=== PATIENT | male | born 1945 | race Caucasian/White ===

== ENCOUNTER 2020-01-26 12:06 | Outpatient (REF) | payer MEDICARE, SELFPAY ==
[2020-01-26 13:46] LABS: MANUAL DIFF FLAG NO
[2020-01-26 13:51] LABS: Basophils Percent Auto 0.8 % (0-2); Eosinophils Absolute Auto 0.1 X10*3/uL (0.0-0.4); Eosinophils Percent Auto 1.7 % (0-4); Hematocrit 39.9 % (42-52); Hemoglobin 14.2 g/dl (14.0-18.0); Imm Gran Abs Auto 0.01 X10*3/uL (0.00-0.03); Imm Gran Pct Auto 0.2 % (0.0-0.4); Lymphocytes Absolute Auto 1.8 X10*3/uL (1.2-4.9); Lymphocytes Percent Auto 37.3 % (20-40); Mean Corpuscular HGB Conc 35.6 g/dl (31.0-36.0); Mean Corpuscular Hemoglobin 39.2 pg (27.0-33.0); Mean Platelet Volume 9.8 fL (9.4-12.4); Monocytes Absolute Auto 0.4 X10*3/uL (0.1-1.2); Monocytes Percent Auto 8.5 % (2-11); Neutrophils Absolute Auto 2.5 X10*3/uL (2.0-8.3); Neutrophils Percent Auto 51.5 % (45-73); Platelet Count 217 X10*3/uL (160-400); Red Blood Count 3.62 X10*6/uL (4.60-5.80); Red Cell Distribution Width 11.6 % (11.0-16.0); White Blood Count 4.8 X10*3/uL (4.8-10.8)
[2020-01-26 13:52] LABS: Mean Corpuscular Volume 110.2 fL (80-98)
[2020-01-26 14:36] LABS: Alanine Aminotransferase 61 U/L (0-40); Albumin Level 4.4 g/dL (3.5-5.0); Alkaline Phosphatase 65 U/L (39-117); Anion Gap 12 (12-20); Aspartate Amino Transferase 69 U/L (5-37); Bilirubin Total 0.7 mg/dL (0.0-1.0); Blood Urea Nitrogen 17 mg/dL (9-16); Calcium 9.2 mg/dL (8.4-10.2); Carbon Dioxide 27 mmol/L (22-29); Chloride 105 mmol/L (96-108); Estimated Glomerular Filt Rate > 60; Glucose Random 114 mg/dL (60-115); Sodium 139 mmol/L (135-145); Total Protein 6.8 g/dL (6.5-8.0)
== END 2020-01-26 12:07 | disposition home or self-care (01) ==
LOC: HO.10HDL 12:06
PROVIDERS: Visit Provider Internal Medicine
DX: I25.10 Atherosclerotic heart disease of native coronary artery without angina pectoris (principal); I48.0 Paroxysmal atrial fibrillation; R79.89 Other specified abnormal findings of blood chemistry
CPT/HCPCS: 36415; 80053; 85025; 85060

== ENCOUNTER 2020-02-26 08:14 | Outpatient (REF) | payer MEDICARE, SELFPAY ==
[2020-02-26 09:28] LABS: Blood Urea Nitrogen 19 mg/dL (9-16); Estimated Glomerular Filt Rate > 60
== END 2020-02-26 08:15 | disposition home or self-care (01) ==
LOC: HO.LAB 08:14
PROVIDERS: PCP Internal Medicine; Visit Provider Internal Medicine
DX: I48.91 Unspecified atrial fibrillation (principal)
CPT/HCPCS: 82565; 84520

== ENCOUNTER → 2020-03-28 15:53 | Outpatient (BNVA) | payer MEDICARE, SELFPAY | PROVIDERS: PCP Internal Medicine; Visit Provider Internal Medicine Cardiovascular Disease | DX: I48.19 Other persistent atrial fibrillation (principal) | CPT/HCPCS: 99212 ==

== ENCOUNTER 2020-03-29 09:54 | Day surgery (SDC) | payer MEDICARE, SELFPAY ==
[2020-03-29] VITALS (7 sets, daily range): BP systolic 97–138; BP diastolic 56–74; PULSE 62–115; RESP 14–18; TEMP 36.1–36.2; O2SAT 97–99; BMI 29.7
--- NOTE | 2020-03-29 11:42 | HO.ANESPROP2 ---
[facility] Past Medical History Medical History Bilateral carotid artery disease HTN (hypertension) Persistent atrial fibrillation Family History Family History Father Stroke Mother No problems noted. Surgical History Surgical History History of carotid endarterectomy Hx of cholecystectomy Social History Social History Smoking Status: Never smoker Second Hand Smoke Exposure: No Use of substances other than those prescribed or required for medical reasons: No Advance Directives: Yes Advance Directives Information Provided: No Advance Directives on File: Yes Advance Directives Date on File: 01/26/20 Meds Allergies Allergy/AdvReac Type Severity Reaction Status Date / Time nevirapine [From Viramune] Allergy Mild HIGH Verified 03/29/20 10:15 TEMP-WILLA JOHNSONS SYNDROME abacavir [From ZIAGEN] Allergy Unknown MOVES FAT Verified 03/29/20 10:15 IN BODY neveripine Allergy Unknown brown/Aneesh Uncoded 12/24/19 00:00 syndrome ziagen Allergy Unknown abnormal Uncoded 12/24/19 00:00 fat distribution Home Medications Medication Instructions Recorded Confirmed Type albuterol sulfate 90 mcg/actuation INHALATION 03/28/20 03/28/20 History aerosol inhaler alprazolam 0.25 mg tablet 0.25 mg PO BID PRN 03/28/20 03/28/20 History amiodarone 100 mg tablet 200 mg PO DAILY 03/28/20 03/28/20 History atorvastatin 40 mg tablet 40 mg PO DAILY 03/28/20 03/28/20 History cholecalciferol (vitamin D3) 50 50 mcg PO DAILY 03/28/20 03/28/20 History mcg (2,000 unit) capsule efavirenz 600 mg tablet 600 mg PO BEDTIME 03/28/20 03/28/20 History emtricitabine 200 mg-tenofovir 1 tab PO DAILY 03/28/20 03/28/20 History alafenamide fumarate 25 mg tablet gabapentin 300 mg capsule 300 mg PO BID 03/28/20 03/28/20 History ipratropium bromide 0.03 % nasal spray INTRANASAL 03/28/20 03/28/20 History spray levocarnitine 330 mg tablet mg PO 03/28/20 03/28/20 History loperamide 2 mg capsule 2 mg PO Q6H PRN 03/28/20 03/28/20 History metoprolol tartrate 25 mg tablet 25 mg PO BID 03/28/20 03/28/20 History multivitamin,aa-waqf-nsjxwykz 1 tab PO DAILY 03/28/20 03/28/20 History omega 8-ywj-bmm-fish oil 100 cap PO 03/28/20 03/28/20 History mg-160 mg-1,000 mg capsule raltegravir 400 mg tablet 400 mg PO BID 03/28/20 03/28/20 History rivaroxaban 20 mg tablet 20 mg PO DAILY 03/28/20 03/28/20 History tamsulosin 0.4 mg capsule 0.8 mg PO BEDTIME 03/28/20 03/28/20 History vitamin B complex 1 tab PO DAILY 03/28/20 03/28/20 History zidovudine 300 mg tablet 300 mg PO BID 03/28/20 03/28/20 History rivaroxaban [Xarelto] 1 tab PO DAILY 03/29/20 03/29/20 History Exam Exam Date and Time: March 29, 2020 1142 Height,Weight and Vital Signs: Height 5 ft 10 in Weight 93.894 kg Last Vital Signs Temp 97.2 F 03/29/20 10:24 Pulse 115 H 03/29/20 10:24 Resp 16 03/29/20 10:24 BP 100/72 03/29/20 10:24 Pulse Ox 97 03/29/20 10:24 Airway Mallampati Class: II (Top 4 front caps, ) TM Dist: >3cm Neck ROM: Full Partial: Upper (Perm) Heart: RRR Lungs: CTA BL Assessment and Plan Assessment Anesthesia Assessment: Anesthesia Plan Discussed and Chart Reviewed Final Anesthetic Review NPO: Yes (Sip water with meds) ASA Class: II Final Preanesthetic Review: Meds/Allgs Chart Reviewed and Consent Obtained/Reviewed Patient Risk: Intermediate Procedure Risk: Intermediate Anesthetic Plan Anesthetic Plan: MAC: Disposition: Standard PACU
--- NOTE | 2020-03-29 11:52 | MHC.SHP ---
Pre-Procedural Eval Section A The patient is an INPATIENT: No Changes since office visit: Yes Changes in Medication and Yes Patient answered all questions; No Cold of Flu in the past 2 weeks and No New Medical Problems The History & Physical has been completed within 30 days and I have reviewed it.: Yes Section B Chief Complaint: paroxysmal atrial fibrillation Allergies: Allergies Allergy/AdvReac Type Severity Reaction Status Date / Time nevirapine [From Viramune] Allergy Mild HIGH Verified 03/29/20 10:15 TEMP-WILLA JOHNSONS SYNDROME abacavir [From ZIAGEN] Allergy Unknown MOVES FAT Verified 03/29/20 10:15 IN BODY neveripine Allergy Unknown brown/Aneesh Uncoded 12/24/19 00:00 syndrome ziagen Allergy Unknown abnormal Uncoded 12/24/19 00:00 fat distribution Plan Patient has been examined and remains a candidate for the planned procedure
--- NOTE | 2020-03-29 12:11 | ECG_ITS ---
Test Reason : S/P CARDIOVERSION Blood Pressure : / mmHG Vent. Rate : 068 BPM Atrial Rate : 068 BPM P-R Int : 194 ms QRS Dur : 086 ms QT Int : 416 ms P-R-T Axes : 049 031 058 degrees QTc Int : 442 ms Normal sinus rhythm Nonspecific T wave abnormality Abnormal ECG When compared with ECG of 09-OCT-2018 11:34, No significant changes seen Referred By: Louie Bustamante Electronically Signed By:VIVI ANDERSON
--- NOTE | 2020-03-29 12:19 | HO.CARDIVERS ---
Cardioversion Procedure Note Cardioversion Date of Procedure: 03/29/2020 Ordering Provider: myself Performing Provider: myself Indication for Procedure: persistent symptomatic atrial fibrillation after recent ablation Pre-Op Diagnosis: persistent atrial fibrillation Post-Op Diagnosis: same Performed with Transesophageal Echo: No History: see the preoperative history and physical Consent: Verbal and Written consent was obtained from the patient before starting. The patient was made aware of the risk, benefit, alternatives, 2nd opinion. Patient agreed Procedure: After consent obtained, cardioversion pads were attached inotrope posterior configurationand the patient was sedated by the anesthesia team. Once adequate sedation achieved, patient was delivered 200 joules of biphasic synchronized energy into posterior configuration. Patient converted successfully to sinus rhythm Complications: none Impression: 1. resistant atrial fibrillation requiring repeat cardioversion after recent ablation Recommendations: plan: 1. amiodarone 200 mg b.i.d. for 1 week followed by 200 mg daily 2. Continue Xarelto uninterrupted 3. 12 lead EKG 4. Holter monitor in 2 weeks followed by office visit in 4 weeks
--- NOTE | 2020-03-29 13:09 | HO.POSTANES ---
Post Anesthesia Evaluation Post Anesthesia Evaluation Vital Signs: Vital Signs Temp Pulse Resp BP Pulse Ox 03/29/20 12:55 97 F 65 18 116/74 99 03/29/20 12:40 62 18 111/71 98 03/29/20 12:26 71 16 97/63 99 03/29/20 12:20 66 16 105/56 L 99 03/29/20 12:15 67 16 138/70 98 03/29/20 12:10 97 F 67 14 138/70 99 03/29/20 10:24 97.2 F 115 H 16 100/72 97 Anesthesia: General (mask) Mental Status: Awake Pain Control: Satisfactory Nausea/Vomiting: None Hydration: Adequate Anesthesia-Related Issues: No Anes. Related Issues
== END 2020-03-29 13:15 | disposition home or self-care (01) ==
PROVIDERS: PCP Internal Medicine; Visit Provider Internal Medicine Cardiovascular Disease
PROC: 5A2204Z Restoration of Cardiac Rhythm, Single (ICD-10-PCS; principal; 2020-03-29 12:00)
DX: I48.19 Other persistent atrial fibrillation (principal); Z79.01 Long term (current) use of anticoagulants; I10 Essential (primary) hypertension
CPT/HCPCS: 92960; 93005

== ENCOUNTER 2020-03-31 10:23 | Outpatient (REF) | payer MEDICARE, SELFPAY ==
[2020-03-31 11:32] LABS: MANUAL DIFF FLAG NO
[2020-03-31 11:48] LABS: Basophils Absolute Auto 0.1 X10*3/uL (0.0-0.2); Basophils Percent Auto 0.8 % (0-2); Eosinophils Absolute Auto 0.1 X10*3/uL (0.0-0.4); Eosinophils Percent Auto 2.1 % (0-4); Hematocrit 38.3 % (42-52); Hemoglobin 13.4 g/dl (14.0-18.0); Imm Gran Abs Auto 0.03 X10*3/uL (0.00-0.03); Imm Gran Pct Auto 0.5 % (0.0-0.4); Lymphocytes Absolute Auto 2.9 X10*3/uL (1.2-4.9); Lymphocytes Percent Auto 43.5 % (20-40); Mean Corpuscular Hemoglobin 38.6 pg (27.0-33.0); Mean Platelet Volume 10.1 fL (9.4-12.4); Monocytes Absolute Auto 0.7 X10*3/uL (0.1-1.2); Monocytes Percent Auto 10.9 % (2-11); Neutrophils Absolute Auto 2.8 X10*3/uL (2.0-8.3); Neutrophils Percent Auto 42.2 % (45-73); Platelet Count 268 X10*3/uL (160-400); Red Blood Count 3.47 X10*6/uL (4.60-5.80); White Blood Count 6.6 X10*3/uL (4.8-10.8)
[2020-03-31 11:57] LABS: Mean Corpuscular Volume 110.4 fL (80-98)
[2020-03-31 12:07] LABS: Estimated Average Glucose 117 mg/dL; Hemoglobin A1c % 5.7 %
[2020-03-31 12:08] LABS: Alanine Aminotransferase 44 U/L (0-40); Albumin Level 4.4 g/dL (3.5-5.0); Alkaline Phosphatase 67 U/L (39-117); Anion Gap 13 (12-20); Aspartate Amino Transferase 35 U/L (5-37); Bilirubin Total 0.4 mg/dL (0.0-1.0); Blood Urea Nitrogen 18 mg/dL (9-16); Calcium 9.2 mg/dL (8.4-10.2); Carbon Dioxide 26 mmol/L (22-29); Chloride 105 mmol/L (96-108); Estimated Glomerular Filt Rate > 60; Glucose Random 96 mg/dL (60-115); Potassium 4.5 mmol/l (3.3-5.1); Sodium 139 mmol/L (135-145); Total Protein 6.9 g/dL (6.5-8.0)
[2020-04-03 12:23] LABS: Absolute CD3 Count 2294 cells/uL (840-3060); Absolute CD4 Count 976 cells/uL (490-1740); Absolute CD8 Count 1320 cells/uL (180-1170); Absolute Lymphocytes 2848 cells/uL (850-3900); CD4 CD8 Ratio 0.74 (0.86-5.00); Percent CD3 Cells 81 % (57-85); Percent CD4 Cells 34 % (30-61); Percent CD8 Cells 46 % (12-42)
[2020-04-03 20:57] LABS: HIV RNA PCR Qn Copies 31 copies/mL (NOT DETECTED); HIV RNA PCR Qn Log Copies 1.49 (NOT DETECTED)
[2020-04-28 16:25] LABS: CT PCR NOT DETECTED (Not Detect.); NG PCR NOT DETECTED (Not Detect.)
== END 2020-03-31 10:24 | disposition home or self-care (01) ==
LOC: HO.LAB 10:23
PROVIDERS: PCP Internal Medicine; Visit Provider Internal Medicine Infectious Disease
DX: B20 Human immunodeficiency virus [HIV] disease (principal); R73.9 Hyperglycemia, unspecified
CPT/HCPCS: 36415; 80053; 83036; 85025; 86359; 86360; 87491; 87536; 87591

== ENCOUNTER → 2020-04-07 08:58 | Outpatient (BNVA) | payer MEDICARE, SELFPAY | PROVIDERS: PCP Internal Medicine; Visit Provider Internal Medicine Cardiovascular Disease | DX: I48.19 Other persistent atrial fibrillation (principal) | CPT/HCPCS: 93005; 99212 ==

== ENCOUNTER 2020-04-13 11:37 | Day surgery (SDC) | payer MEDICARE, SELFPAY ==
[2020-04-10 15:09] VITALS: BMI 30.1
--- NOTE | 2020-04-12 08:42 | P.CONAN_ITS ---
Documented by User: Anisha Magallon 04/12/20 08:46 HPI - Anesthesia Eval Consult details Narrative: 75yo M for Cardioversion s/p Cardioversion 03/29/20 with GA-mask [facility] Past Medical History Medical History Bilateral carotid artery disease History of cardioversion HTN (hypertension) Persistent atrial fibrillation Family History Family History Father Stroke Mother No problems noted. Surgical History Surgical History History of carotid endarterectomy Hx of cholecystectomy Social History Social History Smoking Status: Former smoker Smoking Quit Date: 40 YRS AGO Second Hand Smoke Exposure: No Use of substances other than those prescribed or required for medical reasons: Yes Substance Use Frequency: Occasionally Advance Directives: Yes Advance Directives on File: Yes Advance Directives Date on File: 01/26/20 Meds Allergies Allergy/AdvReac Type Severity Reaction Status Date / Time nevirapine [From Viramune] Allergy Mild HIGH Verified 04/10/20 15:15 TEMP-WILLA JOHNSONS SYNDROME abacavir [From ZIAGEN] Allergy Unknown MOVES FAT Verified 04/10/20 15:15 IN BODY neveripine Allergy Unknown brown/Aneesh Uncoded 04/13/20 11:40 syndrome ziagen Allergy Unknown abnormal Uncoded 04/13/20 11:40 fat distribution Home Medications Medication Instructions Recorded Confirmed Type albuterol sulfate 90 mcg/actuation INHALATION 03/28/20 04/07/20 History aerosol inhaler alprazolam 0.25 mg tablet 0.25 mg PO BID PRN 03/28/20 04/07/20 History atorvastatin 40 mg tablet 40 mg PO DAILY 03/28/20 04/07/20 History cholecalciferol (vitamin D3) 50 50 mcg PO DAILY 03/28/20 04/07/20 History mcg (2,000 unit) capsule efavirenz 600 mg tablet 600 mg PO BEDTIME 03/28/20 04/07/20 History emtricitabine 200 mg-tenofovir 1 tab PO DAILY 03/28/20 04/07/20 History alafenamide fumarate 25 mg tablet gabapentin 300 mg capsule 300 mg PO BID 03/28/20 04/07/20 History ipratropium bromide 0.03 % nasal spray INTRANASAL 03/28/20 04/07/20 History spray levocarnitine 330 mg tablet mg PO 03/28/20 04/07/20 History loperamide 2 mg capsule 2 mg PO Q6H PRN 03/28/20 04/07/20 History metoprolol tartrate 25 mg tablet 25 mg PO BID 03/28/20 04/07/20 History multivitamin,qx-ivpk-dyzvswfa 1 tab PO DAILY 03/28/20 04/07/20 History omega 7-wqa-chy-fish oil 100 cap PO 03/28/20 04/07/20 History mg-160 mg-1,000 mg capsule raltegravir 400 mg tablet 400 mg PO BID 03/28/20 04/07/20 History rivaroxaban 20 mg tablet 20 mg PO DAILY 03/28/20 04/07/20 History tamsulosin 0.4 mg capsule 0.8 mg PO BEDTIME 03/28/20 04/07/20 History vitamin B complex 1 tab PO DAILY 03/28/20 04/07/20 History zidovudine 300 mg tablet 300 mg PO BID 03/28/20 04/07/20 History Xarelto 1 tab PO DAILY 03/29/20 04/07/20 History ergocalciferol (vitamin D2) 2,000 unit PO DAILY 04/13/20 04/13/20 History [Vitamin D2] pantoprazole 40 mg PO BID 04/13/20 04/13/20 History Exam Exam Date and Time: April 12, 2020 0842 Height,Weight and Vital Signs: Height 5 ft 10 in Weight 95.254 kg Pertinent Lab Results Pertinent Lab Results: Laboratory Tests 03/31/20 03/31/20 10:36 10:36 WBC 6.6 Hgb 13.4 L Hct 38.3 L Plt Count 268 Sodium 139 Potassium 4.5 Chloride 105 Carbon Dioxide 26 BUN 18 H Creatinine 0.98 Assessment and Plan Assessment Anesthesia Assessment: Chart Reviewed Documented by User: Jimmy Landeros MD 04/13/20 12:30 [facility] Past Medical History Medical History Bilateral carotid artery disease History of cardioversion HTN (hypertension) Persistent atrial fibrillation Family History Family History Father Stroke Mother No problems noted. Surgical History Surgical History History of carotid endarterectomy Hx of cholecystectomy Social History Social History Smoking Status: Former smoker Smoking Quit Date: 40 YRS AGO Second Hand Smoke Exposure: No Use of substances other than those prescribed or required for medical reasons: Yes Substance Use Frequency: Occasionally Advance Directives: Yes Advance Directives on File: Yes Advance Directives Date on File: 01/26/20 Meds Allergies Allergy/AdvReac Type Severity Reaction Status Date / Time nevirapine [From Viramune] Allergy Mild HIGH Verified 04/10/20 15:15 TEMP-WILLA JOHNSONS SYNDROME abacavir [From ZIAGEN] Allergy Unknown MOVES FAT Verified 04/10/20 15:15 IN BODY neveripine Allergy Unknown brown/Aneesh Uncoded 04/13/20 11:40 syndrome ziagen Allergy Unknown abnormal Uncoded 04/13/20 11:40 fat distribution Home Medications Medication Instructions Recorded Confirmed Type albuterol sulfate 90 mcg/actuation INHALATION 03/28/20 04/07/20 History aerosol inhaler alprazolam 0.25 mg tablet 0.25 mg PO BID PRN 03/28/20 04/07/20 History atorvastatin 40 mg tablet 40 mg PO DAILY 03/28/20 04/07/20 History cholecalciferol (vitamin D3) 50 50 mcg PO DAILY 03/28/20 04/07/20 History mcg (2,000 unit) capsule efavirenz 600 mg tablet 600 mg PO BEDTIME 03/28/20 04/07/20 History emtricitabine 200 mg-tenofovir 1 tab PO DAILY 03/28/20 04/07/20 History alafenamide fumarate 25 mg tablet gabapentin 300 mg capsule 300 mg PO BID 03/28/20 04/07/20 History ipratropium bromide 0.03 % nasal spray INTRANASAL 03/28/20 04/07/20 History spray levocarnitine 330 mg tablet mg PO 03/28/20 04/07/20 History loperamide 2 mg capsule 2 mg PO Q6H PRN 03/28/20 04/07/20 History metoprolol tartrate 25 mg tablet 25 mg PO BID 03/28/20 04/07/20 History multivitamin,gp-hqbq-lieekrdc 1 tab PO DAILY 03/28/20 04/07/20 History omega 6-dcu-hxu-fish oil 100 cap PO 03/28/20 04/07/20 History mg-160 mg-1,000 mg capsule raltegravir 400 mg tablet 400 mg PO BID 03/28/20 04/07/20 History rivaroxaban 20 mg tablet 20 mg PO DAILY 03/28/20 04/07/20 History tamsulosin 0.4 mg capsule 0.8 mg PO BEDTIME 03/28/20 04/07/20 History vitamin B complex 1 tab PO DAILY 03/28/20 04/07/20 History zidovudine 300 mg tablet 300 mg PO BID 03/28/20 04/07/20 History Xarelto 1 tab PO DAILY 03/29/20 04/07/20 History ergocalciferol (vitamin D2) 2,000 unit PO DAILY 04/13/20 04/13/20 History [Vitamin D2] pantoprazole 40 mg PO BID 04/13/20 04/13/20 History Exam Airway Mallampati Class: II TM Dist: >3cm Neck ROM: Full Loose/Missing/Broken Teeth: Yes (Front crowns) Heart: irregular Assessment and Plan Assessment Anesthesia Assessment: Anesthesia Plan Discussed and Chart Reviewed Final Anesthetic Review NPO: Yes ASA Class: III Final Preanesthetic Review: No Changes in Pt Med Stat, Meds/Allgs Chart Reviewed, Consent Obtained/Reviewed and Anes Risks/Benef Reviewed Patient Risk: Intermediate Procedure Risk: Low Anesthetic Plan Anesthetic Plan: GA Disposition: Standard PACU
[2020-04-13] VITALS (16 sets, daily range): BP systolic 86–147; BP diastolic 49–99; PULSE 54–82; RESP 16; TEMP 36.2–36.4; O2SAT 98–99; BMI 29.8
--- NOTE | 2020-04-13 12:04 | MHC.SHP ---
Pre-Procedural Eval Section A The patient is an INPATIENT: No Changes since office visit: Yes Patient answered all questions; No Cold of Flu in the past 2 weeks, No New Medical Problems and No Changes in Medication The History & Physical has been completed within 30 days and I have reviewed it.: Yes Section B Chief Complaint: afib Allergies: Allergies Allergy/AdvReac Type Severity Reaction Status Date / Time nevirapine [From Viramune] Allergy Mild HIGH Verified 04/10/20 15:15 TEMP-WILLA JOHNSONS SYNDROME abacavir [From ZIAGEN] Allergy Unknown MOVES FAT Verified 04/10/20 15:15 IN BODY neveripine Allergy Unknown brown/Aneesh Uncoded 04/13/20 11:40 syndrome ziagen Allergy Unknown abnormal Uncoded 04/13/20 11:40 fat distribution Plan I have reviewed the history and physical and performed a pertinent physical examination on my patient. No changes have occurred unless specified.
[2020-04-13] MEDS: Lactated Ringers 1,000 ML 50 ML IVCONT (12:11)
--- NOTE | 2020-04-13 12:39 | ECG_ITS ---
Test Reason : S/P CARDIOVERSION Blood Pressure : / mmHG Vent. Rate : 056 BPM Atrial Rate : 056 BPM P-R Int : 214 ms QRS Dur : 090 ms QT Int : 452 ms P-R-T Axes : 049 044 050 degrees QTc Int : 436 ms Sinus bradycardia with 1st degree A-V block Otherwise normal ECG When compared with ECG of 29-MAR-2020 12:25, No significant change was found Referred By: Louie Bustamante Electronically Signed By:LOUIE BUSTAMANTE MD
--- NOTE | 2020-04-13 12:49 | HO.CARDIVERS ---
Cardioversion Procedure Note Cardioversion Date of Procedure: 04/13/2020 Ordering Provider: Myself Performing Provider: Myself Indication for Procedure: Symptomatic persistent atrial fibrillation Pre-Op Diagnosis: Persistent atrial fibrillation Post-Op Diagnosis: Sinus rhythm Performed with Transesophageal Echo: No History: See history and physical for details Consent: Verbal and Written consent was obtained from the patient before starting. The patient was made aware of the risk , benefits, alternatives, 2nd opinion Procedure: After consent obtained, cardioversion pads were attached in AP configuration and the patient was sedated by the anesthesia team. Once adequate sedation achieved, patient was delivered 200 joules of biphasic synchronized energy in anteroposterior configuration. Patient converted successfully to sinus rhythm. Complications: Non Impression: Successful conversion to sinus rhythm Recommendations: 1. Continue amiodarone 400 mg b.i.d. for 2 days followed by 200 mg daily. Will follow up with EPS for repeat ablation. 2. Continue Xarelto 3. Stat 12 lead EKG post cardioversion. Will follow up in the clinic in 2 weeks time
== END 2020-04-13 14:25 | disposition home or self-care (01) ==
PROVIDERS: PCP Internal Medicine; Visit Provider Internal Medicine Cardiovascular Disease
PROC: 5A2204Z Restoration of Cardiac Rhythm, Single (ICD-10-PCS; principal; 2020-04-13 12:30)
DX: I48.19 Other persistent atrial fibrillation (principal); Z79.01 Long term (current) use of anticoagulants; I10 Essential (primary) hypertension; I25.10 Atherosclerotic heart disease of native coronary artery without angina pectoris; Z79.899 Other long term (current) drug therapy; Z88.8 Allergy status to other drugs, medicaments and biological substances
CPT/HCPCS: 92960; 93005

== ENCOUNTER → 2020-04-27 13:09 | Outpatient (BNVA) | payer MEDICARE, SELFPAY | PROVIDERS: PCP Internal Medicine; Visit Provider Internal Medicine Cardiovascular Disease | DX: I48.0 Paroxysmal atrial fibrillation (principal); I10 Essential (primary) hypertension | CPT/HCPCS: 93005; 99212 ==

== ENCOUNTER 2020-06-01 10:21 | Outpatient (REF) | payer MEDICARE, SELFPAY ==
--- NOTE | ~2020-06-01 | US_ITS ---
EXAMINATION: US EXTRACRANIAL CAROTID DUPLEX, BILATERAL CLINICAL INFORMATION: This is a 75-year-old male with occlusion/stenosis of left carotid artery. Tobacco use. Hypertension. Status post left endarterectomy. COMPARISON: Comparison is made to a previous study dated 05/06/2019 which demonstrated 0-49% right internal carotid artery stenosis and 50-79% left internal carotid artery stenosis. TECHNIQUE: Real-time ultrasound and Doppler techniques (integrating B-mode 2-D vascular images, Doppler spectral analysis and color-flow Doppler imaging) were utilized to interrogate the extracranial carotid arteries, the vertebral arteries and proximal subclavian arteries bilaterally. The degree of stenosis is determined by criteria similar to NASCET. FINDINGS: Right Side: 1. There is minimal atherosclerotic plaque seen in the bifurcation/proximal ICA region. 2. The common carotid artery PSV proximally is 102 cm/s and distally 73 cm/s. 3. The proximal internal carotid artery velocities are 113 cm/s systolic and 29 cm/s diastolic. 4. The proximal external carotid artery PSV is 41 cm/s. There is no hemodynamically significant stenosis in the external carotid artery. 5. The vertebral artery shows antegrade flow. 6. The subclavian artery waveforms are normal. Left Side: 1. There is minimal atherosclerotic plaque seen in the bifurcation/proximal ICA region. 2. The common carotid artery PSV proximally is 96 cm/s and distally 82 cm/s. 3. The proximal internal carotid artery velocities are 143 cm/s systolic and 39 cm/s diastolic. 4. The proximal external carotid artery PSV is 265 cm/s. There is a hemodynamically significant stenosis within the external carotid artery. This was seen previously. 5. The vertebral artery shows antegrade flow. 6. The subclavian artery waveforms are normal. US/US carotid duplex BI IMPRESSION: 1. RIGHT: Minimal, non-hemodynamically significant stenosis of the proximal right internal carotid artery corresponding to a 0-49% stenosis by velocity criteria. There is no change in the category severity of disease when compared to the previous study. 2. LEFT: The current velocity of the internal carotid artery measures less than 150 cm/s. Post endarterectomy this would correspond to 0-49% internal carotid artery stenosis. Therefore, the category severity of disease would be less severe on the current study when compared to the previous study dated 05/06/2019 when the velocity in the internal carotid artery measured 170 cm/s.
== END 2020-06-01 10:22 | disposition home or self-care (01) ==
LOC: HO.US 10:21
PROVIDERS: PCP Internal Medicine; Visit Provider Surgery Vascular Surgery
DX: I65.22 Occlusion and stenosis of left carotid artery (principal)
CPT/HCPCS: 93880

== ENCOUNTER → 2020-06-08 13:59 | Outpatient (BNVA) | payer MEDICARE, SELFPAY | PROVIDERS: PCP Internal Medicine; Visit Provider Surgery Vascular Surgery | DX: I65.23 Occlusion and stenosis of bilateral carotid arteries (principal) | CPT/HCPCS: 99212 ==

== ENCOUNTER → 2020-07-25 14:58 | Outpatient (BNVA) | payer MEDICARE, SELFPAY | PROVIDERS: PCP Internal Medicine; Visit Provider Internal Medicine Cardiovascular Disease | DX: I48.0 Paroxysmal atrial fibrillation (principal); I10 Essential (primary) hypertension | CPT/HCPCS: 93005; 99212 ==

== ENCOUNTER 2020-07-26 10:26 | Outpatient (REF) | payer MEDICARE, SELFPAY ==
[2020-07-26 11:47] LABS: MANUAL DIFF FLAG NO
[2020-07-26 11:54] LABS: Basophils Percent Auto 0.6 % (0-2); Eosinophils Absolute Auto 0.1 X10*3/uL (0.0-0.4); Eosinophils Percent Auto 2.2 % (0-4); Hematocrit 38.7 % (42-52); Hemoglobin 14.2 g/dl (14.0-18.0); Imm Gran Abs Auto 0.02 X10*3/uL (0.00-0.03); Imm Gran Pct Auto 0.3 % (0.0-0.4); Lymphocytes Absolute Auto 2.3 X10*3/uL (1.2-4.9); Lymphocytes Percent Auto 35.8 % (20-40); Mean Corpuscular HGB Conc 36.7 g/dl (31.0-36.0); Mean Platelet Volume 10.2 fL (9.4-12.4); Monocytes Absolute Auto 0.5 X10*3/uL (0.1-1.2); Monocytes Percent Auto 7.4 % (2-11); Neutrophils Absolute Auto 3.4 X10*3/uL (2.0-8.3); Neutrophils Percent Auto 53.7 % (45-73); Platelet Count 222 X10*3/uL (160-400); Red Blood Count 3.55 X10*6/uL (4.60-5.80); Red Cell Distribution Width 12.1 % (11.0-16.0); White Blood Count 6.4 X10*3/uL (4.8-10.8)
[2020-07-26 17:32] LABS: Creatinine Urine 134.52 mg/dL; Microalbum/Creatinine Ratio Ur 3.7 ug/mg cr
[2020-07-26 17:39] LABS: Estimated Average Glucose 120 mg/dL; Hemoglobin A1c % 5.8 %
[2020-07-26 18:03] LABS: Alanine Aminotransferase 44 U/L (0-40); Albumin Level 4.3 g/dL (3.5-5.0); Alkaline Phosphatase 69 U/L (39-117); Anion Gap 11 (12-20); Aspartate Amino Transferase 34 U/L (5-37); Bilirubin Total 0.4 mg/dL (0.0-1.0); Blood Urea Nitrogen 13 mg/dL (9-16); Calcium 9.2 mg/dL (8.4-10.2); Carbon Dioxide 29 mmol/L (22-29); Chloride 104 mmol/L (96-108); Estimated Glomerular Filt Rate > 60; Glucose Random 139 mg/dL (60-115); Potassium 5.4 mmol/L (3.3-5.1); Sodium 139 mmol/L (135-145); Total Protein 6.7 g/dL (6.5-8.0)
== END 2020-07-26 10:27 | disposition home or self-care (01) ==
LOC: HO.LAB 10:26
PROVIDERS: PCP Internal Medicine; Visit Provider Internal Medicine
DX: R73.03 Prediabetes (principal); I48.0 Paroxysmal atrial fibrillation; I12.9 Hypertensive chronic kidney disease with stage 1 through stage 4 chronic kidney disease, or unspecified chronic kidney disease; N18.9 Chronic kidney disease, unspecified; K21.9 Gastro-esophageal reflux disease without esophagitis
CPT/HCPCS: 36415; 80053; 82043; 83036; 85025

== ENCOUNTER 2020-07-31 14:38 | Outpatient (REF) | payer MEDICARE, SELFPAY ==
--- NOTE | ~2020-07-31 | XR_ITS ---
EXAMINATION: XR CHEST CLINICAL INFORMATION: Hemoptysis COMPARISON: Previous chest x-ray October 2018 TECHNIQUE: 2 views of the chest were obtained. FINDINGS: No significant abnormality is noted involving the heart, lungs, mediastinum, bony thorax or soft tissues. XR/XR chest 2V IMPRESSION: Unremarkable examination.
== END 2020-07-31 14:39 | disposition home or self-care (01) ==
LOC: HO.XRAY 14:38
PROVIDERS: PCP Internal Medicine; Visit Provider Internal Medicine
DX: R04.2 Hemoptysis (principal)
CPT/HCPCS: 71046

== ENCOUNTER → 2020-08-08 09:21 | Outpatient (BNVA) | payer MEDICARE, SELFPAY | PROVIDERS: PCP Internal Medicine; Visit Provider Internal Medicine Cardiovascular Disease | DX: Z79.899 Other long term (current) drug therapy (principal) | CPT/HCPCS: 93005 ==

== ENCOUNTER → 2020-08-17 15:31 | Outpatient (BNVA) | payer MEDICARE, SELFPAY | PROVIDERS: Visit Provider Urology | DX: N40.1 Benign prostatic hyperplasia with lower urinary tract symptoms (principal); N13.8 Other obstructive and reflux uropathy | CPT/HCPCS: 51798; 99212 ==

== ENCOUNTER 2020-10-04 02:44 | Emergency (ER) | payer OTHER, MEDICARE, SELFPAY ==
--- NOTE | 2020-10-04 06:32 | ED.GENADULT ---
HPI - General Adult General Stated complaint: left knee lac, on blood thinner Time Seen by Provider: 10/04/20 06:26 Source: patient Mode of arrival: ambulatory Limitations: no limitations History of Present Illness HPI narrative: Patient comes emergency room complaining of a laceration to the left side of the knee. Patient states that 15:00 yesterday afternoon, he was doing some yd work, he accidentally hit his knee while doing vine work. Patient cleaned it up very well at home, bandaged it. Initially he did not have any further bleeding. However, in the middle of the night, patient woke up to use the restroom, and noticed that he was bleeding, came to the emergency room. Related Data Home Medications Medication Instructions Recorded Confirmed albuterol sulfate 90 mcg/actuation INHALATION 03/28/20 07/25/20 aerosol inhaler alprazolam 0.25 mg tablet 0.25 mg PO BID PRN 03/28/20 07/25/20 atorvastatin 40 mg tablet 40 mg PO DAILY 03/28/20 07/25/20 cholecalciferol (vitamin D3) 50 50 mcg PO DAILY 03/28/20 07/25/20 mcg (2,000 unit) capsule efavirenz 600 mg tablet 600 mg PO BEDTIME 03/28/20 07/25/20 emtricitabine 200 mg-tenofovir 1 tab PO DAILY 03/28/20 07/25/20 alafenamide fumarate 25 mg tablet gabapentin 300 mg capsule 300 mg PO BID 03/28/20 07/25/20 ipratropium bromide 21 mcg (0.03 spray INTRANASAL 03/28/20 07/25/20 %) nasal spray levocarnitine 330 mg tablet mg PO 03/28/20 07/25/20 loperamide 2 mg capsule 2 mg PO Q6H PRN 03/28/20 07/25/20 multivitamin,dg-jeji-udfcbarn 1 tab PO DAILY 03/28/20 07/25/20 omega 9-nvz-ydf-fish oil 100 cap PO 03/28/20 07/25/20 mg-160 mg-1,000 mg capsule raltegravir 400 mg tablet 400 mg PO BID 03/28/20 07/25/20 rivaroxaban 20 mg tablet 20 mg PO DAILY 03/28/20 07/25/20 tamsulosin 0.4 mg capsule 0.8 mg PO BEDTIME 03/28/20 07/25/20 vitamin B complex 1 tab PO DAILY 03/28/20 07/25/20 zidovudine 300 mg tablet 300 mg PO BID 03/28/20 07/25/20 ergocalciferol (vitamin D2) 2,000 unit PO DAILY 04/13/20 07/25/20 [Vitamin D2] pantoprazole 40 mg PO BID 04/13/20 07/25/20 Previous Rx's Medication Instructions Recorded dronedarone 400 mg tablet 400 mg PO BID #60 tab 07/25/20 metoprolol succinate 25 mg 25 mg PO DAILY 90 Days #90 tab 08/09/20 tablet,extended release 24 hr Allergies Allergy/AdvReac Type Severity Reaction Status Date / Time nevirapine [From Viramune] Allergy Mild HIGH Verified 08/17/20 15:44 TEMP-WILLA JOHNSONS SYNDROME abacavir [From ZIAGEN] Allergy Unknown MOVES FAT Verified 08/17/20 15:44 IN BODY Review of Systems Review of Systems: Constitutional : No Weight loss, No Fever, No Chills, No Night Sweats, No Fatigue, No Malaise ENT/Mouth : No Hearing loss, No Ear Pain, No Nasal Congestion, No Sinus Pain, No Hoarseness, No sore throat, No Rhinorrhea, No Swallowing Difficulty Eyes: No Eye Pain, No Swelling, No Redness, No Foreign Body, No Discharge, No Vision Changes Cardiovascular : No Chest Pain, No SOB, No Dyspnea on Exertion, No Orthopnea, No Edema, No Palpitations Respiratory : No Cough, No Sputum, No Wheezing, No Smoke Exposure, No Dyspnea Gastrointestinal : No Nausea, No Vomiting, No Diarrhea, No Constipation, No abdominal Pain, No Hematochezia, No Melena Genitourinary : no irregular bleeding, No Dysuria, No Urinary Frequency, No Hematuria, No Urinary Incontinence, No Urgency, No Flank Pain, No Urinary Flow Changes, No Hesitancy Musculoskeletal : No joint pain, No Myalgias, No Joint Swelling Skin : Laceration adjacent to the left knee Neuro : No Weakness, No Numbness, No Paresthesias, No Loss of Consciousness, No Dizziness, No Headache Psych : No Anxiety/Panic, No Depression, No SI/HI/AH/VH, No Social Issues, Heme/Lymph: No Bruising, No Bleeding,No Lymphadenopathy Endocrine : No Polyuria, No Polydipsia, No Temperature Intolerance [facility] Past Medical History Medical History Bilateral carotid artery disease History of cardioversion HTN (hypertension) Paroxysmal atrial fibrillation Persistent atrial fibrillation Surgical History History of carotid endarterectomy Hx of cholecystectomy Family History Family History Father Stroke Mother No problems noted. Social History Social History Second Hand Smoke Exposure: No Advance Directives: Yes Advance Directives on File: Yes Advance Directives Date on File: 01/26/20 Physical Exam Vital Signs: Appearance: Alert. Oriented X3. No acute distress. Eyes: Pupils equal, round and reactive to light. ENT: Pharynx normal. Neck: Normal inspection. Neck supple. No lymph nodes noted. No crepitus CVS: Normal heart rate and rhythm. Pulses normal. Normal S1 and S2 Respiratory: No respiratory distress. Breath sounds normal. No Wheezing. No rales Abdomen: Soft and nontender. No rigidity. No distention. good BS x4 Skin: Skin warm and dry. Normal skin color. Normal skin turgor. Extremities: No lower extremity edema, 1 cm laceration adjacent to the left knee, small active bleeding. Neuro: Oriented X 3. No motor deficit. No sensory deficit. Moving all extermities. No slurred speech. Course Course Course Narrative: Patient's wound was thoroughly cleaned, 3 stitches applied, patient tolerated well the procedure, localized bleeding stopped. Patient received a booster for Tdap Procedures Laceration Laceration 1: Site: lower extremity Side (If applicable): left Size (cm): 1 Description: linear Depth: simple, single layer Local Anesthetic: lidocaine 2% Amount of anesthesia used (mL): 3 Pre-repair: irrigated extensively Skin layer closed with: nylon Size (cm): 4-0 Number of sutures: 3 Technique: simple, interrupted Discharge Plan Discharge Clinical Impression: Laceration Patient Disposition: Home, Self-Care Instructions: Laceration (ED) Additional Instructions: Your sutures need to be removed in 7 days. If you see any signs of infection such as redness, pus drainage, fever, please return to the emergency room. Please follow-up with your primary care physician tomorrow. If you have any worsening or new symptoms, please return to the emergency room or call 911 Prescriptions: No Action metoprolol succinate 25 mg tablet extended release 24 hr 25 mg PO DAILY 90 Days Qty: 90 RF: 1 pantoprazole 40 mg Tablet,Delayed Release (Dr/Ec) 40 mg PO BID RF: 0 Vitamin D2 1,000 unit Capsule 2,000 unit PO DAILY RF: 0 zidovudine 300 mg tablet 300 mg PO BID RF: 0 alprazolam 0.25 mg tablet 0.25 mg PO BID PRNRF: 0 gabapentin 300 mg capsule 300 mg PO BID RF: 0 rivaroxaban 20 mg tablet 20 mg PO DAILY RF: 0 atorvastatin 40 mg tablet 40 mg PO DAILY RF: 0 emtricitabine-tenofovir alafen 200-25 mg tablet 1 tab PO DAILY RF: 0 tamsulosin 0.4 mg capsule 0.8 mg PO BEDTIME RF: 0 raltegravir 400 mg tablet 400 mg PO BID RF: 0 efavirenz 600 mg tablet 600 mg PO BEDTIME RF: 0 ipratropium bromide 0.03 % spray,non-aerosol intranasal RF: 0 albuterol sulfate 90 mcg/actuation HFA aerosol inhaler inhalation RF: 0 levocarnitine 330 mg tablet PO RF: 0 vitamin B complex [B Complex-Vitamin B12] Tablet 1 tab PO DAILY RF: 0 Complete Multivitamin Tablet 1 tab PO DAILY RF: 0 cholecalciferol (vitamin D3) 50 mcg (2,000 unit) capsule 50 mcg PO DAILY RF: 0 Fish Oil 100-160-1,000 mg capsule PO RF: 0 loperamide 2 mg capsule 2 mg PO Q6H PRNRF: 0 Multaq 400 mg tablet 400 mg PO BID Qty: 60 RF: 3
[2020-10-04] MEDS: Diphth,Pertus(ACell),Tet Adult 0.5 ML SYRINGE IM (06:37)
[2020-10-04] MEDS: Lidocaine HCl 2 % MPF 5 ML VIAL 10 ML INFILTRATI (06:37)
[2020-10-04 07:02] VITALS: BP 171/89; PULSE 74; RESP 18; TEMP 36.7; O2SAT 98; BMI 29.8
== END 2020-10-04 07:09 | disposition home or self-care (01) ==
PROVIDERS: Emergency Provider Emergency Medicine; PCP Internal Medicine
DX: S81.012A Laceration without foreign body, left knee, initial encounter (principal); I48.0 Paroxysmal atrial fibrillation; I48.19 Other persistent atrial fibrillation; I10 Essential (primary) hypertension; Z79.01 Long term (current) use of anticoagulants; X58.XXXA Exposure to other specified factors, initial encounter; Y93.9 Activity, unspecified; Y92.007 Garden or yard of unspecified non-institutional (private) residence as the place of occurrence of the external cause; Y99.9 Unspecified external cause status
CPT/HCPCS: 12001; 90471; 90715; 99282; 99284

== ENCOUNTER → 2020-10-24 09:43 | Outpatient (BNVA) | payer MEDICARE, SELFPAY | PROVIDERS: PCP Internal Medicine; Referring Provider Internal Medicine; Visit Provider Internal Medicine Cardiovascular Disease | DX: I48.0 Paroxysmal atrial fibrillation (principal); I10 Essential (primary) hypertension | CPT/HCPCS: 93005; 99212 ==

== ENCOUNTER 2020-11-02 08:24 | Outpatient (REF) | payer MEDICARE, SELFPAY ==
[2020-11-02 09:01] LABS: MANUAL DIFF FLAG NO
[2020-11-02 09:10] LABS: Basophils Absolute Auto 0.1 X10*3/uL (0.0-0.2); Eosinophils Absolute Auto 0.1 X10*3/uL (0.0-0.4); Eosinophils Percent Auto 2.2 % (0-4); Hematocrit 38.5 % (42-52); Hemoglobin 13.9 g/dl (14.0-18.0); Imm Gran Abs Auto 0.02 X10*3/uL (0.00-0.03); Imm Gran Pct Auto 0.3 % (0.0-0.4); Lymphocytes Absolute Auto 2.5 X10*3/uL (1.2-4.9); Lymphocytes Percent Auto 42.7 % (20-40); Mean Corpuscular HGB Conc 36.1 g/dl (31.0-36.0); Mean Corpuscular Hemoglobin 39.4 pg (27.0-33.0); Mean Corpuscular Volume 109.1 fL (80-98); Mean Platelet Volume 9.7 fL (9.4-12.4); Monocytes Absolute Auto 0.4 X10*3/uL (0.1-1.2); Monocytes Percent Auto 7.1 % (2-11); Neutrophils Absolute Auto 2.7 X10*3/uL (2.0-8.3); Neutrophils Percent Auto 46.7 % (45-73); Platelet Count 205 X10*3/uL (160-400); Red Blood Count 3.53 X10*6/uL (4.60-5.80); Red Cell Distribution Width 11.9 % (11.0-16.0); White Blood Count 5.8 X10*3/uL (4.8-10.8)
[2020-11-02 09:13] LABS: Estimated Average Glucose 128 mg/dL; Hemoglobin A1c % 6.1 %
[2020-11-02 09:28] LABS: Creatinine Urine 67.71 mg/dL; Microalbumin Urine < 5.0 mg/L
[2020-11-02 09:36] LABS: Alanine Aminotransferase 39 U/L (0-40); Alkaline Phosphatase 70 U/L (39-117); Anion Gap 12 (12-20); Aspartate Amino Transferase 39 U/L (5-37); Bilirubin Total 0.6 mg/dL (0.0-1.0); Blood Urea Nitrogen 16 mg/dL (9-16); Calcium 8.9 mg/dL (8.4-10.2); Carbon Dioxide 22 mmol/L (22-29); Chloride 107 mmol/L (96-108); Cholesterol 137 mg/dL; Estimated Glomerular Filt Rate > 60; Glucose Fasting 149 mg/dL (60-99); HDL Cholesterol 37 mg/dL; LDL Cholesterol Calculated 67 mg/dl; Potassium 4.4 mmol/L (3.3-5.1); Sodium 137 mmol/L (135-145); Total Protein 6.4 g/dL (6.5-8.0); Triglycerides 169 mg/dL
[2020-11-02 09:38] LABS: Alanine Aminotransferase 41 U/L (0-40); Albumin Level 4.1 g/dL (3.5-5.0); Alkaline Phosphatase 74 U/L (39-117); Anion Gap 13 (12-20); Aspartate Amino Transferase 41 U/L (5-37); Bilirubin Total 0.6 mg/dL (0.0-1.0); Blood Urea Nitrogen 16 mg/dL (9-16); Calcium 9.2 mg/dL (8.4-10.2); Carbon Dioxide 24 mmol/L (22-29); Chloride 107 mmol/L (96-108); Estimated Glomerular Filt Rate > 60; Glucose Random 152 mg/dL (60-115); Potassium 4.8 mmol/L (3.3-5.1); Sodium 139 mmol/L (135-145); Total Protein 6.7 g/dL (6.5-8.0)
[2020-11-02 09:48] LABS: Prostate Specific Antigen 1.89 ng/mL (<0.05-4.0)
[2020-11-02 10:52] LABS: CT PCR NOT DETECTED (Not Detect.); NG PCR NOT DETECTED (Not Detect.)
[2020-11-03 03:32] LABS: Syphilis Screen Nonreactive (Nonreactive)
[2020-11-03 16:11] LABS: Absolute CD3 Count 1934 cells/uL (840-3060); Absolute CD4 Count 850 cells/uL (490-1740); Absolute CD8 Count 1051 cells/uL (180-1170); Absolute Lymphocytes 2433 cells/uL (850-3900); CD4 CD8 Ratio 0.81 (0.86-5.00); Percent CD3 Cells 79 % (57-85); Percent CD4 Cells 35 % (30-61); Percent CD8 Cells 43 % (12-42)
[2020-11-07 11:12] LABS: HIV RNA PCR Qn Copies <20 NOT DETECTED copies/mL (NOT DETECTED); HIV RNA PCR Qn Log Copies <1.30 NOT DETECTED (NOT DETECTED)
== END 2020-11-02 08:25 | disposition home or self-care (01) ==
LOC: HO.LAB 08:24
PROVIDERS: Absent Provider Internal Medicine Infectious Disease; PCP Internal Medicine; Visit Provider Internal Medicine
DX: I48.0 Paroxysmal atrial fibrillation (principal); I25.10 Atherosclerotic heart disease of native coronary artery without angina pectoris; E78.00 Pure hypercholesterolemia, unspecified; R73.03 Prediabetes; N40.0 Benign prostatic hyperplasia without lower urinary tract symptoms; B20 Human immunodeficiency virus [HIV] disease; Z12.5 Encounter for screening for malignant neoplasm of prostate
CPT/HCPCS: 36415; 80053; 80061; 82043; 83036; 84153; 85025; 86359; 86360; 86780; 87491; 87536; 87591

== ENCOUNTER 2020-11-16 11:22 | Outpatient (REF) | payer MEDICARE, SELFPAY ==
[2020-11-16 13:41] LABS: MANUAL DIFF FLAG NO
[2020-11-16 13:55] LABS: Alanine Aminotransferase 47 U/L (0-40); Albumin Level 4.2 g/dL (3.5-5.0); Alkaline Phosphatase 73 U/L (39-117); Anion Gap 13 (12-20); Aspartate Amino Transferase 56 U/L (5-37); Bilirubin Total 0.6 mg/dL (0.0-1.0); Blood Urea Nitrogen 19 mg/dL (9-16); C Reactive Protein 0.31 mg/dL (< or = 0.50); Calcium 9.5 mg/dL (8.4-10.2); Carbon Dioxide 23 mmol/L (22-29); Chloride 107 mmol/L (96-108); Estimated Glomerular Filt Rate > 60; Glucose Random 224 mg/dL (60-115); Potassium 4.8 mmol/L (3.3-5.1); Sodium 138 mmol/L (135-145); Total Protein 6.7 g/dL (6.5-8.0)
[2020-11-16 14:00] LABS: Basophils Percent Auto 0.7 % (0-2); Eosinophils Absolute Auto 0.1 X10*3/uL (0.0-0.4); Eosinophils Percent Auto 2.1 % (0-4); Hematocrit 41.3 % (42-52); Hemoglobin 14.7 g/dl (14.0-18.0); Imm Gran Abs Auto 0.01 X10*3/uL (0.00-0.03); Imm Gran Pct Auto 0.2 % (0.0-0.4); Lymphocytes Absolute Auto 2.2 X10*3/uL (1.2-4.9); Lymphocytes Percent Auto 39.1 % (20-40); Mean Corpuscular HGB Conc 35.6 g/dl (31.0-36.0); Mean Corpuscular Hemoglobin 38.9 pg (27.0-33.0); Mean Corpuscular Volume 109.3 fL (80-98); Mean Platelet Volume 10.4 fL (9.4-12.4); Monocytes Absolute Auto 0.4 X10*3/uL (0.1-1.2); Monocytes Percent Auto 6.8 % (2-11); Neutrophils Absolute Auto 2.9 X10*3/uL (2.0-8.3); Neutrophils Percent Auto 51.1 % (45-73); Platelet Count 254 X10*3/uL (160-400); Red Blood Count 3.78 X10*6/uL (4.60-5.80); Red Cell Distribution Width 11.8 % (11.0-16.0); White Blood Count 5.7 X10*3/uL (4.8-10.8)
[2020-11-16 14:37] LABS: Glucose Urine UA NEG (NEG); Leukocyte Esterase Urine NEG (NEG); Nitrite Urine NEG (NEG); Urine Blood NEG (NEG); Urine Ketones NEG (NEG); Urine Protein NEG (NEG-TRACE)
[2020-11-16 14:42] LABS: Appearance Urine CLEAR; Color Urine YELLOW
== END 2020-11-16 11:23 | disposition home or self-care (01) ==
LOC: HO.10HDL 11:22
PROVIDERS: PCP Internal Medicine; Visit Provider Internal Medicine
DX: R53.83 Other fatigue (principal); I48.91 Unspecified atrial fibrillation; R30.0 Dysuria
CPT/HCPCS: 36415; 80053; 81003; 85025; 86140; 87086

== ENCOUNTER 2020-12-11 09:20 | Outpatient (REF) | payer MEDICARE, SELFPAY ==
[2020-12-13 18:51] LABS: HIV RNA PCR Qn Copies <20 DETECTED copies/mL (NOT DETECTED); HIV RNA PCR Qn Log Copies <1.30 DETECTED (NOT DETECTED)
== END 2020-12-11 09:21 | disposition home or self-care (01) ==
LOC: HO.LAB 09:20
PROVIDERS: PCP Internal Medicine; Visit Provider Internal Medicine Infectious Disease
DX: B20 Human immunodeficiency virus [HIV] disease (principal)
CPT/HCPCS: 36415; 87536

== ENCOUNTER → 2021-01-23 09:29 | Outpatient (REF) | payer MEDICARE, SELFPAY ==
--- NOTE | 2021-01-23 09:32 | CA_ITS ---
Transthoracic Echocardiogram Patient (Last, First, Middle): Toney Martinez, Gender: Male Date of : 1945 Age: 75 Procedure Date: 01/23/2021 Procedure Type: Transthoracic Echocardiogram Location: OP Height: 177.8 cm Weight: 96.16 kg BSA: 2.14 m2 Heart Rate: bpm BP: 118 / 60 mmHg Playground Supervisor: Referring MD: Louie Bustamante MD Symptoms: I48.0 - Paroxysmal atrial fibrillation Study Quality: Fair ECG Rhythm: Sinus Conclusions: - The left ventricular systolic function is normal. The calculated ejection fraction is 63% by biplane method. - There is mild calcification of the aortic valve. - No obvious valvular pathology seen on this study. Findings Left Ventricle Normal left ventricular cavity size. There is mildly increased left ventricular wall thickness. The left ventricular systolic function is normal. The calculated ejection fraction is 63% by biplane method. There is no evidence of regional wall motion abnormalities. Diastolic function is normal for age. Right Ventricle Normal right ventricular cavity size and systolic function. Atria Both atria are normal in size. Aortic Valve There is a normal trileaflet aortic valve. There is mild calcification of the aortic valve. There is no aortic valve stenosis. There is no aortic valve regurgitation. Mitral Valve The mitral valve appears normal. There is trace mitral valve regurgitation. There is no mitral valve stenosis. Pulmonic Valve The pulmonic valve was not well visualized. Tricuspid Valve Normal tricuspid valve structure. There is trace tricuspid valve regurgitation. The pulmonary artery systolic pressure is normal. Great Vessels The aortic annulus, sinuses of valsalva, and asc aorta are normal in size. Venous The inferior vena cava is normal in size and collapses greater than 50% with inspiration. Pericardium/Pleural There is no evidence of pericardial effusion. Prior Study Comparison No significant change compared to prior study dated: 03/09/2019. Recommendations, Care & Conclusions No obvious valvular pathology seen on this study. Measurements 2D Linear Measurements IVSd: 1.24 0.6-0.9/0.6-1.0 cm LVIDd: 4.33 3.9-5.3/4.2-5.9 cm LVIDd Index: 2.02 2.4-3.2/2.2-3.1 cm/m2 LVIDs: 2.69 2.0-3.6 cm LVPWd: 1.23 0.7-1.1 cm Ao Root: 4.00 2.1-3.5 cm LA Diam: 3.70 2.7-3.8/3.0-4.0 cm LAIDs Index: 1.73 1.5-2.3 cm/m2 LV Mass: 242.58 67-162/88-224 g LV Mass Index: 113.35 43-95/49-115 g/m2 LVOT Diam: 2.20 3.0+(-)1.3 cm 2D Systolic Function EF 4C: 58.80 >55% EF 2C: 67.90 >55% EF BiP: 62.90 >55% Mitral Valve MV Pk E: 0.75 MV PK A: 0.40 MV Decel Time: 170.00 E/A: 1.90 E'Lateral: 9.36 E'Medial: 9.68 E/E' Med: 7.80 E/E' Lat: 8.10 PHT: 50.00 MVA PHT: 4.40 Decel Sabine: 4.44 Aortic Valve AoV Pk Eric: 0.96 AoV Mn Eric: 0.63 AoV VTI: 0.26 AoV Pk Grad: 4.00 Aov Mn Grad: 2.00 KATELIN Cont.VTI: 2.89 LVOT LVOT Pk Eric: 0.76 LVOT Mn Eric: 0.46 LVOT VTI: 0.20 LVOT Pk Grad: 2.00 LVOT Mn Grad: 1.00 LVOT Diam: 2.20 LVOT Area: 3.80 Diastolic Function MV Pk E: 0.75 MV Pk A: 0.40 E/A: 1.90 E'Medial: 9.68 E/E' Med: 7.80 E' Laterial: 9.36 E/E' Lat: 8.10 Right Ventricle TAPSE (mm): 28.00 Tricuspid Valve TR Pk Eric: 1.66 TR Pk Grad: 11.00 Great Vessels Aorta Ao Root-2D: 4.00 2.0-3.7 cm Ao Asc: 3.60 2.1-3.4 cm Pulmonary Valve PV Pk Eric: 0.79 Peak PV Grad: 2.00 Updated in Other Vendor System with Status of Final Brendan Limon MD electronically signed on 01/24/2021 12:07:40 PM with status of Final
== END ==
LOC: HO.CARD 09:29
PROVIDERS: PCP Internal Medicine; Visit Provider Internal Medicine Cardiovascular Disease
DX: I48.0 Paroxysmal atrial fibrillation (principal)
CPT/HCPCS: 93306

== ENCOUNTER 2021-02-05 12:08 | Outpatient (REF) | payer MEDICARE, SELFPAY ==
[2021-02-07 14:17] LABS: HIV RNA PCR Qn Copies <20 DETECTED copies/mL (NOT DETECTED); HIV RNA PCR Qn Log Copies <1.30 DETECTED (NOT DETECTED)
== END 2021-02-05 12:09 | disposition home or self-care (01) ==
LOC: HO.LAB 12:08
PROVIDERS: PCP Internal Medicine; Visit Provider Internal Medicine Infectious Disease
DX: B20 Human immunodeficiency virus [HIV] disease (principal)
CPT/HCPCS: 36415; 87536

== ENCOUNTER → 2021-02-14 10:19 | Outpatient (BNVA) | payer MEDICARE, SELFPAY | PROVIDERS: PCP Internal Medicine; Visit Provider Urology | DX: N40.1 Benign prostatic hyperplasia with lower urinary tract symptoms (principal); N13.8 Other obstructive and reflux uropathy | CPT/HCPCS: 51798; 99212 ==

== ENCOUNTER → 2021-04-30 10:33 | Outpatient (BNVA) | payer MEDICARE, SELFPAY | PROVIDERS: PCP Internal Medicine; Referring Provider Internal Medicine; Visit Provider Internal Medicine Cardiovascular Disease | DX: I48.0 Paroxysmal atrial fibrillation (principal); I10 Essential (primary) hypertension | CPT/HCPCS: 93005; 99212 ==

== ENCOUNTER 2021-04-30 11:16 | Outpatient (REF) | payer MEDICARE, SELFPAY ==
[2021-04-30 11:45] LABS: MANUAL DIFF FLAG NO
[2021-04-30 12:39] LABS: Basophils Absolute Auto 0.1 X10*3/uL (0.0-0.2); Basophils Percent Auto 1.1 % (0-2); Eosinophils Absolute Auto 0.1 X10*3/uL (0.0-0.4); Eosinophils Percent Auto 2.6 % (0-4); Hematocrit 39.9 % (42.0-52.0); Hemoglobin 13.6 g/dl (14.0-18.0); Imm Gran Abs Auto 0.02 X10*3/uL (0.00-0.03); Imm Gran Pct Auto 0.4 % (0.0-0.4); Lymphocytes Absolute Auto 1.7 X10*3/uL (1.2-4.9); Lymphocytes Percent Auto 32.4 % (20-40); Mean Corpuscular HGB Conc 34.1 g/dl (31.0-36.0); Mean Corpuscular Hemoglobin 30.6 pg (27.0-33.0); Mean Corpuscular Volume 89.9 fL (80.0-98.0); Mean Platelet Volume 10.2 fL (9.4-12.4); Monocytes Absolute Auto 0.4 X10*3/uL (0.1-1.2); Monocytes Percent Auto 7.5 % (2-11); Platelet Count 206 X10*3/uL (160-400); Red Blood Count 4.44 X10*6/uL (4.60-5.80); Red Cell Distribution Width 12.4 % (11.0-16.0); White Blood Count 5.3 X10*3/uL (4.8-10.8)
[2021-04-30 12:58] LABS: Alanine Aminotransferase 49 U/L (0-40); Albumin Level 4.1 g/dL (3.5-5.0); Alkaline Phosphatase 76 U/L (39-117); Anion Gap 12 (12-20); Aspartate Amino Transferase 43 U/L (5-37); Bilirubin Total 0.5 mg/dL (0.0-1.0); Blood Urea Nitrogen 15 mg/dL (9-16); Calcium 9.4 mg/dL (8.4-10.2); Carbon Dioxide 24 mmol/L (22-29); Chloride 109 mmol/L (96-108); Estimated Glomerular Filt Rate > 60; Glucose Random 138 mg/dL (60-115); Potassium 4.7 mmol/L (3.3-5.1); Sodium 140 mmol/L (135-145); Total Protein 6.7 g/dL (6.5-8.0)
[2021-04-30 13:47] LABS: Syphilis Screen Nonreactive (Nonreactive)
[2021-05-01 12:12] LABS: Absolute CD4 Count 669 cells/uL (490-1740); Absolute CD8 Count 617 cells/uL (180-1170); Absolute Lymphocytes 1649 cells/uL (850-3900); CD4 CD8 Ratio 1.08 (0.86-5.00); Percent CD4 Cells 41 % (30-61); Percent CD8 Cells 37 % (12-42)
[2021-05-04 17:41] LABS: Chlamydia Pneumoniae IgA <1:16 titer (<1:16); Chlamydia Pneumoniae IgG <1:64 titer (<1:64); Chlamydia Pneumoniae IgM <1:10 titer (<1:10); Chlamydia Psittaci IgA <1:16 titer (<1:16); Chlamydia Psittaci IgG <1:64 titer (<1:64); Chlamydia Psittaci IgM <1:10 titer (<1:10); Chlamydia Trachomatis IgA <1:16 titer (<1:16); Chlamydia Trachomatis IgG <1:64 titer (<1:64); Chlamydia Trachomatis IgM <1:10 titer (<1:10)
[2021-05-07 18:17] LABS: HIV RNA PCR Qn Copies 69 Copies/mL; HIV RNA PCR Qn Log Copies 1.84 Log cps/mL
== END 2021-04-30 11:17 | disposition home or self-care (01) ==
LOC: HO.LAB 11:16
PROVIDERS: Absent Provider Internal Medicine Cardiovascular Disease; PCP Internal Medicine; Visit Provider Internal Medicine Infectious Disease
DX: B20 Human immunodeficiency virus [HIV] disease (principal)
CPT/HCPCS: 36415; 80053; 85025; 86360; 86631; 86632; 86780; 87536; 93005; 99212

== ENCOUNTER 2021-05-15 09:54 | Outpatient (REF) | payer MEDICARE, SELFPAY ==
--- NOTE | ~2021-05-15 | US_ITS ---
EXAMINATION: US EXTRACRANIAL CAROTID DUPLEX, BILATERAL CLINICAL INFORMATION: This is a 76-year-old male with occlusion/stenosis of the bilateral carotid arteries. COMPARISON: Comparison is made to a previous carotid duplex ultrasound dated June 01, 2020 which demonstrated 0-49% right internal carotid artery stenosis and 0-49% left internal carotid artery stenosis. TECHNIQUE: Real-time ultrasound and Doppler techniques (integrating B-mode 2-D vascular images, Doppler spectral analysis and color-flow Doppler imaging) were utilized to interrogate the extracranial carotid arteries, the vertebral arteries and proximal subclavian arteries bilaterally. The degree of stenosis is determined by criteria similar to NASCET. FINDINGS: Right Side: 1. There is minimal atherosclerotic plaque seen in the bifurcation/proximal ICA region. 2. The common carotid artery PSV proximally is 89 cm/s and distally 86 cm/s. 3. The proximal internal carotid artery velocities are 114 cm/s systolic and 15 cm/s diastolic. 4. The proximal external carotid artery PSV is 104 cm/s. There is no hemodynamically significant stenosis in the external carotid artery. 5. The vertebral artery shows antegrade flow. 6. The subclavian artery waveforms are normal. Left Side: 1. There is moderate atherosclerotic plaque seen in the bifurcation/proximal ICA region. 2. The common carotid artery PSV proximally is 106 cm/s and distally 89 cm/s. 3. The proximal internal carotid artery velocities are 133 cm/s systolic and 45 cm/s diastolic. Following a carotid endarterectomy the criteria for a 0-49% stenosis is frequently up to 150 cm/s rather than 125 cm/s. 4. The proximal external carotid artery PSV is 236 cm/s. There is a hemodynamically significant stenosis in the external carotid artery. This was present previously. 5. The vertebral artery shows antegrade flow. 6. The subclavian artery waveforms are normal. US/US carotid duplex BI IMPRESSION: 1. RIGHT: Minimal, non-hemodynamically significant stenosis of the proximal right internal carotid artery corresponding to a 0-49% stenosis by velocity criteria. 2. LEFT: Minimal, non-hemodynamically significant stenosis of the proximal left internal carotid artery corresponding to a 0-49% stenosis by velocity criteria. Following left carotid endarterectomy this velocity is generally considered to measure 0-49% stenosis. 3. Therefore, there is no change in the category severity of disease when compared to the previous study dated June 01, 2020
== END 2021-05-15 09:55 | disposition home or self-care (01) ==
LOC: HO.US 09:54
PROVIDERS: PCP Internal Medicine; Visit Provider Surgery Vascular Surgery
DX: I65.23 Occlusion and stenosis of bilateral carotid arteries (principal)
CPT/HCPCS: 93880

== ENCOUNTER 2021-05-24 11:35 | Outpatient (REF) | payer MEDICARE, SELFPAY ==
[2021-05-24 13:59] LABS: MANUAL DIFF FLAG NO
[2021-05-24 14:06] LABS: Basophils Absolute Auto 0.1 X10*3/uL (0.0-0.2); Basophils Percent Auto 1.2 % (0-2); Eosinophils Absolute Auto 0.3 X10*3/uL (0.0-0.4); Eosinophils Percent Auto 4.7 % (0-4); Hematocrit 39.4 % (42.0-52.0); Hemoglobin 13.4 g/dl (14.0-18.0); Imm Gran Abs Auto 0.01 X10*3/uL (0.00-0.03); Imm Gran Pct Auto 0.2 % (0.0-0.4); Lymphocytes Absolute Auto 2.2 X10*3/uL (1.2-4.9); Mean Corpuscular Hemoglobin 30.7 pg (27.0-33.0); Mean Corpuscular Volume 90.4 fL (80.0-98.0); Monocytes Absolute Auto 0.5 X10*3/uL (0.1-1.2); Monocytes Percent Auto 7.9 % (2-11); Neutrophils Absolute Auto 2.8 x10*3/uL (2.0-8.3); Platelet Count 218 X10*3/uL (160-400); Red Blood Count 4.36 X10*6/uL (4.60-5.80); Red Cell Distribution Width 12.9 % (11.0-16.0); White Blood Count 5.8 X10*3/uL (4.8-10.8)
[2021-05-24 14:17] LABS: Estimated Average Glucose 151 mg/dL; Hemoglobin A1c % 6.9 %
[2021-05-24 14:23] LABS: Alanine Aminotransferase 39 U/L (0-40); Albumin Level 4.1 g/dL (3.5-5.0); Alkaline Phosphatase 73 U/L (39-117); Anion Gap 11 (12-20); Aspartate Amino Transferase 33 U/L (5-37); Bilirubin Total 0.5 mg/dL (0.0-1.0); Blood Urea Nitrogen 14 mg/dL (9-16); Calcium 9.1 mg/dL (8.4-10.2); Carbon Dioxide 27 mmol/L (22-29); Chloride 107 mmol/L (96-108); Estimated Glomerular Filt Rate > 60; Glucose Random 117 mg/dL (60-115); Potassium 4.7 mmol/L (3.3-5.1); Sodium 140 mmol/L (135-145); Total Protein 6.3 g/dL (6.5-8.0)
== END 2021-05-24 11:36 | disposition home or self-care (01) ==
LOC: HO.10HDL 11:35
PROVIDERS: Visit Provider Internal Medicine
DX: I48.0 Paroxysmal atrial fibrillation (principal); I25.10 Atherosclerotic heart disease of native coronary artery without angina pectoris; I10 Essential (primary) hypertension; R73.03 Prediabetes
CPT/HCPCS: 36415; 80053; 83036; 85025

== ENCOUNTER → 2021-05-29 08:51 | Outpatient (BNVA) | payer MEDICARE, SELFPAY | PROVIDERS: PCP Internal Medicine; Visit Provider Surgery Vascular Surgery | DX: I65.23 Occlusion and stenosis of bilateral carotid arteries (principal); Z79.01 Long term (current) use of anticoagulants; Z79.899 Other long term (current) drug therapy | CPT/HCPCS: 99212 ==

== ENCOUNTER → 2021-07-30 09:48 | Outpatient (BNVA) | payer MEDICARE, SELFPAY | PROVIDERS: PCP Internal Medicine; Referring Provider Internal Medicine; Visit Provider Internal Medicine Cardiovascular Disease | DX: R94.31 Abnormal electrocardiogram [ECG] [EKG] (principal) | CPT/HCPCS: 93005 ==

== ENCOUNTER 2021-09-27 15:02 | Outpatient (REF) | payer MEDICARE, SELFPAY ==
[2021-09-27 15:39] LABS: MANUAL DIFF FLAG NO
[2021-09-27 15:53] LABS: Basophils Absolute Auto 0.1 X10*3/uL (0.0-0.2); Basophils Percent Auto 1.3 % (0-2); Eosinophils Absolute Auto 0.2 X10*3/uL (0.0-0.4); Hemoglobin 13.9 g/dl (14.0-18.0); Imm Gran Abs Auto 0.01 X10*3/uL (0.00-0.03); Imm Gran Pct Auto 0.2 % (0.0-0.4); Lymphocytes Absolute Auto 2.2 X10*3/uL (1.2-4.9); Lymphocytes Percent Auto 42.2 % (20-40); Mean Corpuscular HGB Conc 34.8 g/dl (31.0-36.0); Mean Corpuscular Hemoglobin 31.8 pg (27.0-33.0); Mean Corpuscular Volume 91.5 fL (80.0-98.0); Mean Platelet Volume 9.7 fL (9.4-12.4); Monocytes Absolute Auto 0.5 X10*3/uL (0.1-1.2); Neutrophils Absolute Auto 2.3 x10*3/uL (2.0-8.3); Neutrophils Percent Auto 43.3 % (45-73); Platelet Count 211 X10*3/uL (160-400); Red Blood Count 4.37 X10*6/uL (4.60-5.80); Red Cell Distribution Width 12.1 % (11.0-16.0); White Blood Count 5.2 X10*3/uL (4.8-10.8)
[2021-09-27 16:12] LABS: Estimated Average Glucose 143 mg/dL; Hemoglobin A1c % 6.6 %
[2021-09-27 16:15] LABS: Alanine Aminotransferase 37 U/L (0-40); Albumin Level 4.2 g/dL (3.5-5.0); Alkaline Phosphatase 74 U/L (39-117); Anion Gap 12 (12-20); Aspartate Amino Transferase 31 U/L (5-37); Bilirubin Total 0.4 mg/dL (0.0-1.0); Blood Urea Nitrogen 17 mg/dL (9-16); Calcium 9.3 mg/dL (8.4-10.2); Carbon Dioxide 26 mmol/L (22-29); Chloride 106 mmol/L (96-108); Estimated Glomerular Filt Rate > 60; Glucose Random 92 mg/dL (60-115); Potassium 4.7 mmol/L (3.3-5.1); Sodium 139 mmol/L (135-145); Total Protein 6.7 g/dL (6.5-8.0)
[2021-09-28 08:13] LABS: Syphilis Screen Nonreactive (Nonreactive)
[2021-09-29 15:01] LABS: HIV RNA PCR Qn Copies 23 copies/mL (NOT DETECTED); HIV RNA PCR Qn Log Copies 1.36 (NOT DETECTED)
[2021-10-01 15:16] LABS: Absolute CD3 Count 1643 cells/uL (840-3060); Absolute CD4 Count 741 cells/uL (490-1740); Absolute CD8 Count 920 cells/uL (180-1170); Absolute Lymphocytes 2221 cells/uL (850-3900); CD4 CD8 Ratio 0.81 (0.86-5.00); Percent CD3 Cells 74 % (57-85); Percent CD4 Cells 33 % (30-61); Percent CD8 Cells 41 % (12-42)
== END 2021-09-27 15:03 | disposition home or self-care (01) ==
LOC: HO.LAB 15:02
PROVIDERS: Absent Provider Internal Medicine Infectious Disease; PCP Internal Medicine; Visit Provider Internal Medicine
DX: B20 Human immunodeficiency virus [HIV] disease (principal); E11.65 Type 2 diabetes mellitus with hyperglycemia; I25.10 Atherosclerotic heart disease of native coronary artery without angina pectoris; I48.0 Paroxysmal atrial fibrillation
CPT/HCPCS: 80053; 83036; 85025; 86359; 86360; 86780; 87536

== ENCOUNTER 2021-09-28 07:24 | Outpatient (REF) | payer MEDICARE, SELFPAY ==
[2021-09-28 08:05] LABS: Creatinine Urine 83.53 mg/dL; Microalbumin Urine < 5.0 mg/L
[2021-09-28 11:01] LABS: CT PCR NOT DETECTED (Not Detect.); NG PCR NOT DETECTED (Not Detect.)
== END 2021-09-28 07:25 | disposition home or self-care (01) ==
LOC: HO.LNP 07:24
PROVIDERS: Visit Provider Internal Medicine
DX: Z11.3 Encounter for screening for infections with a predominantly sexual mode of transmission (principal); I48.0 Paroxysmal atrial fibrillation; I25.10 Atherosclerotic heart disease of native coronary artery without angina pectoris; B20 Human immunodeficiency virus [HIV] disease; E11.65 Type 2 diabetes mellitus with hyperglycemia
CPT/HCPCS: 82043; 87491; 87591

== ENCOUNTER → 2021-11-05 10:56 | Outpatient (BNVA) | payer MEDICARE, SELFPAY | PROVIDERS: PCP Internal Medicine; Referring Provider Internal Medicine; Visit Provider Internal Medicine Cardiovascular Disease | DX: I48.0 Paroxysmal atrial fibrillation (principal); I10 Essential (primary) hypertension | CPT/HCPCS: 93005; 99212 ==

== ENCOUNTER 2022-01-16 11:59 | Day surgery (SDC) | payer MEDICARE, SELFPAY ==
[2022-01-11 12:18] VITALS: BMI 30.8
--- NOTE | 2022-01-15 11:56 | P.CONAN_ITS ---
Documented by User: Anisha Magallon NP 01/15/22 11:58 HPI - Anesthesia Eval Consult details Narrative: 76yo M for Colonoscopy Xarelto for afib s/p carotid endarterectomy 2018 [facility] Active Problems Active Problems: All Active Problems (Updated 01/11/22 @ 12:33 by Ana Maria Ramirez, DISHA) BPH w urinary obs/LUTS (Acute) Paroxysmal atrial fibrillation (Acute) HTN (hypertension) (Acute) Bilateral carotid artery disease (Acute) Past Medical History Medical History Bilateral carotid artery disease History of cardioversion History of seizure HIV positive HTN (hypertension) Paroxysmal atrial fibrillation Persistent atrial fibrillation Family History Family History Father Stroke Mother No problems noted. Surgical History Surgical History History of carotid endarterectomy (08/17/18) History of surgical removal of ganglion cyst Hx of cholecystectomy Hx of colonoscopy Hx of tonsillectomy Social History Social History Are you a primary child care nurse to a significant other at home: No Do you presently have visiting nurse or other home services: No Patient Tobacco Use Status: Former Tobacco user Quit Date: Tobacco use type: Cigarette Second Hand Smoke Exposure: No Substance Use Frequency: Occasionally Have you been hit, kicked, punched, or otherwise hurt by someone within the past year? If so, by whom?: No Are you DNR?: No Advance Directives: Yes Advance Directives Information Provided: No Advance Directives on File: Yes Advance Directives Date on File: 01/26/20 Recently lost weight without trying: No Nutrition Risks: No Nutritional Risk Poor oral hygiene: No Meds Allergies Allergy/AdvReac Type Severity Reaction Status Date / Time abacavir [From ZIAGEN] Allergy Intermediate MOVES FAT Verified 01/11/22 12:08 IN BODY nevirapine [From Viramune] Allergy Intermediate HIGH Verified 01/11/22 12:08 TEMP-WILLA JOHNSONS SYNDROME Home Medications Medication Instructions Recorded Confirmed Last Taken Type albuterol sulfate 90 mcg/actuation 2 puff inhalation Q4-6H PRN 03/28/20 01/11/22 Unknown History aerosol inhaler Shortness Of Breath Or Wheezing alprazolam 0.25 mg tablet 0.25 mg PO BID PRN Anxiety 03/28/20 01/11/22 Unknown History atorvastatin 40 mg tablet 40 mg PO DAILY 03/28/20 01/11/22 Unknown History cholecalciferol (vitamin D3) 50 50 mcg PO DAILY 03/28/20 01/11/22 03/29/20 History mcg (2,000 unit) capsule efavirenz 600 mg tablet 600 mg PO BEDTIME 03/28/20 01/11/22 04/13/20 History emtricitabine 200 mg-tenofovir 1 tab PO DAILY 03/28/20 01/11/22 03/29/20 History alafenamide fumarate 25 mg tablet gabapentin 300 mg capsule 300 mg PO BID 03/28/20 01/11/22 01/16/22 History ipratropium bromide 21 mcg (0.03 spray intranasal 03/28/20 04/30/21 Unknown History %) nasal spray loperamide 2 mg capsule 2 mg PO Q6H PRN Diarrhea 03/28/20 01/11/22 Unknown History multivitamin,wh-kepj-tckihwuk 1 tab PO DAILY 03/28/20 11/05/21 04/13/20 History (Complete Multivitamin tablet) omega 9-cbo-mlg-fish oil 100 1 cap PO DAILY 03/28/20 01/11/22 04/13/20 History mg-160 mg-1,000 mg capsule (Fish Oil) raltegravir 400 mg tablet 400 mg PO BID 03/28/20 01/11/22 01/16/22 History rivaroxaban 20 mg tablet 20 mg PO DAILY 03/28/20 01/11/22 Unknown History vitamin B complex (B 1 tab PO DAILY 03/28/20 01/11/22 04/13/20 History Complex-Vitamin B12 tablet) ergocalciferol (vitamin D2) 1,000 2,000 unit PO DAILY 04/13/20 11/05/21 04/13/20 History unit capsule hyoscyamine sulfate 0.125 mg tablet 1 tab PO TID PRN Gastrointestinal 01/11/22 01/11/22 Unknown History Spasms Or Cramping omeprazole 20 mg capsule,delayed 20 mg PO BID 01/11/22 01/11/22 01/16/22 History release Exam Exam Date and Time: January 15, 2022 1156 Height,Weight and Vital Signs: Height 5 ft 10 in Weight 97.522 kg Pertinent Lab Results Pertinent Lab Results: Laboratory Tests 09/27/21 09/27/21 15:36 15:36 WBC 5.2 Hgb 13.9 L Hct 40.0 L Plt Count 211 Sodium 139 Potassium 4.7 Chloride 106 Carbon Dioxide 26 BUN 17 H Creatinine 1.05 Narrative Narrative: EKG 10/2021 normal sinus rhythm normal EKG at 75 beats per minute US carotid duplex BI 04/2021 IMPRESSION: 1. RIGHT: Minimal, non-hemodynamically significant stenosis of the proximal right internal carotid artery corresponding to a 0-49% stenosis by velocity criteria. ? 2. LEFT: Minimal, non-hemodynamically significant stenosis of the proximal left internal carotid artery corresponding to a 0-49% stenosis by velocity criteria. Following left carotid endarterectomy this velocity is generally considered to measure 0-49% stenosis. ? 3. Therefore, there is no change in the category severity of disease when compared to the previous study dated June 01, 2020 Assessment and Plan Assessment Anesthesia Assessment: Chart Reviewed Documented by User: Sarah Urbina MD 01/16/22 13:20 [facility] Past Medical History Medical History Bilateral carotid artery disease History of cardioversion History of seizure HIV positive HTN (hypertension) Paroxysmal atrial fibrillation Persistent atrial fibrillation Family History Family History Father Stroke Mother No problems noted. Surgical History Surgical History History of carotid endarterectomy (08/17/18) History of surgical removal of ganglion cyst Hx of cholecystectomy Hx of colonoscopy Hx of tonsillectomy History of Problems with Anesthesia: No Social History Social History Are you a primary child care nurse to a significant other at home: No Do you presently have visiting nurse or other home services: No Patient Tobacco Use Status: Former Tobacco user Quit Date: Tobacco use type: Cigarette Second Hand Smoke Exposure: No Substance Use Frequency: Occasionally Have you been hit, kicked, punched, or otherwise hurt by someone within the past year? If so, by whom?: No Are you DNR?: No Advance Directives: Yes Advance Directives Information Provided: No Advance Directives on File: Yes Advance Directives Date on File: 01/26/20 Recently lost weight without trying: No Nutrition Risks: No Nutritional Risk Poor oral hygiene: No Meds Allergies Allergy/AdvReac Type Severity Reaction Status Date / Time abacavir [From ZIAGEN] Allergy Intermediate MOVES FAT Verified 01/11/22 12:08 IN BODY nevirapine [From Viramune] Allergy Intermediate HIGH Verified 01/11/22 12:08 TEMP-WILLA JOHNSONS SYNDROME Home Medications Medication Instructions Recorded Confirmed Last Taken Type albuterol sulfate 90 mcg/actuation 2 puff inhalation Q4-6H PRN 03/28/20 01/11/22 Unknown History aerosol inhaler Shortness Of Breath Or Wheezing alprazolam 0.25 mg tablet 0.25 mg PO BID PRN Anxiety 03/28/20 01/11/22 Unknown History atorvastatin 40 mg tablet 40 mg PO DAILY 03/28/20 01/11/22 Unknown History cholecalciferol (vitamin D3) 50 50 mcg PO DAILY 03/28/20 01/11/22 03/29/20 History mcg (2,000 unit) capsule efavirenz 600 mg tablet 600 mg PO BEDTIME 03/28/20 01/11/22 04/13/20 History emtricitabine 200 mg-tenofovir 1 tab PO DAILY 03/28/20 01/11/22 03/29/20 History alafenamide fumarate 25 mg tablet gabapentin 300 mg capsule 300 mg PO BID 03/28/20 01/11/22 01/16/22 History ipratropium bromide 21 mcg (0.03 spray intranasal 03/28/20 04/30/21 Unknown History %) nasal spray loperamide 2 mg capsule 2 mg PO Q6H PRN Diarrhea 03/28/20 01/11/22 Unknown History multivitamin,fn-bdmb-bsmxdbmk 1 tab PO DAILY 03/28/20 11/05/21 04/13/20 History (Complete Multivitamin tablet) omega 9-abw-rmi-fish oil 100 1 cap PO DAILY 03/28/20 01/11/22 04/13/20 History mg-160 mg-1,000 mg capsule (Fish Oil) raltegravir 400 mg tablet 400 mg PO BID 03/28/20 01/11/22 01/16/22 History rivaroxaban 20 mg tablet 20 mg PO DAILY 03/28/20 01/11/22 Unknown History vitamin B complex (B 1 tab PO DAILY 03/28/20 01/11/22 04/13/20 History Complex-Vitamin B12 tablet) ergocalciferol (vitamin D2) 1,000 2,000 unit PO DAILY 04/13/20 11/05/21 04/13/20 History unit capsule hyoscyamine sulfate 0.125 mg tablet 1 tab PO TID PRN Gastrointestinal 01/11/22 01/11/22 Unknown History Spasms Or Cramping omeprazole 20 mg capsule,delayed 20 mg PO BID 01/11/22 01/11/22 01/16/22 History release Exam Airway Mallampati Class: III TM Dist: >3cm Neck ROM: Full Loose/Missing/Broken Teeth: No Heart: RRR Lungs: CTA Assessment and Plan Assessment Anesthesia Assessment: Anesthesia Plan Discussed Final Anesthetic Review History of Problems with Anesthesia: No NPO: Yes ASA Class: II Final Preanesthetic Review: Meds/Allgs Chart Reviewed, Consent Obtained/Reviewed and Anes Risks/Benef Reviewed Patient Risk: Low Procedure Risk: Low Anesthetic Plan Anesthetic Plan: MAC: Disposition: Standard PACU
[2022-01-16 12:24] VITALS: BP 176/88; PULSE 73; RESP 16; TEMP 36.2; O2SAT 98; BMI 30.8
[2022-01-16] MEDS: Lactated Ringers 1,000 ML 100 ML IVCONT (12:38)
[2022-01-16 13:56] VITALS: BP 91/45; PULSE 67; RESP 18; TEMP 37.1; O2SAT 96
--- NOTE | 2022-01-16 13:56 | P.BOP_ITS ---
Brief Operative Note Date of Service: 01/16/22 Pre-op diagnosis: screening Post-op diagnosis: same Procedure: colonoscopy Surgeon: Mike Aquino Anesthesia: MAC Was an Automatic Spooler Operator used for this Procedure?: No Estimated blood loss (mL): 2 Pathology: other Condition: stable Disposition: PACU
[2022-01-16 14:11] VITALS: BP 91/45; PULSE 65; RESP 18; O2SAT 98
[2022-01-16 14:26] VITALS: BP 142/73; PULSE 67; RESP 20; TEMP 36.4; O2SAT 98
--- NOTE | 2022-01-17 00:11 | OP_ITS ---
SURGEON: Mike Aquino MD INDICATIONS: Colon cancer screening and prior history of adenomatous colon polyps. PREOPERATIVE DIAGNOSIS: POSTOPERATIVE DIAGNOSIS: PROCEDURE PERFORMED: Colonoscopy to the terminal ileum with biopsy and snare polypectomy. ESTIMATED BLOOD LOSS: COMPLICATIONS: ANESTHESIA: ASSISTANTS: SPECIMENS: MEDICATIONS: Monitored anesthesia care. DESCRIPTION OF PROCEDURE: The procedure was performed on 01/16/2022. History and physical was performed. The risks and benefits of the procedure were explained to the patient. Informed consent was obtained. The patient was placed in the left lateral decubitus position. A digital rectal exam was performed and was found to be normal. The Olympus pediatric video colonoscope was introduced into the rectum and advanced to the cecum without difficulty. The cecum was identified by transillumination, palpation, and identification of ileocecal valve. Examination was performed and the scope was removed. He tolerated the procedure well and was transferred to recovery area in stable condition. FINDINGS: The terminal ileum was normal. The visualized colonic mucosa was normal. There was some liquid stool coating the mucosa which was washed and suctioned as best possible. This limited the sensitivity examination for detection of small polyps. Four polyps were identified and removed with a combination of a biopsy forceps and snare. All were less than 10 mm. Two were located in the cecum, 1 in the right colon and 1 at 20 cm. There was moderate sigmoid diverticulosis. Retroflexed examination was normal. IMPRESSION: Colon polyps. RECOMMENDATION: Follow up the biopsy results. MD AARTI Mancera/DIANAL / [id number]
== END 2022-01-16 14:47 | disposition home or self-care (01) ==
PROVIDERS: PCP Internal Medicine; Visit Provider Internal Medicine Gastroenterology
PROC: 0DJD8ZZ Inspection of Lower Intestinal Tract, Via Natural or Artificial Opening Endoscopic (ICD-10-PCS; CPT 45378; principal; 2022-01-16 13:00)
DX: Z12.11 Encounter for screening for malignant neoplasm of colon (principal); Z86.010 Personal history of colon polyps; Z80.0 Family history of malignant neoplasm of digestive organs; D12.0 Benign neoplasm of cecum; D12.2 Benign neoplasm of ascending colon; D12.5 Benign neoplasm of sigmoid colon; K57.30 Diverticulosis of large intestine without perforation or abscess without bleeding; K58.0 Irritable bowel syndrome with diarrhea; G40.909 Epilepsy, unspecified, not intractable, without status epilepticus; N40.0 Benign prostatic hyperplasia without lower urinary tract symptoms; E78.00 Pure hypercholesterolemia, unspecified; I48.0 Paroxysmal atrial fibrillation; G62.9 Polyneuropathy, unspecified; Z21 Asymptomatic human immunodeficiency virus [HIV] infection status; Z90.49 Acquired absence of other specified parts of digestive tract; Z79.899 Other long term (current) drug therapy; Z88.8 Allergy status to other drugs, medicaments and biological substances; Z79.01 Long term (current) use of anticoagulants; Z87.891 Personal history of nicotine dependence
CPT/HCPCS: 45385; 45380; 88305

== ENCOUNTER → 2022-02-04 09:49 | Outpatient (BNVA) | payer MEDICARE, SELFPAY | PROVIDERS: PCP Internal Medicine; Referring Provider Internal Medicine; Visit Provider Internal Medicine Cardiovascular Disease | DX: Z79.899 Other long term (current) drug therapy (principal) | CPT/HCPCS: 93005 ==

== ENCOUNTER → 2022-02-14 10:51 | Outpatient (BNVA) | payer MEDICARE, SELFPAY | PROVIDERS: PCP Internal Medicine; Visit Provider Urology | DX: N32.81 Overactive bladder (principal); N40.1 Benign prostatic hyperplasia with lower urinary tract symptoms; N13.8 Other obstructive and reflux uropathy | CPT/HCPCS: 51798; 99212 ==

== ENCOUNTER 2022-03-04 09:27 | Outpatient (REF) | payer MEDICARE, SELFPAY ==
[2022-03-04 10:01] LABS: MANUAL DIFF FLAG NO
[2022-03-04 10:48] LABS: Appearance Urine Hazy; Color Urine Yellow; Glucose Urine UA Negative (Negative); Leukocyte Esterase Urine Moderate (2+) (Negative); Nitrite Urine Negative (Negative); PH 6.5 (5.0-9.0); UMIC TRIGGER UA YES; Urine Blood Small (1+) (Negative); Urine Ketones Negative (Negative); Urine Protein Negative (Neg-Trace)
[2022-03-04 10:56] LABS: Basophils Absolute Auto 0.1 X10*3/uL (0.0-0.2); Basophils Percent Auto 1.3 % (0-2); Eosinophils Absolute Auto 0.1 X10*3/uL (0.0-0.4); Eosinophils Percent Auto 2.1 % (0-4); Hematocrit 36.7 % (42.0-52.0); Hemoglobin 12.7 g/dl (14.0-18.0); Imm Gran Abs Auto 0.02 X10*3/uL (0.00-0.03); Imm Gran Pct Auto 0.4 % (0.0-0.4); Lymphocytes Absolute Auto 1.5 X10*3/uL (1.2-4.9); Mean Corpuscular HGB Conc 34.6 g/dl (31.0-36.0); Mean Corpuscular Hemoglobin 31.4 pg (27.0-33.0); Mean Corpuscular Volume 90.8 fL (80.0-98.0); Mean Platelet Volume 10.8 fL (9.4-12.4); Monocytes Absolute Auto 0.5 X10*3/uL (0.1-1.2); Monocytes Percent Auto 8.4 % (2-11); Neutrophils Absolute Auto 3.4 x10*3/uL (2.0-8.3); Neutrophils Percent Auto 60.8 % (45-73); Platelet Count 198 X10*3/uL (160-400); Red Blood Count 4.04 X10*6/uL (4.60-5.80); Red Cell Distribution Width 12.3 % (11.0-16.0); White Blood Count 5.6 X10*3/uL (4.8-10.8)
[2022-03-04 11:06] LABS: Estimated Average Glucose 154 mg/dL
[2022-03-04 11:16] LABS: Bacteria Urine Trace (None Seen); Hyaline Casts Urine 0-2 /LPF (0-2); RBC Urine >20 /HPF (0-2); Squamous Epithelial Cell Urine 0-2 /HPF (0-2); WBC Urine >50 /HPF (0-5)
[2022-03-04 11:20] LABS: Creatinine Urine 89.13 mg/dL; Microalbum/Creatinine Ratio Ur 89.7 ug/mg cr
[2022-03-04 11:43] LABS: Alanine Aminotransferase 40 U/L (0-40); Albumin Level 4.1 g/dL (3.5-5.0); Alkaline Phosphatase 78 U/L (39-117); Anion Gap 16 (12-20); Aspartate Amino Transferase 37 U/L (5-37); Bilirubin Total 0.3 mg/dL (0.0-1.0); Blood Urea Nitrogen 16 mg/dL (9-16); Calcium 9.4 mg/dL (8.4-10.2); Carbon Dioxide 22 mmol/L (22-29); Chloride 107 mmol/L (96-108); Cholesterol 135 mg/dL; Estimated Glomerular Filt Rate > 60; Glucose Random 136 mg/dL (60-115); HDL Cholesterol 37 mg/dL; LDL Cholesterol Calculated 74 mg/dl; Potassium 4.7 mmol/L (3.3-5.1); Sodium 140 mmol/L (135-145); Total Protein 6.6 g/dL (6.5-8.0); Triglycerides 120 mg/dL
[2022-03-04 11:53] LABS: Prostate Specific Antigen 4.07 ng/mL (<0.05-4.0)
== END 2022-03-04 09:28 | disposition home or self-care (01) ==
LOC: HO.LAB 09:27
PROVIDERS: PCP Internal Medicine; Visit Provider Internal Medicine
DX: I25.10 Atherosclerotic heart disease of native coronary artery without angina pectoris (principal); I48.0 Paroxysmal atrial fibrillation; E11.9 Type 2 diabetes mellitus without complications; N40.0 Benign prostatic hyperplasia without lower urinary tract symptoms; E78.00 Pure hypercholesterolemia, unspecified; Z12.5 Encounter for screening for malignant neoplasm of prostate
CPT/HCPCS: 36415; 80053; 80061; 81001; 81003; 82043; 83036; 84153; 85025

== ENCOUNTER 2022-03-22 12:13 | Outpatient (REF) | payer MEDICARE, SELFPAY ==
[2022-03-22 12:41] LABS: MANUAL DIFF FLAG NO
[2022-03-22 13:29] LABS: Basophils Absolute Auto 0.1 X10*3/uL (0.0-0.2); Basophils Percent Auto 1.2 % (0-2); Eosinophils Absolute Auto 0.2 X10*3/uL (0.0-0.4); Eosinophils Percent Auto 3.6 % (0-4); Hematocrit 42.3 % (42.0-52.0); Hemoglobin 14.4 g/dl (14.0-18.0); Imm Gran Abs Auto 0.02 X10*3/uL (0.00-0.03); Imm Gran Pct Auto 0.3 % (0.0-0.4); Lymphocytes Absolute Auto 2.2 X10*3/uL (1.2-4.9); Lymphocytes Percent Auto 35.7 % (20-40); Mean Platelet Volume 10.6 fL (9.4-12.4); Monocytes Absolute Auto 0.4 X10*3/uL (0.1-1.2); Monocytes Percent Auto 7.1 % (2-11); Neutrophils Absolute Auto 3.1 x10*3/uL (2.0-8.3); Neutrophils Percent Auto 52.1 % (45-73); Platelet Count 252 X10*3/uL (160-400); Red Blood Count 4.65 X10*6/uL (4.60-5.80); Red Cell Distribution Width 12.3 % (11.0-16.0)
[2022-03-22 14:41] LABS: Alanine Aminotransferase 38 U/L (0-40); Albumin Level 4.2 g/dL (3.5-5.0); Alkaline Phosphatase 83 U/L (39-117); Anion Gap 12 (12-20); Aspartate Amino Transferase 38 U/L (5-37); Bilirubin Total 0.4 mg/dL (0.0-1.0); Blood Urea Nitrogen 15 mg/dL (9-16); Calcium 9.1 mg/dL (8.4-10.2); Carbon Dioxide 26 mmol/L (22-29); Chloride 102 mmol/L (96-108); Estimated Glomerular Filt Rate > 60; Glucose Random 129 mg/dL (60-115); Potassium 4.9 mmol/L (3.3-5.1); Sodium 135 mmol/L (135-145); Total Protein 6.7 g/dL (6.5-8.0)
[2022-03-23 13:37] LABS: HIV RNA PCR Qn Copies 45 copies/mL (NOT DETECTED); HIV RNA PCR Qn Log Copies 1.65 (NOT DETECTED)
[2022-03-25 12:58] LABS: Absolute CD3 Count 1538 cells/uL (840-3060); Absolute CD4 Count 762 cells/uL (490-1740); Absolute CD8 Count 789 cells/uL (180-1170); Absolute Lymphocytes 2006 cells/uL (850-3900); CD4 CD8 Ratio 0.97 (0.86-5.00); Percent CD3 Cells 77 % (57-85); Percent CD4 Cells 38 % (30-61); Percent CD8 Cells 39 % (12-42)
== END 2022-03-22 12:14 | disposition home or self-care (01) ==
LOC: HO.LAB 12:13
PROVIDERS: PCP Internal Medicine; Visit Provider Nurse Practitioner
DX: B20 Human immunodeficiency virus [HIV] disease (principal)
CPT/HCPCS: 36415; 80053; 85025; 86359; 86360; 87536

== ENCOUNTER → 2022-04-03 10:50 | Outpatient (BNVA) | payer MEDICARE, SELFPAY | PROVIDERS: PCP Internal Medicine; Visit Provider Urology | DX: C67.9 Malignant neoplasm of bladder, unspecified (principal); N40.1 Benign prostatic hyperplasia with lower urinary tract symptoms; N13.8 Other obstructive and reflux uropathy; Z21 Asymptomatic human immunodeficiency virus [HIV] infection status | CPT/HCPCS: 52000; 99212 ==

== ENCOUNTER → 2022-04-26 08:37 | Outpatient (REF) | payer MEDICARE, SELFPAY ==
--- NOTE | ~2022-04-26 | NM_ITS ---
Myocardial perfusion study Indication: Preoperative cardiovascular risk stratification Technique: The patient was brought in for a Lexiscan perfusion study on 04/26/2022. Patient performed low-level exercise and was injected 0.4 mg of Lexiscan intravenously. Within a minute of injection, 30 mCi of sestamibi was given intravenously. Images were obtained using the SPECT gamma camera interlaced with the gating device. Images were obtained in supine position. Resting perfusion study was performed on 04/29/2022. Patient was administered 30 mCi of sestamibi intravenously at rest. Images were then obtained in supine position. Images obtained with and without CT attenuation. Total DLP 129 mGy-cm. Images were processed with the software and compared side to side in short axis, horizontal long axis and vertical long axis views. Findings: The stress perfusion study showed non attenuated images show mildly to moderately reduced uptake in the septum as well as inferior wall of the LV myocardium. Remainder of the LV myocardium is normally perfused. Attenuation corrected images show normal uptake of radiotracer in all segments of LV myocardium. The gated study shows normal LV systolic function with calculated LVEF of 68%. LV cavity is normal size. The gated study shows normal systolic wall thickening and contraction of segments. Resting study shows no change in perfusion pattern compared to stress perfusion study. Gating at rest reveals normal systolic wall motion with ejection fraction at 60%. The findings are consistent with normal myocardial perfusion. NM/NM jeaneth perf SPECT rest & str Impression: 1. Myocardial perfusion imaging study shows normal myocardial perfusion 2. Gated LVEF is 68% 3. Transient ischemic dilatation not present EKG is nondiagnostic for ischemia
--- NOTE | 2022-04-26 08:40 | CA_ITS ---
Acquisition Time: 2022-04-26 08:42:40 Total Exercise Time: 00:02:00 Test Indications: AFIB, HTN Medications: SEE CHART Protocol: LEXISCAN Max HR: 126 BPM 87% of Pred: 144 BPM Max BP: 178/072 mmHG Max Work Load: 1.6 METS Pharmacological stress test with Lexiscan injection, while walking slow on treadmill, without anginal symptoms, with frequent PACs post injection ( PAF not ruled out), with normotensive response to injection, with nondiagnostic EKG for ischemia. In recovery his ectopy resolved. Nuclear images pending. Test reviewed with Dr Limon Referred By: Louie Bustamante Overread By: FELIX BEJARANO
== END ==
LOC: HO.CARD 08:37
PROVIDERS: PCP Internal Medicine; Visit Provider Internal Medicine Cardiovascular Disease
DX: Z01.818 Encounter for other preprocedural examination (principal); I48.0 Paroxysmal atrial fibrillation; I10 Essential (primary) hypertension
CPT/HCPCS: 78452; 93017; A9500; J0280; J2785

== ENCOUNTER 2022-05-13 08:59 | Day surgery (SDC) | payer MEDICARE, SELFPAY ==
[2022-05-13] VITALS (14 sets, daily range): BP systolic 130–175; BP diastolic 74–93; PULSE 58–71; RESP 14–18; TEMP 36.1–36.6; O2SAT 93–99; BMI 30.8
[2022-05-13] MEDS: levoFLOXacin 500 MG TABLET PO (10:30)
--- NOTE | 2022-05-13 11:29 | P.HPSUR_ITS ---
Pre-Procedural Eval Section A Date of Service: 05/13/22 The patient is an INPATIENT: No Changes since office visit: No Cold of Flu in the past 2 weeks, No New Medical Problems, No Changes in Medication and No Patient answered all questions The History & Physical has been completed within 30 days and I have reviewed it.: Yes Section B Chief Complaint: Malignant neoplasm of bladder, unspecified Details of Present Illness: bladder cancer Relevant Social History: None Present Medications: None Allergies: Allergies Allergy/AdvReac Type Severity Reaction Status Date / Time abacavir [From ZIAGEN] Allergy Intermediate MOVES FAT Verified 04/03/22 11:12 IN BODY nevirapine [From Viramune] Allergy Intermediate HIGH Verified 04/03/22 11:12 TEMP-WILLA JOHNSONS SYNDROME Review of Systems Sugical H&P ROS: Negative: Constitution, Cardiovascular, Respiratory, Neurological, Psychiatric, Hem-Onc, Allergic/Immunologic, Gastrointestinal, Genitourinary, Musculoskeletal, Integumentary, Endocrine and Eyes/Ears/Nose/Thr oat Exam Surgical H&P Exam: Normal: HEENT, Normal: Heart, Normal: Lungs, Normal: Extremities, Normal: Abdomen, Normal: Skin and Normal: Neurological Plan Diagnosis/Plan: Unchanged ( TURBT with gemcitabine) I have reviewed the history and physical and performed a pertinent physical examination on my patient. No changes have occurred unless specified. Time Spent With Patient Time: Total time managing care of this patient today ____ minutes.
--- NOTE | 2022-05-13 11:32 | P.CONAN_ITS ---
HPI - Anesthesia Eval Consult details Narrative: TUR bladder tumor PMFSH Active Problems Active Problems: All Active Problems (Updated 04/03/22 @ 11:55 by Ric Beaulieu MD) Bladder cancer (Acute) Overactive bladder (Acute) BPH w urinary obs/LUTS (Acute) Paroxysmal atrial fibrillation (Acute) HTN (hypertension) (Acute) Bilateral carotid artery disease (Acute) Past Medical History Medical History Bilateral carotid artery disease History of cardioversion History of seizure HIV positive HTN (hypertension) Paroxysmal atrial fibrillation Persistent atrial fibrillation Family History Family History Father Stroke Mother No problems noted. Family history of problems with anesthesia: No Surgical History Surgical History History of carotid endarterectomy (08/17/18) History of surgical removal of ganglion cyst Hx of cholecystectomy Hx of colonoscopy Hx of tonsillectomy History of Problems with Anesthesia: No Social History Social History Are you a primary student career development specialist to a significant other at home: No Do you presently have visiting nurse or other home services: No Patient Tobacco Use Status: Former Tobacco user Quit Date: Tobacco use type: Cigarette Second Hand Smoke Exposure: No Are you DNR?: No Advance Directives: Yes Advance Directives on File: Yes Advance Directives Date on File: 01/26/20 Meds Allergies Allergy/AdvReac Type Severity Reaction Status Date / Time abacavir [From ZIAGEN] Allergy Intermediate MOVES FAT Verified 04/03/22 11:12 IN BODY nevirapine [From Viramune] Allergy Intermediate HIGH Verified 04/03/22 11:12 TEMP-WILLA JOHNSONS SYNDROME Active Medications: Current Medications Gemcitabine HCl 1,000 mg/ (Sodium Chloride) 50 mls @ 50 mls/hr INTRAVESIC ONCE JASON Stop: 05/13/22 23:59 Gemcitabine HCl 1,000 mg/ (Sodium Chloride) 50 mls @ 50 mls/hr INTRAVESIC ONCE JASON Stop: 05/13/22 23:59 Lidocaine HCl (Lidocaine Hcl 2 % Urojet 10 Ml Jel.Pf.Carolyn) 10 ml TOPICAL ONCE JASON Stop: 05/13/22 23:59 Home Medications Medication Instructions Recorded Confirmed Last Taken Type albuterol sulfate 90 mcg/actuation 2 puff inhalation Q4-6H PRN 03/28/20 05/13/22 Unknown History aerosol inhaler Shortness Of Breath Or Wheezing alprazolam 0.25 mg tablet 0.25 mg PO BID PRN Anxiety 03/28/20 05/13/22 Unknown History atorvastatin 40 mg tablet 40 mg PO DAILY 03/28/20 05/13/22 Unknown History cholecalciferol (vitamin D3) 50 50 mcg PO DAILY 03/28/20 05/13/22 03/29/20 History mcg (2,000 unit) capsule efavirenz 600 mg tablet 600 mg PO BEDTIME 03/28/20 05/13/22 04/13/20 History emtricitabine 200 mg-tenofovir 1 tab PO DAILY 03/28/20 05/13/22 05/13/22 History alafenamide fumarate 25 mg tablet gabapentin 300 mg capsule 300 mg PO BID 03/28/20 05/13/22 01/16/22 History ipratropium bromide 21 mcg (0.03 spray intranasal 03/28/20 04/03/22 Unknown History %) nasal spray loperamide 2 mg capsule 2 mg PO Q6H PRN Diarrhea 03/28/20 05/13/22 Unknown History multivitamin,tl-krkb-sdjxsjec 1 tab PO DAILY 03/28/20 05/13/22 04/13/20 History (Complete Multivitamin tablet) omega 2-rwc-dvt-fish oil 100 1 cap PO DAILY 03/28/20 05/13/22 05/03/22 History mg-160 mg-1,000 mg capsule (Fish Oil) raltegravir 400 mg tablet 400 mg PO BID 03/28/20 05/13/22 01/16/22 History rivaroxaban 20 mg tablet 20 mg PO DAILY 03/28/20 05/13/22 05/08/22 History vitamin B complex (B 1 tab PO DAILY 03/28/20 05/13/22 04/13/20 History Complex-Vitamin B12 tablet) ergocalciferol (vitamin D2) 1,000 2,000 unit PO DAILY 04/13/20 05/13/22 04/13/20 History unit capsule omeprazole 20 mg capsule,delayed 20 mg PO BID 01/11/22 05/13/22 01/16/22 History release hyoscyamine sulfate 0.125 mg tablet 0.125 mg PO BID-QID PRN irritable 02/14/22 05/13/22 Unknown History bowel Exam Exam Date and Time: May 13, 2022 1132 Height,Weight and Vital Signs: Height 5 ft 10 in Weight 97.522 kg Last Vital Signs Temp 96.9 F 05/13/22 10:26 Pulse 58 05/13/22 10:26 Resp 16 05/13/22 10:26 BP 161/74 H 05/13/22 10:26 Pulse Ox 95 05/13/22 10:26 O2 Del Method 05/13/22 10:26 Airway Mallampati Class: III TM Dist: >3cm Neck ROM: Full Heart: ok Lungs: ok Assessment and Plan Final Anesthetic Review Family History of Problems with Anesthesia: No History of Problems with Anesthesia: No NPO: Yes ASA Class: III Final Preanesthetic Review: No Changes in Pt Med Stat, Meds/Allgs Chart Reviewed, Consent Obtained/Reviewed and Anes Risks/Benef Reviewed Patient Risk: Intermediate Procedure Risk: Low Anesthetic Plan Anesthetic Plan: GA and Agree w/ Assess. and Plan Disposition: Standard PACU
--- NOTE | 2022-05-13 12:30 | W.PM.OPN ---
Operative Note Operative Note Date of Service: 05/13/22 Narrative: PreOperative Diagnosis: bladder cancer Post Operative Diagnosis: bladder cancer Procedure: TURBT and Gemcitabine installation Surgeon: Dr Ric Beaulieu Anesthesia: general Indications for procedure: hematuria with lesion seen on cystoscopy and bladder Procedure: After informed consent was verified the patient was brought to the operating room and placed in a supine position. Anesthesia was administered per protocol. The patient was placed in a modified dorsal lithotomy position and prepped and draped in a sterile fashion. Safety pause time-out was performed. Antibiotics were confirmed. A 26 [place] continuous flow resectoscope was inserted per urethra. The visual obturator was used in order to minimize potential for urethral damage. lesion seen as prostate polyp on left side. Resection performed. At the completion of the procedure the bladder was irrigated. The cystoscope was removed. A [address] Xavier catheter was inserted into the bladder. 10 cc was placed in the balloon. 2 g of gemcitabine in 100 cc of normal saline was instilled into the bladder. The flow from the catheter was left clamped. The inflow to the catheter was attached to a 3 L normal saline bag. The patient tolerated the procedure well. They were extubated in the operating room and transferred in stable condition to the recovery area. Gemcitabine will remain in the bladder for 1 hour. At the completion of 1 hour the clamp will be removed. The gemcitabine will be allowed to egress to the urine collection bag. The 3 L bag of normal saline will be run at maximum rate through the bladder in order to dilute any residual gemcitabine. The Xavier catheter will then be removed. Pathology: Tissue sent Drains: catheter as above
[2022-05-13] MEDS: traMADoL HCL 50 MG TABLET PO (12:43)
[2022-05-13] MEDS: fentaNYL citrate/PF 100 MCG/2 ML VIAL 50 MCG IVPUSH ×4 (12:45→13:17)
[2022-05-13] MEDS: oxyCODONE HCl Immed Release 5 MG TABLET 10 MG PO (13:09)
[2022-05-13] MEDS: Acetaminophen 325 MG TABLET 650 MG PO (13:09)
== END 2022-05-13 15:40 | disposition home or self-care (01) ==
PROVIDERS: PCP Internal Medicine; Visit Provider Urology
PROC: 0TBB8ZZ Excision of Bladder, Via Natural or Artificial Opening Endoscopic (ICD-10-PCS; CPT 52235; principal; 2022-05-13 10:50)
DX: C67.9 Malignant neoplasm of bladder, unspecified (principal); N40.1 Benign prostatic hyperplasia with lower urinary tract symptoms; N13.8 Other obstructive and reflux uropathy; I48.0 Paroxysmal atrial fibrillation; I10 Essential (primary) hypertension; N32.81 Overactive bladder; I77.9 Disorder of arteries and arterioles, unspecified; Z21 Asymptomatic human immunodeficiency virus [HIV] infection status; Z87.891 Personal history of nicotine dependence; Z86.69 Personal history of other diseases of the nervous system and sense organs; Z79.899 Other long term (current) drug therapy; Z88.8 Allergy status to other drugs, medicaments and biological substances
CPT/HCPCS: 52235; 51720; 88305; J1100; J3010; J9201

== ENCOUNTER → 2022-05-16 10:26 | Outpatient (BNVA) | payer MEDICARE, SELFPAY | PROVIDERS: PCP Internal Medicine; Referring Provider Internal Medicine; Visit Provider Internal Medicine Cardiovascular Disease | DX: I48.0 Paroxysmal atrial fibrillation (principal); I10 Essential (primary) hypertension | CPT/HCPCS: 93005; 99212 ==

== ENCOUNTER 2022-05-22 09:46 | Outpatient (REF) | payer MEDICARE, SELFPAY ==
--- NOTE | ~2022-05-22 | US_ITS ---
EXAMINATION: US EXTRACRANIAL CAROTID DUPLEX, BILATERAL CLINICAL INFORMATION: Carotid artery stenosis. COMPARISON: 05/15/2021. TECHNIQUE: Real-time ultrasound and Doppler techniques (integrating B-mode 2-D vascular images, Doppler spectral analysis and color-flow Doppler imaging) were utilized to interrogate the extracranial carotid arteries, the vertebral arteries and proximal subclavian arteries bilaterally. The degree of stenosis is determined by criteria similar to NASCET. FINDINGS: Right Side: 1. There is mild atherosclerotic plaque seen in the bifurcation/proximal ICA region. 2. The common carotid artery PSV proximally is 100 cm/s and distally 87 cm/s. 3. The proximal internal carotid artery velocities are 131 cm/s systolic and 34 cm/s diastolic. 4. The proximal external carotid artery PSV is 199 cm/s. 5. The vertebral artery shows antegrade flow. 6. The subclavian artery waveforms are normal. Left Side: 1. There is mild atherosclerotic plaque seen in the bifurcation/proximal ICA region. 2. The common carotid artery PSV proximally is 109 cm/s and distally 103 cm/s. 3. The proximal internal carotid artery velocities are 134 cm/s systolic and 38 cm/s diastolic. 4. The proximal external carotid artery PSV is 237 cm/s. 5. The vertebral artery shows antegrade flow. 6. The subclavian artery waveforms are normal. US/US carotid duplex BI IMPRESSION: 1. RIGHT: Moderate, hemodynamically significant stenosis of the proximal right internal carotid artery corresponding to a 50-79% stenosis by velocity criteria. 2. LEFT: Moderate, hemodynamically significant stenosis of the proximal left internal carotid artery corresponding to a 50-79% stenosis by velocity criteria. 3. Bilaterally, the proximal internal carotid artery disease has increased from 0-49% to 50-79% stenosis by velocity criteria compared to the prior study..
== END 2022-05-22 09:47 | disposition home or self-care (01) ==
LOC: HO.US 09:46
PROVIDERS: PCP Internal Medicine; Visit Provider Surgery Vascular Surgery
DX: I65.23 Occlusion and stenosis of bilateral carotid arteries (principal)
CPT/HCPCS: 93880

== ENCOUNTER → 2022-05-28 11:38 | Outpatient (BNVA) | payer MEDICARE, SELFPAY | PROVIDERS: PCP Internal Medicine; Visit Provider Urology | DX: N40.1 Benign prostatic hyperplasia with lower urinary tract symptoms (principal); N13.8 Other obstructive and reflux uropathy; R35.0 Frequency of micturition; N32.81 Overactive bladder | CPT/HCPCS: 51798; 99212 ==

== ENCOUNTER 2022-05-30 10:33 | Outpatient (REF) | payer MEDICARE, SELFPAY ==
[2022-05-30 13:38] LABS: MANUAL DIFF FLAG NO
[2022-05-30 13:43] LABS: Basophils Percent Auto 0.8 % (0-2); Eosinophils Absolute Auto 0.1 X10*3/uL (0.0-0.4); Eosinophils Percent Auto 2.5 % (0-4); Hematocrit 39.1 % (42.0-52.0); Hemoglobin 13.3 g/dl (14.0-18.0); Imm Gran Abs Auto 0.01 X10*3/uL (0.00-0.03); Imm Gran Pct Auto 0.2 % (0.0-0.4); Lymphocytes Absolute Auto 1.8 X10*3/uL (1.2-4.9); Lymphocytes Percent Auto 36.9 % (20-40); Mean Corpuscular Hemoglobin 30.9 pg (27.0-33.0); Mean Corpuscular Volume 90.9 fL (80.0-98.0); Mean Platelet Volume 10.5 fL (9.4-12.4); Monocytes Absolute Auto 0.4 X10*3/uL (0.1-1.2); Monocytes Percent Auto 7.3 % (2-11); Neutrophils Absolute Auto 2.5 x10*3/uL (2.0-8.3); Neutrophils Percent Auto 52.3 % (45-73); Platelet Count 221 X10*3/uL (160-400); Red Cell Distribution Width 12.8 % (11.0-16.0); White Blood Count 4.8 X10*3/uL (4.8-10.8)
[2022-05-30 14:03] LABS: Alanine Aminotransferase 37 U/L (0-40); Albumin Level 4.2 g/dL (3.5-5.0); Alkaline Phosphatase 83 U/L (39-117); Anion Gap 17 (12-20); Aspartate Amino Transferase 34 U/L (5-37); Bilirubin Total 0.4 mg/dL (0.0-1.0); Blood Urea Nitrogen 13 mg/dL (9-16); Calcium 9.4 mg/dL (8.4-10.2); Carbon Dioxide 25 mmol/L (22-29); Chloride 105 mmol/L (96-108); Estimated Glomerular Filt Rate > 60; Glucose Random 155 mg/dL (60-115); Potassium 5.5 mmol/L (3.3-5.1); Sodium 141 mmol/L (135-145); Total Protein 6.6 g/dL (6.5-8.0)
[2022-05-30 14:14] LABS: Estimated Average Glucose 160 mg/dL; Hemoglobin A1c % 7.2 %
== END 2022-05-30 10:34 | disposition home or self-care (01) ==
LOC: HO.10HDL 10:33
PROVIDERS: Visit Provider Internal Medicine
DX: E11.9 Type 2 diabetes mellitus without complications (principal); I48.0 Paroxysmal atrial fibrillation; I10 Essential (primary) hypertension
CPT/HCPCS: 36415; 80053; 83036; 85025

== ENCOUNTER 2022-06-05 09:22 | Outpatient (REF) | payer MEDICARE, SELFPAY ==
[2022-06-05 11:19] LABS: Potassium 4.9 mmol/L (3.3-5.1)
== END 2022-06-05 09:23 | disposition home or self-care (01) ==
LOC: HO.10HDL 09:22
PROVIDERS: Visit Provider Internal Medicine
DX: E87.5 Hyperkalemia (principal)
CPT/HCPCS: 36415; 84132

== ENCOUNTER → 2022-06-11 09:47 | Outpatient (BNVA) | payer MEDICARE, SELFPAY | PROVIDERS: PCP Internal Medicine; Visit Provider Surgery Vascular Surgery | DX: I65.23 Occlusion and stenosis of bilateral carotid arteries (principal) | CPT/HCPCS: 99212 ==

== ENCOUNTER 2022-07-12 14:55 | Outpatient (REF) | payer MEDICARE, SELFPAY ==
[2022-07-12 18:00] LABS: Appearance Urine Clear; Color Urine Dark Yellow; Glucose Urine UA Negative (Negative); Leukocyte Esterase Urine Moderate (2+) (Negative); Nitrite Urine Negative (Negative); UMIC TRIGGER UACC YES; Urine Blood Negative (Negative); Urine Ketones Negative (Negative); Urine Protein Negative (Neg-Trace)
[2022-07-12 18:03] LABS: Bacteria Urine None Seen (None Seen); Hyaline Casts Urine 0-2 /LPF (0-2); RBC Urine 0-2 /HPF (0-2); Squamous Epithelial Cell Urine 0-2 /HPF (0-2); UACC Culture Trigger YES
== END 2022-07-12 14:56 | disposition home or self-care (01) ==
LOC: HO.LAB 14:55
PROVIDERS: PCP Internal Medicine; Visit Provider Internal Medicine
DX: R31.9 Hematuria, unspecified (principal)
CPT/HCPCS: 81001; 87086; 87147

== ENCOUNTER → 2022-08-01 09:45 | Outpatient (BNVA) | payer MEDICARE, SELFPAY | PROVIDERS: PCP Internal Medicine; Referring Provider Internal Medicine; Visit Provider Internal Medicine Cardiovascular Disease | DX: Z13.89 Encounter for screening for other disorder (principal) | CPT/HCPCS: 93005 ==

== ENCOUNTER 2022-08-23 11:01 | Outpatient (REF) | payer MEDICARE, SELFPAY | END 2022-08-23 11:02 | disposition home or self-care (01) | LOC: HO.LAB 11:01 | PROVIDERS: PCP Internal Medicine; Visit Provider Urology | DX: C67.9 Malignant neoplasm of bladder, unspecified (principal); N30.20 Other chronic cystitis without hematuria; R33.9 Retention of urine, unspecified; Z79.899 Other long term (current) drug therapy | CPT/HCPCS: 52000; 99212 ==

== ENCOUNTER 2022-08-23 11:01 | Outpatient (AMB) | payer MEDICARE, SELFPAY ==
--- NOTE | 2022-08-23 11:06 | MHC.OFFVIS ---
Intake Intake Visit Reasons: Cysto Intake Note: Patient is present for Cystoscopy Urology Med: Oxybutynin, Terazosin Antibiotic Allergy: None Blood Thinner: Rivaroxaban (Xarelto) Disposable Cystoscope LOT:[id number] EXP: 10/24/2024 Allergies abacavir [From ZIAGEN] Allergy (Intermediate, Verified 11/27/22 10:29) MOVES FAT IN BODY nevirapine [From Viramune] Allergy (Intermediate, Verified 11/27/22 10:29) HIGH TEMP-WILLA JOHNSONS SYNDROME HPI HPI Comments History of Present Illness Details Juan is a pleasant male. He is a patient of Dr. Calloway. He is seen for the following urologic conditions. - lower urinary tract symptoms Discussed results Prostatic polyp Is urinating better since procedure 3 month follow-up check cystoscopy No recurrence Lower urinary tract symptoms Mildly increased urgency and frequency Current therapy tamsulosin Current symptoms mild urgency, nocturia x1 PSA 12/08 2.0, 11/08 1.9, 03/12 4.1 Interventions - 05/13 TUR prostate polyp - chronic inflammation HBA1c - 10/10 6.6 Long-term HIV since 1989 with triple therapy PFSH Medical History Bilateral carotid artery disease History of cardioversion History of seizure HIV positive HTN (hypertension) Paroxysmal atrial fibrillation Persistent atrial fibrillation Surgical History History of carotid endarterectomy (08/17/18) History of surgical removal of ganglion cyst Hx of cholecystectomy Hx of colonoscopy Hx of tonsillectomy Family History Father Stroke Mother No problems noted. Social History Are you a primary health care manager to a significant other at home: No Do you presently have visiting nurse or other home services: No Patient Tobacco Use Status: Former Tobacco user Quit Date: Tobacco use type: Cigarette Second Hand Smoke Exposure: No Advance Directives Date on File: 01/26/20 Review of Systems Const Denies chills and Denies fever(s) Card Reports no additional complaints and Denies syncope Resp Denies cough GI Denies abdominal pain and Denies heartburn Reports as per HPI and Denies change in libido Neuro Denies syncope Psych Denies change in libido Endo Denies change in libido Physical Exam Const General: cooperative, healthy appearing, comfortable and no acute distress Orientation/consciousness: patient oriented x3 HEENT Face and sinus: Yes normal facial exam Mouth: moist mucous membranes Neck Neck: Yes normal visual inspection, Yes full ROM and Yes trachea midline Chest Chest palpation & inspection: normal inspection of the chest Resp Effort & Inspection: normal respiratory effort, able to speak in complete sentences and no respiratory distress GI Inspection: Yes normal to inspection Back/Spine/Pelvis Cervical Spine: normal cervical lordosis Thoracic/Lumbar Spine: thoracic and lumbar spine normal to inspection Skin General skin exam: no rashes or lesions noted Neuro General: patient oriented x3, gait normal, tone normal and moves all extremities Extrem General: Yes normal to inspection and Yes capillary refill normal Office Procedures Cystoscopy Consent Discussed risk and benefit or proposed procedure with the patient. Information consent for procedure given to the patient. Discussed technical aspects, risks, benefits and alternatives in full. Addressed all of the patient's questions and concerns regarding the procedure. The patient demonstrated knowledge and understanding. They wish to proceed with this procedure. Preparation The patient was prepped in the usual manner. A jewel setter was present and in the room. Genitalia was prepped with betadine solution in a sterile manner. Lidocaine Jelly 2% was placed into the urethra and 16Fr flexible Olympus cystoscope was inserted into the meatus after adequate lubrication. Procedure Meatus circumcised Urethra anterior posterior throat normal Prostatic Urethra unremarkable no evidence of prostate polyp Bladder examination with retroflexion of cystoscope Bladder Orifices normal shape and position Bladder Capacity medium Trabeculations grade 1 Cellule Formation - Diverticulum Formation - Mucosal Erythema - Bladder Tumor - [id number] Procedure code (CPT) selection complete Office Meds lidocaine HCl Performing Provider: Ric Beaulieu MD Administered by: Jessica Noel RN on 08/23/22 11:23 Dose Route Admin Location Lot Number Expiration Date NDC Retail Sales Director 10 mL intra-urethral nitrofurantoin monohyd/m-cryst 100 mg Performing Provider: Ric Beaulieu MD Administered by: Jessica Noel RN on 08/23/22 11:23 Dose Route Admin Location Lot Number Expiration Date [employer] Retail Sales Director 100 mg PO Assessment & Plan Assessment & Plan (1) Chronic cystitis: Comment: 09/10 one cystoscopy Code(s): N30.20 - Other chronic cystitis without hematuria Plan Suppression antibiotic Three month follow-up Orders: Orders Urine Cytology 08/23/22 C67.9 - Malignant neoplasm of bladder, unspecified AMB Cystoscopy 08/23/22 C67.9 - Malignant neoplasm of bladder, unspecified AMB Urinalysis Automated 08/23/22 Z13.9 - Encounter for screening, unspecified Medications: New trimethoprim 100 mg PO DAILY 90 tabs 1RF 90 days N30.20 - Other chronic cystitis without hematuria, R33.9 - Retention of urine, unspecified Discontinued oxybutynin chloride ER Discontinued Reason: Doctor's Order 10 mg PO DAILY 30 days 30 tabs 0RF N32.81 - Overactive bladder Patient Instructions: Imaging studies, laboratory and physical exam results were discussed and reviewed in detail. No major barriers to patient understanding were identified. An opportunity to ask questions regarding the treatment plan was provided. All questions were answered. The patient expressed understanding and agreement with the above treatment plan. The patient is aware they should contact our office by phone for worsening of their current condition or the appearance of new urologic symptoms. Compliance is encouraged with any medications and followup testing that is ordered. It is a privilege to participate in the urologic care of your patient. If you have any questions or concerns regarding treatment for the above conditions, or other urologic issues, please do not hesitate to contact me. The office telephone contact is [phone]. This note is constructed using voice recognition software. While every effort has been made to ensure accuracy program research specialist errors may have been included. Yours sincerely, Dr Ric Beaulieu MD, [facility] - Urology Providers of Expert, Compassionate Care for the Genitourinary System Coding Level of Care Code Est Pt Level 3 (86724) Diagnoses Chronic cystitis N30.20 CPT Codes Cystoscopy - CPT: 86407-Eiootkecsu ([id number])
== END 2022-08-23 11:52 | disposition home or self-care (01) ==
LOC: HO.HUSH 11:01
PROVIDERS: PCP Internal Medicine; Visit Provider Urology
DX: N30.20 Other chronic cystitis without hematuria (principal)
CPT/HCPCS: 52000; 99213

== ENCOUNTER 2022-08-29 10:27 | Outpatient (REF) | payer MEDICARE, SELFPAY ==
[2022-08-29 13:32] LABS: MANUAL DIFF FLAG NO
[2022-08-29 13:39] LABS: Basophils Absolute Auto 0.1 X10*3/uL (0.0-0.2); Basophils Percent Auto 0.9 % (0-2); Eosinophils Absolute Auto 0.2 X10*3/uL (0.0-0.4); Eosinophils Percent Auto 2.5 % (0-4); Hematocrit 35.8 % (42.0-52.0); Hemoglobin 12.1 g/dl (14.0-18.0); Imm Gran Abs Auto 0.02 X10*3/uL (0.00-0.03); Imm Gran Pct Auto 0.3 % (0.0-0.4); Lymphocytes Absolute Auto 1.6 X10*3/uL (1.2-4.9); Lymphocytes Percent Auto 23.7 % (20-40); Mean Corpuscular HGB Conc 33.8 g/dl (31.0-36.0); Mean Corpuscular Hemoglobin 31.4 pg (27.0-33.0); Mean Platelet Volume 10.8 fL (9.4-12.4); Monocytes Absolute Auto 0.5 X10*3/uL (0.1-1.2); Monocytes Percent Auto 7.8 % (2-11); Neutrophils Absolute Auto 4.4 x10*3/uL (2.0-8.3); Neutrophils Percent Auto 64.8 % (45-73); Platelet Count 199 X10*3/uL (160-400); Red Blood Count 3.85 X10*6/uL (4.60-5.80); Red Cell Distribution Width 12.6 % (11.0-16.0); White Blood Count 6.8 X10*3/uL (4.8-10.8)
[2022-08-29 13:54] LABS: Estimated Average Glucose 154 mg/dL
[2022-08-29 14:09] LABS: Alanine Aminotransferase 40 U/L (0-40); Albumin Level 3.9 g/dL (3.5-5.0); Alkaline Phosphatase 79 U/L (39-117); Anion Gap 12 (12-20); Aspartate Amino Transferase 48 U/L (5-37); Bilirubin Total 0.3 mg/dL (0.0-1.0); Blood Urea Nitrogen 20 mg/dL (9-16); Calcium 8.8 mg/dL (8.4-10.2); Carbon Dioxide 25 mmol/L (22-29); Chloride 107 mmol/L (96-108); Estimated Glomerular Filt Rate > 60; Glucose Random 138 mg/dL (60-115); Iron 47 mcg/dL (45-160); Percent Iron Saturation 18 % (15-50); Potassium 4.4 mmol/L (3.3-5.1); Sodium 140 mmol/L (135-145); Total Iron Binding Capacity 268 mcg/dL (228-428); Total Protein 6.1 g/dL (6.5-8.0); Unsaturated Iron Binding 221 ug/dL
[2022-08-29 14:34] LABS: Creatinine Urine 152.75 mg/dL; Microalbum/Creatinine Ratio Ur 198.3 ug/mg cr
== END 2022-08-29 10:28 | disposition home or self-care (01) ==
LOC: HO.10HDL 10:27
PROVIDERS: Visit Provider Internal Medicine
DX: E11.9 Type 2 diabetes mellitus without complications (principal); D64.9 Anemia, unspecified; I48.0 Paroxysmal atrial fibrillation; R79.89 Other specified abnormal findings of blood chemistry
CPT/HCPCS: 36415; 80053; 82043; 83036; 83540; 85025

== ENCOUNTER 2022-11-07 09:54 | Outpatient (AMB) | payer MEDICARE, SELFPAY ==
--- NOTE | 2022-11-07 10:09 | AM.OFFVISNUR ---
Intake Intake Visit Reasons: ekg Senior Assistant Manager Required: No Accompanied by: Self / Same As Patient Allergies abacavir [From ZIAGEN] Allergy (Intermediate, Verified 11/07/22 10:11) MOVES FAT IN BODY nevirapine [From Viramune] Allergy (Intermediate, Verified 11/07/22 10:11) HIGH TEMP-WILLA JOHNSONS SYNDROME Nursing Note Pt was seen in office for a routine EKG. Currently on Multaq 400mg BID. No cardiac complaints. EKG shows auto reading of sinus rhythm w/ 1st degree AV block w/ heart rate of 72BPM. EKG reviewed by Dr. Bustamante. No changes, pt made aware. Worload message created and sent to Dr. Bustamante for documentation purposes. Office Procedures EKG [id number], Complete Coding Diagnoses CPT Codes EKG - CPT: 81870-[id number], Complete ([id number])
== END 2022-11-07 10:39 | disposition home or self-care (01) ==
PROVIDERS: Visit Provider Internal Medicine Cardiovascular Disease
DX: I44.0 Atrioventricular block, first degree (principal)
CPT/HCPCS: 93010

== ENCOUNTER → 2022-11-07 09:54 | Outpatient (BNVA) | payer MEDICARE, SELFPAY | PROVIDERS: Visit Provider Internal Medicine Cardiovascular Disease | DX: I44.0 Atrioventricular block, first degree (principal); Z79.899 Other long term (current) drug therapy | CPT/HCPCS: 93005 ==

== ENCOUNTER 2022-11-27 10:23 | Outpatient (AMB) | payer MEDICARE, SELFPAY ==
--- NOTE | 2022-11-27 10:28 | A.OFFVIS_ITS ---
Intake Intake Visit Reasons: 3m follow up/UA Intake Note: Pt presents to the office for a 3 month follow-up/UA. Pt is unable to void. PVR:25ml Allergies abacavir [From ZIAGEN] Allergy (Intermediate, Verified 11/27/22 10:29) MOVES FAT IN BODY nevirapine [From Viramune] Allergy (Intermediate, Verified 11/27/22 10:29) HIGH TEMP-WILLA JOHNSONS SYNDROME HPI HPI Comments History of Present Illness Details Juan is a pleasant male. He is a patient of Dr. Calloway. He is seen for the following urologic conditions. - lower urinary tract symptoms PVR 25 cc Effective bladder emptying Completed 3 months suppression trimethoprim Will complete 3 more months Very happy with current symptoms Significant decrease in urgency and frequency Lower urinary tract symptoms Mildly increased urgency and frequency Current therapy terazosin 5 mg Current symptoms mild urgency, nocturia x1 PSA 12/08 2.0, 11/08 1.9, 03/12 4.1 Interventions - 05/13 TUR prostate polyp - chronic inflammation HBA1c - 10/10 6.6 Long-term HIV since 1989 with triple therapy PFSH Medical History Bilateral carotid artery disease History of cardioversion History of seizure HIV positive HTN (hypertension) Paroxysmal atrial fibrillation Persistent atrial fibrillation Surgical History History of carotid endarterectomy (08/17/18) History of surgical removal of ganglion cyst Hx of cholecystectomy Hx of colonoscopy Hx of tonsillectomy Family History Father Stroke Mother No problems noted. Social History Are you a primary career development associate to a significant other at home: No Do you presently have visiting nurse or other home services: No Patient Tobacco Use Status: Former Tobacco user Quit Date: Tobacco use type: Cigarette Second Hand Smoke Exposure: No Advance Directives Date on File: 01/26/20 Review of Systems Const Denies chills and Denies fever(s) Card Reports no additional complaints and Denies syncope Resp Denies cough GI Denies abdominal pain and Denies heartburn Reports as per HPI and Denies change in libido Neuro Denies syncope Psych Denies change in libido Endo Denies change in libido Physical Exam Const General: cooperative, healthy appearing, comfortable and no acute distress Orientation/consciousness: patient oriented x3 HEENT Face and sinus: Yes normal facial exam Mouth: moist mucous membranes Neck Neck: Yes normal visual inspection, Yes full ROM and Yes trachea midline Chest Chest palpation & inspection: normal inspection of the chest Resp Effort & Inspection: normal respiratory effort, able to speak in complete sentences and no respiratory distress GI Inspection: Yes normal to inspection Back/Spine/Pelvis Cervical Spine: normal cervical lordosis Thoracic/Lumbar Spine: thoracic and lumbar spine normal to inspection Skin General skin exam: no rashes or lesions noted Neuro General: patient oriented x3, gait normal, tone normal and moves all extremities Extrem General: Yes normal to inspection and Yes capillary refill normal Office Procedures Post Void Residual Post Residual Void Post Void Residual (PVR): 25 [id number] Void Residual by ultrasound Assessment & Plan Assessment & Plan (1) Overactive bladder: Code(s): N32.81 - Overactive bladder (2) Chronic cystitis: Comment: 09/10 one cystoscopy Code(s): N30.20 - Other chronic cystitis without hematuria (3) BPH w urinary obs/LUTS: Code(s): N40.1 - Benign prostatic hyperplasia with lower urinary tract symptoms; N13.8 - Other obstructive and reflux uropathy Plan Six month follow-up Orders: Orders AMB Post Void Residual by ultrasound Today N32.81 - Overactive bladder Patient Instructions: Imaging studies, laboratory and physical exam results were discussed and reviewed in detail. No major barriers to patient understanding were identified. An opportunity to ask questions regarding the treatment plan was provided. All questions were answered. The patient expressed understanding and agreement with the above treatment plan. The patient is aware they should contact our office by phone for worsening of their current condition or the appearance of new urologic symptoms. Compliance is encouraged with any medications and followup testing that is ordered. It is a privilege to participate in the urologic care of your patient. If you have any questions or concerns regarding treatment for the above conditions, or other urologic issues, please do not hesitate to contact me. The office telephone contact is [phone]. This note is constructed using voice recognition software. While every effort has been made to ensure accuracy french comber errors may have been included. Yours sincerely, Dr Ric Beaulieu MD, [facility] - Urology Providers of Expert, Compassionate Care for the Genitourinary System Coding Level of Care Code Est Pt Level 3 (76865) Diagnoses Overactive bladder N32.81 Chronic cystitis N30.20 BPH w urinary obs/LUTS N40.1; N13.8 CPT Codes Post Residual Void - PVR CPT Code: 63972-Ljpi Void Residual by ultrasound ([id number])
== END 2022-11-27 10:48 | disposition home or self-care (01) ==
PROVIDERS: Visit Provider Urology
DX: N32.81 Overactive bladder (principal); N30.20 Other chronic cystitis without hematuria; N40.1 Benign prostatic hyperplasia with lower urinary tract symptoms; N13.8 Other obstructive and reflux uropathy
CPT/HCPCS: 99213

== ENCOUNTER → 2022-11-27 10:23 | Outpatient (BNVA) | payer MEDICARE, SELFPAY | PROVIDERS: Visit Provider Urology | DX: N40.1 Benign prostatic hyperplasia with lower urinary tract symptoms (principal); N13.8 Other obstructive and reflux uropathy; N32.81 Overactive bladder; N30.20 Other chronic cystitis without hematuria | CPT/HCPCS: 51798; 99212 ==

== ENCOUNTER 2022-12-02 07:55 | Outpatient (REF) | payer MEDICARE, SELFPAY ==
[2022-12-02 08:22] LABS: MANUAL DIFF FLAG NO
[2022-12-02 08:54] LABS: Basophils Absolute Auto 0.1 X10*3/uL (0.0-0.2); Basophils Percent Auto 1.2 % (0-2); Eosinophils Absolute Auto 0.1 X10*3/uL (0.0-0.4); Eosinophils Percent Auto 2.3 % (0-4); Hematocrit 40.2 % (42.0-52.0); Hemoglobin 13.6 g/dl (14.0-18.0); Imm Gran Abs Auto 0.02 X10*3/uL (0.00-0.03); Imm Gran Pct Auto 0.4 % (0.0-0.4); Lymphocytes Absolute Auto 1.9 X10*3/uL (1.2-4.9); Lymphocytes Percent Auto 37.1 % (20-40); Mean Corpuscular HGB Conc 33.8 g/dl (31.0-36.0); Mean Corpuscular Hemoglobin 31.1 pg (27.0-33.0); Mean Platelet Volume 10.2 fL (9.4-12.4); Monocytes Absolute Auto 0.3 X10*3/uL (0.1-1.2); Monocytes Percent Auto 6.6 % (2-11); Neutrophils Absolute Auto 2.7 x10*3/uL (2.0-8.3); Neutrophils Percent Auto 52.4 % (45-73); Platelet Count 200 X10*3/uL (160-400); Red Blood Count 4.37 X10*6/uL (4.60-5.80); Red Cell Distribution Width 12.5 % (11.0-16.0); White Blood Count 5.2 X10*3/uL (4.8-10.8)
[2022-12-02 10:08] LABS: Creatinine Urine 126.47 mg/dL; Microalbumin Urine < 5.0 mg/L
[2022-12-02 10:32] LABS: Alanine Aminotransferase 49 U/L (0-40); Albumin Level 4.1 g/dL (3.5-5.0); Alkaline Phosphatase 74 U/L (39-117); Anion Gap 13 (12-20); Aspartate Amino Transferase 62 U/L (5-37); Bilirubin Total 0.5 mg/dL (0.0-1.0); Blood Urea Nitrogen 13 mg/dL (9-16); Calcium 9.4 mg/dL (8.4-10.2); Carbon Dioxide 24 mmol/L (22-29); Chloride 106 mmol/L (96-108); Estimated Glomerular Filt Rate 56; Glucose Random 178 mg/dL (60-115); Potassium 4.6 mmol/L (3.3-5.1); Sodium 138 mmol/L (135-145)
[2022-12-02 11:31] LABS: Estimated Average Glucose 163 mg/dL; Hemoglobin A1c % 7.3 %
== END 2022-12-02 07:56 | disposition home or self-care (01) ==
LOC: HO.LAB 07:55
PROVIDERS: PCP Internal Medicine; Visit Provider Internal Medicine
DX: E11.9 Type 2 diabetes mellitus without complications (principal); R63.5 Abnormal weight gain; N40.0 Benign prostatic hyperplasia without lower urinary tract symptoms; M54.9 Dorsalgia, unspecified; I25.10 Atherosclerotic heart disease of native coronary artery without angina pectoris; I48.0 Paroxysmal atrial fibrillation; K57.90 Diverticulosis of intestine, part unspecified, without perforation or abscess without bleeding
CPT/HCPCS: 36415; 80053; 82043; 83036; 85025

== ENCOUNTER → 2023-02-06 09:51 | Outpatient (BNVA) | payer MEDICARE, SELFPAY | PROVIDERS: PCP Internal Medicine; Visit Provider Internal Medicine Cardiovascular Disease ==

== ENCOUNTER 2023-02-11 14:37 | Outpatient (REF) | payer MEDICARE, SELFPAY ==
[2023-02-11 14:53] LABS: MANUAL DIFF FLAG NO
[2023-02-11 15:29] LABS: Basophils Absolute Auto 0.1 X10*3/uL (0.0-0.2); Basophils Percent Auto 1.4 % (0-2); Eosinophils Absolute Auto 0.1 X10*3/uL (0.0-0.4); Eosinophils Percent Auto 2.5 % (0-4); Hematocrit 38.2 % (42.0-52.0); Hemoglobin 12.9 g/dl (14.0-18.0); Imm Gran Abs Auto 0.01 X10*3/uL (0.00-0.03); Imm Gran Pct Auto 0.2 % (0.0-0.4); Lymphocytes Absolute Auto 1.9 X10*3/uL (1.2-4.9); Lymphocytes Percent Auto 39.1 % (20-40); Mean Corpuscular HGB Conc 33.8 g/dl (31.0-36.0); Mean Corpuscular Volume 91.8 fL (80.0-98.0); Mean Platelet Volume 10.2 fL (9.4-12.4); Monocytes Absolute Auto 0.4 X10*3/uL (0.1-1.2); Monocytes Percent Auto 7.5 % (2-11); Neutrophils Absolute Auto 2.4 x10*3/uL (2.0-8.3); Neutrophils Percent Auto 49.3 % (45-73); Platelet Count 196 X10*3/uL (160-400); Red Blood Count 4.16 X10*6/uL (4.60-5.80); Red Cell Distribution Width 12.2 % (11.0-16.0); White Blood Count 4.8 X10*3/uL (4.8-10.8)
[2023-02-11 16:10] LABS: Alanine Aminotransferase 39 U/L (0-40); Albumin Level 4.2 g/dL (3.5-5.0); Alkaline Phosphatase 74 U/L (39-117); Anion Gap 14 (12-20); Aspartate Amino Transferase 41 U/L (5-37); Bilirubin Total 0.3 mg/dL (0.0-1.0); Blood Urea Nitrogen 14 mg/dL (9-16); Calcium 9.2 mg/dL (8.4-10.2); Carbon Dioxide 24 mmol/L (22-29); Chloride 108 mmol/L (96-108); Estimated Glomerular Filt Rate > 60; Glucose Random 177 mg/dL (60-115); Potassium 4.4 mmol/L (3.3-5.1); Sodium 142 mmol/L (135-145)
[2023-02-12 13:48] LABS: HIV RNA PCR Qn Copies NOT DETECTED copies/mL (NOT DETECTED); HIV RNA PCR Qn Log Copies NOT DETECTED (NOT DETECTED)
[2023-02-13 07:03] LABS: Absolute CD3 Count 1531 cells/uL (840-3060); Absolute CD4 Count 831 cells/uL (490-1740); Absolute CD8 Count 686 cells/uL (180-1170); Absolute Lymphocytes 2018 cells/uL (850-3900); CD4 CD8 Ratio 1.21 (0.86-5.00); Percent CD3 Cells 76 % (57-85); Percent CD4 Cells 41 % (30-61); Percent CD8 Cells 34 % (12-42)
== END 2023-02-11 14:38 | disposition home or self-care (01) ==
LOC: HO.LAB 14:37
PROVIDERS: Visit Provider Nurse Practitioner
DX: B20 Human immunodeficiency virus [HIV] disease (principal)
CPT/HCPCS: 36415; 80053; 85025; 86359; 86360; 87536

== ENCOUNTER 2023-03-10 09:08 | Outpatient (REF) | payer MEDICARE, SELFPAY ==
[2023-03-10 09:35] LABS: MANUAL DIFF FLAG NO
[2023-03-10 10:03] LABS: Basophils Absolute Auto 0.1 X10*3/uL (0.0-0.2); Basophils Percent Auto 1.1 % (0-2); Eosinophils Absolute Auto 0.1 X10*3/uL (0.0-0.4); Eosinophils Percent Auto 2.3 % (0-4); Hematocrit 38.3 % (42.0-52.0); Hemoglobin 12.8 g/dl (14.0-18.0); Imm Gran Abs Auto 0.02 X10*3/uL (0.00-0.03); Imm Gran Pct Auto 0.4 % (0.0-0.4); Lymphocytes Absolute Auto 1.8 X10*3/uL (1.2-4.9); Lymphocytes Percent Auto 33.9 % (20-40); Mean Corpuscular HGB Conc 33.4 g/dl (31.0-36.0); Mean Corpuscular Hemoglobin 31.1 pg (27.0-33.0); Mean Corpuscular Volume 93.2 fL (80.0-98.0); Mean Platelet Volume 10.1 fL (9.4-12.4); Monocytes Absolute Auto 0.3 X10*3/uL (0.1-1.2); Monocytes Percent Auto 6.4 % (2-11); Neutrophils Percent Auto 55.9 % (45-73); Platelet Count 213 X10*3/uL (160-400); Red Blood Count 4.11 X10*6/uL (4.60-5.80); Red Cell Distribution Width 12.3 % (11.0-16.0); White Blood Count 5.3 X10*3/uL (4.8-10.8)
[2023-03-10 10:04] LABS: Estimated Average Glucose 174 mg/dL; Hemoglobin A1c % 7.7 % (<6.0)
[2023-03-10 10:21] LABS: Alanine Aminotransferase 41 U/L (0-40); Albumin Level 4.1 g/dL (3.5-5.0); Alkaline Phosphatase 78 U/L (39-117); Anion Gap 13 (12-20); Aspartate Amino Transferase 48 U/L (5-37); Bilirubin Total 0.5 mg/dL (0.0-1.0); Blood Urea Nitrogen 15 mg/dL (9-16); Calcium 9.3 mg/dL (8.4-10.2); Carbon Dioxide 25 mmol/L (22-29); Chloride 108 mmol/L (96-108); Cholesterol 132 mg/dL (<200); Estimated Glomerular Filt Rate > 60; Glucose Fasting 154 mg/dL (60-99); HDL Cholesterol 37 mg/dL (>40); LDL Cholesterol Calculated 63 mg/dL (<100); Potassium 4.5 mmol/L (3.3-5.1); Sodium 141 mmol/L (135-145); Total Protein 7.1 g/dL (6.5-8.0); Triglycerides 163 mg/dL (<150)
[2023-03-10 10:59] LABS: Appearance Urine Clear; Color Urine Yellow; Glucose Urine UA Negative (Negative); Leukocyte Esterase Urine Negative (Negative); Nitrite Urine Negative (Negative); Specific Gravity - Urine 1.015 (1.005-1.025); Urine Blood Negative (Negative); Urine Ketones Negative (Negative); Urine Protein Negative (Neg-Trace)
[2023-03-10 11:43] LABS: Creatinine Urine 95.86 mg/dL; Microalbumin Urine < 5.0 mg/L
== END 2023-03-10 09:09 | disposition home or self-care (01) ==
LOC: HO.LAB 09:08
PROVIDERS: PCP Internal Medicine; Visit Provider Internal Medicine
DX: I48.0 Paroxysmal atrial fibrillation (principal); E78.00 Pure hypercholesterolemia, unspecified; I25.10 Atherosclerotic heart disease of native coronary artery without angina pectoris; N40.0 Benign prostatic hyperplasia without lower urinary tract symptoms; E11.22 Type 2 diabetes mellitus with diabetic chronic kidney disease; N18.9 Chronic kidney disease, unspecified
CPT/HCPCS: 36415; 80053; 80061; 81003; 82043; 82570; 83036; 85025

== ENCOUNTER 2023-03-27 11:56 | Outpatient (REF) | payer MEDICARE, SELFPAY | END 2023-03-27 11:57 | disposition home or self-care (01) | LOC: HO.LAB 11:56 | PROVIDERS: Visit Provider Internal Medicine | DX: Z12.5 Encounter for screening for malignant neoplasm of prostate (principal) | CPT/HCPCS: 36415; 84153 ==

== ENCOUNTER → 2023-05-02 09:48 | Outpatient (REF) | payer MEDICARE, SELFPAY ==
--- NOTE | 2023-05-02 09:51 | CA_ITS ---
Transthoracic Echocardiogram Patient (Last, First, Middle): Toney Martinez, Gender: Male Date of : 1945 Age: 78 Procedure Date: 05/02/2023 Procedure Type: Transthoracic Echocardiogram Location: OP Height: 177.8 cm Weight: 98.88 kg BSA: 2.17 m2 Heart Rate: 68 bpm BP: 142 / 70 mmHg Hand Cigar Maker: ALTHEA Referring MD: Louie Bustamante MD Disbursing Agent: Louie Bustamante MD Symptoms: I48.0 - Paroxysmal atrial fibrillation Study Quality: Adequate w contrast ECG Rhythm: Sinus Conclusions: - 1. Technically limited study despite use of contrast agent 2. Normal LV ejection fraction of 65-70% with pseudonormal filling pattern 3. Calcific changes noted in aortic valve with normal cardiac valvular Dopplers 4. Mildly dilated ascending aorta at 3.8 cm Findings Procedure Information Contrast agent, definity, is being given per protocol without apparent complications. The quality of the study was technically difficult. The study quality is limited by patients body habitus. Left Ventricle Normal left ventricular cavity size. The left ventricular systolic function is normal. The visually estimated ejection fraction is between 65-70%. Spectral Doppler is indicative of a pseudonormal filling pattern. E/E prime ratio is between 8 and 15 consistent with indeterminate filling pressures. Right Ventricle The right ventricle was not well visualized. Atria The left atrium was not well visualized. Interatrial shunt cannot be excluded. The right atrium was not well visualized. Aortic Valve The aortic valve was not well visualized. There is mild calcification of the aortic valve. There is no aortic valve stenosis. There is no aortic valve regurgitation. Mitral Valve The mitral valve was not well visualized. There is mild mitral annular calcification. There is no mitral valve regurgitation. There is no mitral valve stenosis. Pulmonic Valve The pulmonic valve was not well visualized. Tricuspid Valve The tricuspid valve was not well visualized. Tricuspid regurgitation envelope is inadequate for calculation of right ventricular systolic pressure. Indeterminate right atrial pressure. Great Vessels The aorta was not well visualized. The pulmonary artery was not well visualized. There is mild dilatation of the ascending aorta measuring 3.80 cm. Venous The inferior vena cava was not well visualized. Pericardium/Pleural The pericardium was not well visualized. Prior Study Comparison No significant change compared to prior study dated: 01/23/2021. Measurements 2D Linear Measurements IVSd: 0.80 0.6-0.9/0.6-1.0 cm LVIDd: 5.92 3.9-5.3/4.2-5.9 cm LVIDd Index: 2.73 2.4-3.2/2.2-3.1 cm/m2 LVIDs: 3.70 2.0-3.6 cm LVPWd: 0.73 0.7-1.1 cm LA Diam: 4.30 2.7-3.8/3.0-4.0 cm LAIDs Index: 1.98 1.5-2.3 cm/m2 LV Mass: 215.13 67-162/88-224 g LV Mass Index: 99.14 43-95/49-115 g/m2 LVOT Diam: 2.20 3.0+(-)1.3 cm 2D Systolic Function EF 4C: 75.60 >55% EF 2C: 59.60 >55% EF BiP: 67.40 >55% Mitral Valve MV Pk E: 0.84 MV PK A: 0.43 MV Decel Time: 191.00 E/A: 2.00 E'Lateral: 8.05 E'Medial: 5.98 E/E' Med: 14.00 E/E' Lat: 10.40 PHT: 56.00 MVA PHT: 3.93 Decel [place]: 4.39 Aortic Valve AoV Pk Eric: 0.87 AoV Pk Grad: 3.00 KATELIN: 3.29 LVOT LVOT Pk Eric: 0.76 LVOT Mn Eric: 0.59 LVOT VTI: 0.16 LVOT Pk Grad: 2.00 LVOT Mn Grad: 1.00 LVOT Diam: 2.20 LVOT Area: 3.80 Diastolic Function MV Pk E: 0.84 MV Pk A: 0.43 E/A: 2.00 E'Medial: 5.98 E/E' Med: 14.00 E' Laterial: 8.05 E/E' Lat: 10.40 Right Ventricle TAPSE (mm): 17.50 TVS' Eric: 9.90 Tricuspid Valve RA Press: 3.00 Great Vessels Aorta Sinus of Valsalva: 4.10 2.0-3.5 cm Ao Asc: 3.80 2.1-3.4 cm Pulmonary Valve PV Pk Eric: 0.74 Peak PV Grad: 2.00 NV Pk Eric: 1.72 Updated in Other Vendor System with Status of Final Louie Bustamante MD electronically signed on 05/03/2023 10:32:08 AM with status of Final
== END ==
LOC: HO.CARD 09:48
PROVIDERS: PCP Internal Medicine; Visit Provider Internal Medicine Cardiovascular Disease
DX: I48.0 Paroxysmal atrial fibrillation (principal)
CPT/HCPCS: 93306; Q9957

== ENCOUNTER → 2023-05-02 09:51 | Outpatient (BNV) | payer MEDICARE, SELFPAY | PROVIDERS: PCP Internal Medicine; Visit Provider Internal Medicine Cardiovascular Disease | DX: I34.81 Nonrheumatic mitral (valve) annulus calcification (principal) | CPT/HCPCS: 93306 ==

== ENCOUNTER 2023-05-15 09:46 | Outpatient (AMB) | payer MEDICARE, SELFPAY ==
--- NOTE | 2023-05-15 09:49 | MHC.OFFVIS ---
Intake Vital Signs 05/15/23 09:50 Height 5 ft 10 in Weight 222 lb 10.67 oz BMI 31.9 BP 124/66 Blood Pressure Location Lt brachial Position Sitting Pulse 71 Intake Visit Reasons: 1 yr f/up echo/ w/ ekg Intake Note: 1 year follow-up with ekg after echo feeling good Filler Leaf Cutter Long Required: No Allergies abacavir [From ZIAGEN] Allergy (Intermediate, Verified 11/27/22 10:29) MOVES FAT IN BODY nevirapine [From Viramune] Allergy (Intermediate, Verified 11/27/22 10:29) HIGH TEMP-WILLA JOHNSONS SYNDROME Medication List - Last Reconciled 05/15/23 by Louie Bustamante MD albuterol sulfate 90 mcg/actuation 2 puffs inhalation Q4-6H PRN alprazolam 0.25 mg PO BID PRN atorvastatin 40 mg PO DAILY cholecalciferol (vitamin D3) 50 mcg PO DAILY dronedarone (Multaq) 400 mg PO BID efavirenz 600 mg PO BEDTIME emtricitabine-tenofovir alafen 200-25 mg 1 tab PO DAILY ergocalciferol (vitamin D2) 2,000 units PO DAILY gabapentin 300 mg PO BID loperamide 2 mg PO Q6H PRN metoprolol succinate ER 50 mg PO DAILY multivitamin,le-xiqm-snyvvmem (Complete Multivitamin tablet) 1 tab PO DAILY omeprazole 20 mg PO BID raltegravir 400 mg PO BID rivaroxaban 20 mg PO DAILY terazosin 5 mg PO BEDTIME 90 days tramadol 50 mg PO Q6H PRN trimethoprim 100 mg PO DAILY 90 days vitamin B complex (B Complex-Vitamin B12 tablet) 1 tab PO DAILY HPI HPI Comments History of Present Illness Details Toney comes for follow-up. He has been noticing more symptoms of atrial fibrillation intermittently maybe once every month or 2. He notices symptoms of dizziness and not feeling in balance and checks his pulse and is usually in atrial fibrillation. Symptoms last for an hour and then would come back in 3-4 hours and last for a day. However the symptoms are not life-limiting. He denies any full syncopal episodes. No bleeding issues or neurologic events. Takes all his medications. FORMERLY [facility], 1928–1983 Medical History History of seizure HIV positive Paroxysmal atrial fibrillation History of cardioversion HTN (hypertension) Bilateral carotid artery disease Persistent atrial fibrillation Surgical History Hx of tonsillectomy History of surgical removal of ganglion cyst Hx of colonoscopy History of carotid endarterectomy (08/17/18) Hx of cholecystectomy Family History Father Stroke Mother No problems noted. Social History Are you a primary critical care physician to a significant other at home: No Do you presently have visiting nurse or other home services: No Patient Tobacco Use Status: Former Tobacco user Quit Date: Tobacco use type: Cigarette Second Hand Smoke Exposure: No Advance Directives Date on File: 01/26/20 Review of Systems Const Denies chills, Denies fatigue, Denies fever(s), Denies frequent falls, Denies weakness, Denies weight gain and Denies weight loss ENT Denies dizziness Card Denies chest pain, Denies leg edema, Denies lightheadedness, Denies palpitations, Denies dyspnea, Denies dyspnea on exertion, Denies orthopnea and Denies other (loss of consciousness) Resp Denies cough, Denies dyspnea and Denies dyspnea on exertion GI Denies hematochezia and Denies change in stool character Musc Denies abnormal gait, Denies muscle weakness, Denies numbness, Denies radiating pain into limb and Denies tingling Neuro Denies abnormal gait, Denies dizziness, Denies frequent falls, Denies numbness, Denies tingling and Denies weakness Endo Denies fatigue and Denies palpitations Physical Exam Vital Signs: Last Vital Signs Pulse 71 05/15/23 09:50 BP 124/66 05/15/23 09:50 BMI result Body Mass Index 31.9 Const General: cooperative, comfortable, no acute distress, alert and awake Nutritional Appearance: obese Orientation/consciousness: patient oriented x3 Limitations: no limitations Neck Neck: Yes trachea midline, Yes supple and Yes no JVD Resp Effort & Inspection: normal respiratory effort Auscultation: clear to auscultation bilaterally Cardio Jugular venous distension: no JVD Palpation: normal PMI Rate: regular rate Rhythm: regular rhythm Heart sounds: S1 normal heart sound present and S2 normal heart sound present GI Auscultation: normal bowel sounds Skin General skin exam: no rashes or lesions noted Neuro General: patient oriented x3 and no focal motor deficits Extrem General: Yes no clubbing, cyanosis or edema Psych Appearance: grossly normal Office Procedures EKG Details: Normal sinus rhythm with first-degree AV block with nonspecific ST abnormality with [place] QT interval [id number], Complete Assessment & Plan Assessment & Plan (1) Paroxysmal atrial fibrillation: Code(s): I48.0 - Paroxysmal atrial fibrillation Plan: Highly symptomatic paroxysmal atrial fibrillation with somewhat increased burden although not life-limiting. He notices and recognizes his symptoms. Will continue to monitor clinically. He is advised to call me with worsening symptoms and or increased burden and or persistent atrial fibrillation that may require further intervention and/or change in therapy. However otherwise he is done well with rhythm control approach with dronedarone. Continue the same. Continue EKG every 3 months. Continue metoprolol therapy. Continue full oral anticoagulation, currently on Xarelto 20 mg daily. Semi annual renal function test should be pursued. (2) HTN (hypertension): Code(s): I10 - Essential (primary) hypertension Plan: Hypertension which is currently well optimized advised to monitor blood pressure at home maintain a log. Goal blood pressure less than 130/84. Low-salt diet was discussed. Advised to continue maintain activity level as tolerated and participate in weight loss program. He has carotid disease being followed by vascular surgery. Should be on statin therapy which she is on high-intensity with target goal LDL closer to 60 mg/dL. Currently on full oral anticoagulation and avoid antiplatelet agent to reduce bleeding risk. Follow up in the clinic in 3 months for EKG in 6 months with me. Thank you for allowing me to partake in his care Coding Level of Care Code Est Pt Level 4 (91267) Diagnoses Paroxysmal atrial fibrillation I48.0 HTN (hypertension) I10 CPT Codes EKG - CPT: 41239-[id number], Complete ([id number])
[2023-05-15 09:50] VITALS: BP 124/66; PULSE 71; BMI 31.9
== END 2023-05-15 10:27 | disposition home or self-care (01) ==
PROVIDERS: Visit Provider Internal Medicine Cardiovascular Disease
DX: I48.0 Paroxysmal atrial fibrillation (principal); I10 Essential (primary) hypertension
CPT/HCPCS: 93010; 99214

== ENCOUNTER → 2023-05-15 09:46 | Outpatient (BNVA) | payer MEDICARE, SELFPAY | PROVIDERS: Visit Provider Internal Medicine Cardiovascular Disease | DX: I48.0 Paroxysmal atrial fibrillation (principal); I10 Essential (primary) hypertension | CPT/HCPCS: 93005; 99212 ==

== ENCOUNTER 2023-05-21 09:43 | Outpatient (REF) | payer MEDICARE, SELFPAY ==
--- NOTE | ~2023-05-21 | US_ITS ---
EXAMINATION: US EXTRACRANIAL CAROTID DUPLEX, BILATERAL CLINICAL INFORMATION: Occlusion and stenosis of bilateral carotid arteries. COMPARISON: Carotid ultrasound 05/22/2022. TECHNIQUE: Real-time ultrasound and Doppler techniques (integrating B-mode 2-D vascular images, Doppler spectral analysis and color-flow Doppler imaging) were utilized to interrogate the extracranial carotid arteries, the vertebral arteries and proximal subclavian arteries bilaterally. The degree of stenosis is determined by criteria similar to NASCET. FINDINGS: Right Side: 1. There is moderate atherosclerotic plaque seen in the bifurcation/proximal ICA region. 2. The common carotid artery PSV proximally is 95 cm/s and distally 83 cm/s. 3. The proximal internal carotid artery velocities are 149 cm/s systolic and 39 cm/s diastolic. 4. The proximal external carotid artery PSV is 99 cm/s. 5. The vertebral artery shows antegrade flow. 6. The subclavian artery waveforms are normal. Left Side: 1. There is mild atherosclerotic plaque seen in the bifurcation/proximal ICA region. 2. The common carotid artery PSV proximally is 134 cm/s and distally 140 cm/s. 3. The proximal internal carotid artery velocities are 133 cm/s systolic and 49 cm/s diastolic. 4. The proximal external carotid artery PSV is 177 cm/s. 5. The vertebral artery shows antegrade flow. 6. The subclavian artery waveforms are normal. US/US carotid duplex BI IMPRESSION: 1. RIGHT: Moderate, hemodynamically significant stenosis of the proximal right internal carotid artery corresponding to a 50-79% stenosis by velocity criteria. 2. LEFT: Moderate, hemodynamically significant stenosis of the proximal left internal carotid artery corresponding to a 50-79% stenosis by velocity criteria. 3. There is no change in the category severity of disease when compared to the previous study dated 05/22/2022.
== END 2023-05-21 09:44 | disposition home or self-care (01) ==
LOC: HO.US 09:43
PROVIDERS: PCP Internal Medicine; Visit Provider Surgery Vascular Surgery
DX: I65.23 Occlusion and stenosis of bilateral carotid arteries (principal)
CPT/HCPCS: 93880

== ENCOUNTER 2023-06-10 09:50 | Outpatient (AMB) | payer MEDICARE, SELFPAY ==
--- NOTE | 2023-06-10 10:02 | A.OFFVIS_ITS ---
Intake Vital Signs 06/10/23 10:04 06/10/23 10:10 06/10/23 10:11 Height 5 ft 10 in 5 ft 10 in Weight 222 lb 222 lb BMI 31.9 31.9 BP 90/48 L 98/50 L Blood Pressure Location Lt brachial Rt brachial Position Sitting Sitting Intake Visit Reasons: 1 yr follow up carotid US 05/21/23 Intake Note: 1 yr follow up carotid US 05/21/23. Patient states he is having some dizziness , believes its after taking his heart medicine. Hx of left CEA on 08/17/2018. Allergies abacavir [From ZIAGEN] Allergy (Intermediate, Verified 06/10/23 10:08) MOVES FAT IN BODY nevirapine [From Viramune] Allergy (Intermediate, Verified 06/10/23 10:08) HIGH TEMP-WILLA JOHNSONS SYNDROME HPI 1 yr follow up carotid US 05/21/23 HPI Details Very pleasant 78-year-old gentleman presents for routine carotid surveillance. We had actually done his left carotid endarterectomy nearly 5 years ago. Appears to be doing relatively well. Actually his voice is improving as he continues to seeing. He is currently being maintained on Xarelto and a statin. He now presents for routine surveillance follow-up. [facility] Medical History History of seizure HIV positive Paroxysmal atrial fibrillation History of cardioversion HTN (hypertension) Bilateral carotid artery disease Persistent atrial fibrillation Surgical History Hx of tonsillectomy History of surgical removal of ganglion cyst Hx of colonoscopy History of carotid endarterectomy (08/17/18) Hx of cholecystectomy Family History Father Stroke Mother No problems noted. Social History Are you a primary rn medicare to a significant other at home: No Do you presently have visiting nurse or other home services: No Patient Tobacco Use Status: Former Tobacco user Quit Date: Tobacco use type: Cigarette Second Hand Smoke Exposure: No Advance Directives Date on File: 01/26/20 Review of Systems Const All systems reviewed & are unremarkable except as noted in HPI and below Reports no additional complaints ENT Reports Normal hearing present Card Denies chest pain, Denies chest pain at rest, Denies chest pain with activity and Denies pedal edema Resp Denies cough GI Denies abdominal pain Musc Denies abnormal gait, Denies muscle cramps and Denies radiating pain into limb Skin/Breast Denies skin ulcer and Denies wounds Neuro Reports Normal hearing present and Denies abnormal gait Psych Reports no additional complaints Physical Exam Vital Signs: Last Vital Signs BP 98/50 L 06/10/23 10:11 BMI result Body Mass Index 31.9 Const General: cooperative, healthy appearing and comfortable Orientation/consciousness: oriented to person, oriented to place and oriented to time HEENT Head: Yes normal to inspection Neck Neck: Yes normal visual inspection Carotids: no bruits Chest Chest palpation & inspection: normal inspection of the chest Resp Effort & Inspection: normal respiratory effort and able to speak in complete sentences Auscultation: clear to auscultation bilaterally, no crackles, no rales, no rhonchi and no wheezes Cardio Rate: regular rate Rhythm: regular rhythm Heart sounds: S1 normal heart sound present and S2 normal heart sound present Bruits: no carotid bruits Peripheral pulses: Peripheral pulses 2+ throughout GI Inspection: Yes normal to inspection Skin Wounds: no wounds Hair: normal Neuro General: oriented to person, oriented to place and oriented to time Cranial nerves: Yes CN's II-XII intact bilaterally and Yes Normal hearing presen t Cognition (Neuro): normal cognition Motor exam (neuro): 5/5 motor strength present throughout Extrem Other: venous exam: No significant superficial varicosities or spider telangiectasias, minimal edema General: No clubbing, No cyanosis and No edema Psych Appearance: grossly normal Mental Status: mental status grossly normal Speech and movement: Normal speech and movement present Results Reviewed Results Reviewed: Noninvasive testing dated 05/21/2023 demonstrates bilateral 50-79% stenosis with right peak systolic of 149 and left of 133. I disagree with the left side assessment and believe it should be more of 0-49%. Written report and images were reviewed. Assessment & Plan Assessment & Plan (1) Bilateral carotid artery disease: Comment: Left carotid endarterectomy - 08/17/2018 Code(s): I77.9 - Disorder of arteries and arterioles, unspecified Qualifiers: Carotid artery disease type: stenosis Qualified Code(s): I65.23 - Occlusion and stenosis of bilateral carotid arteries Plan: In short patient has asymptomatic carotid disease. We have reviewed signs and symptoms of a stroke. We also discussed risk factor modification inclusive a healthy diet low in cholesterol. The patient will follow up with us with surveillance ultrasound of the carotids 1 year. Should there be any changes or signs or symptoms of a stroke we will be happy to see them back sooner. Thank you for allowing us to participate in this patient's care. If there are any questions or concerns please do not hesitate to contact us. Orders: Orders US carotid duplex BI 364 Days I65.23 - Occlusion and stenosis of bilateral carotid arteries Coding Level of Care Code Est Pt Level 4 (22162) Diagnoses Bilateral carotid artery stenosis I65.23 Carotid artery disease type: stenosis
[2023-06-10 10:04] VITALS: BMI 31.9
[2023-06-10 10:10] VITALS: BP 90/48; BMI 31.9
[2023-06-10 10:11] VITALS: BP 98/50
== END 2023-06-10 10:27 | disposition home or self-care (01) ==
PROVIDERS: PCP Internal Medicine; Visit Provider Surgery Vascular Surgery
DX: I65.23 Occlusion and stenosis of bilateral carotid arteries (principal)
CPT/HCPCS: 99213

== ENCOUNTER → 2023-06-10 09:50 | Outpatient (BNVA) | payer MEDICARE, SELFPAY | PROVIDERS: PCP Internal Medicine; Visit Provider Surgery Vascular Surgery | DX: I65.23 Occlusion and stenosis of bilateral carotid arteries (principal) | CPT/HCPCS: 99212 ==

== ENCOUNTER 2023-06-16 10:41 | Outpatient (REF) | payer MEDICARE, SELFPAY ==
[2023-06-16 10:54] LABS: MANUAL DIFF FLAG NO
[2023-06-16 11:18] LABS: Basophils Absolute Auto 0.1 X10*3/uL (0.0-0.2); Basophils Percent Auto 1.3 % (0-2); Eosinophils Absolute Auto 0.3 X10*3/uL (0.0-0.4); Eosinophils Percent Auto 3.7 % (0-4); Hematocrit 41.9 % (42.0-52.0); Hemoglobin 14.6 g/dl (14.0-18.0); Imm Gran Abs Auto 0.02 X10*3/uL (0.00-0.03); Imm Gran Pct Auto 0.3 % (0.0-0.4); Lymphocytes Absolute Auto 2.4 X10*3/uL (1.2-4.9); Lymphocytes Percent Auto 34.6 % (20-40); Mean Corpuscular HGB Conc 34.8 g/dl (31.0-36.0); Mean Corpuscular Hemoglobin 31.1 pg (27.0-33.0); Mean Corpuscular Volume 89.3 fL (80.0-98.0); Mean Platelet Volume 10.5 fL (9.4-12.4); Monocytes Absolute Auto 0.5 X10*3/uL (0.1-1.2); Monocytes Percent Auto 7.8 % (2-11); Neutrophils Absolute Auto 3.6 x10*3/uL (2.0-8.3); Neutrophils Percent Auto 52.3 % (45-73); Platelet Count 195 X10*3/uL (160-400); Red Blood Count 4.69 X10*6/uL (4.60-5.80); Red Cell Distribution Width 12.4 % (11.0-16.0); White Blood Count 6.9 X10*3/uL (4.8-10.8)
[2023-06-16 11:30] LABS: Estimated Average Glucose 186 mg/dL; Hemoglobin A1c % 8.1 % (<6.0)
[2023-06-16 11:45] LABS: Alanine Aminotransferase 33 U/L (0-40); Albumin Level 4.1 g/dL (3.5-5.0); Alkaline Phosphatase 77 U/L (39-117); Anion Gap 12 (12-20); Aspartate Amino Transferase 30 U/L (5-37); Bilirubin Total 0.3 mg/dL (0.0-1.0); Blood Urea Nitrogen 17 mg/dL (9-16); Calcium 9.5 mg/dL (8.4-10.2); Carbon Dioxide 25 mmol/L (22-29); Chloride 106 mmol/L (96-108); Estimated Glomerular Filt Rate 55; Glucose Random 188 mg/dL (60-115); Potassium 4.5 mmol/L (3.3-5.1); Sodium 138 mmol/L (135-145); Total Protein 7.1 g/dL (6.5-8.0)
[2023-06-16 15:31] LABS: Creatinine Urine 159.13 mg/dL; Microalbum/Creatinine Ratio Ur 6.9 ug/mg cr (<30)
== END 2023-06-16 10:42 | disposition home or self-care (01) ==
LOC: HO.LAB 10:41
PROVIDERS: PCP Internal Medicine; Visit Provider Internal Medicine
DX: E11.9 Type 2 diabetes mellitus without complications (principal); I48.0 Paroxysmal atrial fibrillation; R05.9 Cough, unspecified; N40.0 Benign prostatic hyperplasia without lower urinary tract symptoms; D64.9 Anemia, unspecified
CPT/HCPCS: 36415; 80053; 82043; 82570; 83036; 85025

== ENCOUNTER 2023-07-01 09:25 | Outpatient (AMB) | payer MEDICARE, SELFPAY ==
--- NOTE | 2023-07-01 09:24 | A.OFFVIS_ITS ---
Intake Intake Visit Reasons: 6 Month Follow Up (Portal Confirmed) Intake Note: Patient presents today for a telehealth follow-up Meds- Tramadol, Trimethoprim Allergies to Antibiotic- No Known Allergies Blood Thinner- None Medical Records Receptionist Required: No Allergies abacavir [From ZIAGEN] Allergy (Intermediate, Verified 07/01/23 09:36) MOVES FAT IN BODY nevirapine [From Viramune] Allergy (Intermediate, Verified 07/01/23 09:36) HIGH TEMP-WILLA JOHNSONS SYNDROME HPI HPI Comments History of Present Illness Details Juan is a pleasant male. He is a patient of Dr. Calloway. He is seen for the following urologic conditions. 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 Social History Are you a primary child care team lead to a significant other at home: No Do you presently have visiting nurse or other home services: No Patient Tobacco Use Status: Former Tobacco user Quit Date: Tobacco use type: Cigarette Second Hand Smoke Exposure: No Advance Directives Date on File: 01/26/20 Review of Systems Const All systems reviewed & are unremarkable except as noted in HPI and below Reports no additional complaints Resp Reports no additional complaints GI Reports no additional complaints Reports as per HPI Musc Reports no additional complaints Physical Exam Telemedicine evaluation Appropriate responses Regular breathing rate and rhythm HEENT Head: Yes normal to inspection Ears: hearing grossly normal bilaterally Eyes General: appearance normal, both eyes and all related structures Neck Neck: Yes normal visual inspection Chest Chest palpation & inspection: normal inspection of the chest Resp Effort & Inspection: normal respiratory effort and able to speak in complete sentences Assessment & Plan Assessment & Plan (1) Bladder cancer: Code(s): C67.9 - Malignant neoplasm of bladder, unspecified (2) Chronic cystitis: Comment: 09/10 one cystoscopy Code(s): N30.20 - Other chronic cystitis without hematuria (3) BPH w urinary obs/LUTS: Code(s): N40.1 - Benign prostatic hyperplasia with lower urinary tract symptoms; N13.8 - Other obstructive and reflux uropathy Plan Six-month follow-up Patient Instructions: Imaging studies, laboratory and physical exam results were discussed and reviewed in detail. No major barriers to patient understanding were identified. An opportunity to ask questions regarding the treatment plan was provided. All questions were answered. The patient expressed understanding and agreement with the above treatment plan. The patient is aware they should contact our office by phone for worsening of their current condition or the appearance of new urologic symptoms. Compliance is encouraged with any medications and followup testing that is ordered. It is a privilege to participate in the urologic care of your patient. If you have any questions or concerns regarding treatment for the above conditions, or other urologic issues, please do not hesitate to contact me. The office telephone contact is [phone]. This note is constructed using voice recognition software. While every effort has been made to ensure accuracy eclectic doctor errors may have been included. Yours sincerely, Dr Ric Beaulieu MD, [facility] - Urology Providers of Expert, Compassionate Care for the Genitourinary System Telehealth Telehealth Location of provider rendering services: practice address Location of patient: address on file Patient Identification confirmed using: Name, : Yes Telehealth method: video Patient verbally consented to treatment: Yes Patient verbally consented to billing insurance company: Yes Patient informed of any privacy concerns related to visit: Yes Coding Level of Care Code Tele Est Pt Level 3 (79952) Diagnoses Bladder cancer C67.9 Chronic cystitis N30.20 BPH w urinary obs/LUTS N40.1; N13.8
== END 2023-07-01 11:48 | disposition home or self-care (01) ==
LOC: HO.HUSH 09:34
PROVIDERS: PCP Internal Medicine; Visit Provider Urology
DX: C67.9 Malignant neoplasm of bladder, unspecified (principal); N40.1 Benign prostatic hyperplasia with lower urinary tract symptoms; N30.20 Other chronic cystitis without hematuria; N13.8 Other obstructive and reflux uropathy
CPT/HCPCS: 99213

== ENCOUNTER → 2023-07-01 09:25 | Outpatient (BNVA) | payer MEDICARE, SELFPAY | PROVIDERS: PCP Internal Medicine; Visit Provider Urology ==

== ENCOUNTER 2023-07-22 11:28 | Outpatient (REF) | payer MEDICARE, SELFPAY ==
[2023-07-22 11:56] LABS: MANUAL DIFF FLAG NO
[2023-07-22 12:16] LABS: Basophils Absolute Auto 0.1 X10*3/uL (0.0-0.2); Basophils Percent Auto 1.4 % (0-2); Eosinophils Absolute Auto 0.1 X10*3/uL (0.0-0.4); Eosinophils Percent Auto 2.6 % (0-4); Hemoglobin 12.4 g/dl (14.0-18.0); Imm Gran Abs Auto 0.01 X10*3/uL (0.00-0.03); Imm Gran Pct Auto 0.2 % (0.0-0.4); Lymphocytes Absolute Auto 1.6 X10*3/uL (1.2-4.9); Lymphocytes Percent Auto 32.1 % (20-40); Mean Corpuscular HGB Conc 34.4 g/dl (31.0-36.0); Mean Corpuscular Hemoglobin 31.2 pg (27.0-33.0); Mean Corpuscular Volume 90.5 fL (80.0-98.0); Mean Platelet Volume 10.1 fL (9.4-12.4); Monocytes Absolute Auto 0.4 X10*3/uL (0.1-1.2); Monocytes Percent Auto 8.5 % (2-11); Neutrophils Absolute Auto 2.8 x10*3/uL (2.0-8.3); Neutrophils Percent Auto 55.2 % (45-73); Platelet Count 207 X10*3/uL (160-400); Red Blood Count 3.98 X10*6/uL (4.60-5.80); Red Cell Distribution Width 12.4 % (11.0-16.0); White Blood Count 5.1 X10*3/uL (4.8-10.8)
[2023-07-22 12:36] LABS: Alanine Aminotransferase 36 U/L (0-40); Albumin Level 3.9 g/dL (3.5-5.0); Alkaline Phosphatase 74 U/L (39-117); Anion Gap 11 (12-20); Aspartate Amino Transferase 35 U/L (5-37); Bilirubin Total 0.3 mg/dL (0.0-1.0); Blood Urea Nitrogen 15 mg/dL (9-16); Calcium 9.2 mg/dL (8.4-10.2); Carbon Dioxide 27 mmol/L (22-29); Chloride 107 mmol/L (96-108); Estimated Glomerular Filt Rate > 60; Glucose Random 186 mg/dL (60-115); Potassium 4.5 mmol/L (3.3-5.1); Sodium 140 mmol/L (135-145); Total Protein 6.6 g/dL (6.5-8.0)
[2023-07-24 10:54] LABS: Absolute CD3 Count 1270 cells/uL (840-3060); Absolute CD4 Count 691 cells/uL (490-1740); Absolute CD8 Count 574 cells/uL (180-1170); Absolute Lymphocytes 1655 cells/uL (850-3900); Percent CD3 Cells 77 % (57-85); Percent CD4 Cells 42 % (30-61); Percent CD8 Cells 35 % (12-42)
[2023-07-25 11:28] LABS: HIV RNA PCR Qn Copies NOT DETECTED copies/mL (NOT DETECTED); HIV RNA PCR Qn Log Copies NOT DETECTED (NOT DETECTED)
== END 2023-07-22 11:29 | disposition home or self-care (01) ==
LOC: HO.LAB 11:28
PROVIDERS: PCP Internal Medicine; Visit Provider Nurse Practitioner
DX: B20 Human immunodeficiency virus [HIV] disease (principal)
CPT/HCPCS: 36415; 80053; 85025; 86359; 86360; 87536

== ENCOUNTER → 2023-08-05 09:33 | Outpatient (BNVA) | payer MEDICARE, SELFPAY | PROVIDERS: PCP Internal Medicine; Visit Provider Internal Medicine Cardiovascular Disease ==

== ENCOUNTER 2023-10-28 10:32 | Outpatient (AMB) | payer MEDICARE, SELFPAY ==
[2023-10-28 10:36] VITALS: BP 138/76; PULSE 73; BMI 31.6
--- NOTE | 2023-10-28 10:36 | MHC.OFFVIS ---
Vital Signs 10/28/23 10:36 Height 5 ft 10 in Weight 220 lb 7.396 oz BMI 31.6 BP 138/76 Blood Pressure Location Lt brachial Position Sitting Pulse 73 Intake Visit Reasons: 6 month fu Intake Note: 6 month follow-up with ekg feeling good Dance Instructor Required: No Allergies abacavir [From ZIAGEN] Allergy (Intermediate, Verified 07/01/23 09:36) MOVES FAT IN BODY nevirapine [From Viramune] Allergy (Intermediate, Verified 07/01/23 09:36) HIGH TEMP-WILLA JOHNSONS SYNDROME Medication List - Last Reconciled 10/28/23 by Louie Bustamante MD albuterol sulfate 90 mcg/actuation 2 puffs inhalation Q4-6H PRN alprazolam 0.25 mg PO BID PRN atorvastatin 40 mg PO DAILY cholecalciferol (vitamin D3) 50 mcg PO DAILY dronedarone (Multaq) 400 mg PO BID efavirenz 600 mg PO BEDTIME emtricitabine-tenofovir alafen 200-25 mg 1 tab PO DAILY ergocalciferol (vitamin D2) 2,000 units PO DAILY gabapentin 300 mg PO BID loperamide 2 mg PO Q6H PRN metoprolol succinate ER 50 mg PO DAILY multivitamin,[id number]-[id number]-raeuffpy (Complete Multivitamin tablet) 1 tab PO DAILY omeprazole 20 mg PO BID raltegravir 400 mg PO BID rivaroxaban 20 mg PO DAILY terazosin 5 mg PO BEDTIME 90 days tramadol 50 mg PO Q6H PRN trimethoprim 100 mg PO DAILY 90 days vitamin B complex (B Complex-Vitamin B12 tablet) 1 tab PO DAILY HPI Comments Details: Toney comes for follow-up. He denies any cardiac symptoms. Remains fairly active. Denies any exertional chest pain or shortness of breath. No heart failure symptoms. Denies any prolonged palpitation irregular heartbeat. Tolerating his medications well. Denies any bleeding issues or neurologic complications. Scheduled for blood test in the near future. [facility] Medical History History of seizure HIV positive Paroxysmal atrial fibrillation History of cardioversion HTN (hypertension) Bilateral carotid artery disease Persistent atrial fibrillation Surgical History Hx of tonsillectomy History of surgical removal of ganglion cyst Hx of colonoscopy History of carotid endarterectomy (08/17/18) Hx of cholecystectomy Family History Father Stroke Mother No problems noted. Social History Are you a primary respiratory care program director to a significant other at home: No Do you presently have visiting nurse or other home services: No Patient Tobacco Use Status: Former Tobacco user Tobacco use type: Cigarette Second Hand Smoke Exposure: No Advance Directives Date on File: 01/26/20 Review of Systems Const Denies chills, Denies fatigue, Denies fever(s), Denies frequent falls, Denies weakness, Denies weight gain and Denies weight loss ENT Denies dizziness Card Denies chest pain, Denies leg edema, Denies lightheadedness, Denies palpitations, Denies dyspnea, Denies dyspnea on exertion, Denies orthopnea and Denies other (loss of consciousness) Resp Denies cough, Denies dyspnea and Denies dyspnea on exertion GI Denies hematochezia and Denies change in stool character Musc Denies abnormal gait, Denies muscle weakness, Denies numbness, Denies radiating pain into limb and Denies tingling Neuro Denies abnormal gait, Denies dizziness, Denies frequent falls, Denies numbness, Denies tingling and Denies weakness Endo Denies fatigue and Denies palpitations Physical Exam Vital Signs: Last Vital Signs Pulse 73 10/28/23 10:36 BP 138/76 10/28/23 10:36 BMI result Body Mass Index 31.6 Const General: cooperative, comfortable, no acute distress, alert and awake Nutritional Appearance: obese Orientation/consciousness: patient oriented x3 Limitations: no limitations Neck Neck: Yes trachea midline, Yes supple and Yes no JVD Resp Effort & Inspection: normal respiratory effort Auscultation: clear to auscultation bilaterally Cardio Jugular venous distension: no JVD Palpation: normal PMI Rate: regular rate Rhythm: regular rhythm Heart sounds: S1 normal heart sound present and S2 normal heart sound present GI Auscultation: normal bowel sounds Skin General skin exam: no rashes or lesions noted Neuro General: patient oriented x3 and no focal motor deficits Extrem General: Yes no clubbing, cyanosis or edema Psych Appearance: grossly normal Office Procedures EKG Details: EKG shows normal sinus rhythm with first-degree AV block with normal intervals [id number], Complete Assessment & Plan Assessment & Plan (1) Paroxysmal atrial fibrillation: Code(s): I48.0 - Paroxysmal atrial fibrillation Category: Medical Plan: Paroxysmal atrial fibrillation has been suppressed since ablation on Multaq therapy. Has done well on Multaq therapy. Continue the same. Continue concomitant metoprolol therapy. Tolerating both therapy well. Continue avoid stimulants. Advised to call me with new symptoms. Continue aggressive risk factor modification. Participate in weight loss program and losing weight will help to reduce risk of recurrent atrial fibrillation. Continue full oral anticoagulation, currently on Xarelto 20 mg daily. Semi annual renal function test should be pursued. CHADSVASC score of 5 (2) HTN (hypertension): Code(s): I10 - Essential (primary) hypertension Category: Medical Plan: Hypertension which is currently well optimized advised to monitor blood pressure at home maintain a log. Goal blood pressure less than 130/84. Continue aggressive diabetes management. Continue high-intensity statin therapy given bilateral carotid disease target goal LDL closer to 60 mg/dL. Following with vascular surgery for the same. Will follow up in the clinic in 1 year's time, sooner p.r.n.. Thank you for allowing me to partake in his care Coding Level of Care Code Est Pt Level 4 (33509) Diagnoses Paroxysmal atrial fibrillation I48.0 HTN (hypertension) I10 CPT Codes EKG - CPT: 82093-Yfstbegaspylvorwe, Complete ([id number])
== END 2023-10-28 11:19 | disposition home or self-care (01) ==
PROVIDERS: PCP Internal Medicine; Visit Provider Internal Medicine Cardiovascular Disease
DX: I48.0 Paroxysmal atrial fibrillation (principal); I10 Essential (primary) hypertension
CPT/HCPCS: 93010; 99214

== ENCOUNTER 2023-10-28 10:32 | Outpatient (REF) | payer MEDICARE, SELFPAY ==
[2023-10-28 11:19] LABS: MANUAL DIFF FLAG NO
[2023-10-28 11:42] LABS: Basophils Absolute Auto 0.1 X10*3/uL (0.0-0.2); Basophils Percent Auto 0.9 % (0-2); Eosinophils Absolute Auto 0.1 X10*3/uL (0.0-0.4); Eosinophils Percent Auto 2.4 % (0-4); Hematocrit 38.4 % (42.0-52.0); Hemoglobin 13.5 g/dl (14.0-18.0); Imm Gran Abs Auto 0.02 X10*3/uL (0.00-0.03); Imm Gran Pct Auto 0.4 % (0.0-0.4); Lymphocytes Absolute Auto 1.6 X10*3/uL (1.2-4.9); Lymphocytes Percent Auto 28.4 % (20-40); Mean Corpuscular HGB Conc 35.2 g/dl (31.0-36.0); Mean Corpuscular Hemoglobin 32.3 pg (27.0-33.0); Mean Corpuscular Volume 91.9 fL (80.0-98.0); Mean Platelet Volume 10.3 fL (9.4-12.4); Monocytes Absolute Auto 0.4 X10*3/uL (0.1-1.2); Monocytes Percent Auto 7.5 % (2-11); Neutrophils Absolute Auto 3.3 x10*3/uL (2.0-8.3); Neutrophils Percent Auto 60.4 % (45-73); Platelet Count 194 X10*3/uL (160-400); Red Blood Count 4.18 X10*6/uL (4.60-5.80); Red Cell Distribution Width 12.1 % (11.0-16.0); White Blood Count 5.5 X10*3/uL (4.8-10.8)
[2023-10-28 11:53] LABS: Estimated Average Glucose 171 mg/dL; Hemoglobin A1c % 7.6 % (<6.0)
[2023-10-28 12:17] LABS: Creatinine Urine 167.82 mg/dL; Microalbum/Creatinine Ratio Ur 6.5 ug/mg cr (<30)
[2023-10-28 12:26] LABS: Alanine Aminotransferase 41 U/L (0-40); Albumin Level 4.3 g/dL (3.5-5.0); Alkaline Phosphatase 81 U/L (39-117); Anion Gap 12 (12-20); Aspartate Amino Transferase 51 U/L (5-37); Bilirubin Total 0.5 mg/dL (0.0-1.0); Blood Urea Nitrogen 13 mg/dL (9-16); Calcium 9.6 mg/dL (8.4-10.2); Carbon Dioxide 23 mmol/L (22-29); Chloride 108 mmol/L (96-108); Estimated Glomerular Filt Rate > 60; Glucose Random 148 mg/dL (60-115); Potassium 4.3 mmol/L (3.3-5.1); Sodium 139 mmol/L (135-145); Total Protein 7.1 g/dL (6.5-8.0)
== END 2023-10-28 10:33 | disposition home or self-care (01) ==
LOC: HO.LAB 10:32
PROVIDERS: Absent Provider Internal Medicine; PCP Internal Medicine; Visit Provider Internal Medicine Cardiovascular Disease
DX: E11.9 Type 2 diabetes mellitus without complications (principal); I48.0 Paroxysmal atrial fibrillation; N18.9 Chronic kidney disease, unspecified; I10 Essential (primary) hypertension
CPT/HCPCS: 36415; 80053; 82043; 82570; 83036; 85025; 93005; 99212

== ENCOUNTER 2023-12-31 10:35 | Outpatient (AMB) | payer MEDICARE, SELFPAY ==
--- NOTE | 2023-12-31 10:54 | A.OFFVIS_ITS ---
Intake Visit Reasons: 6m/PVR Intake Note: Patient is Present for PVR Urology Med: Terazosin Antibiotic Allergy:None Blood Thinner: Rivaroxaban (Xarelto) Recent PSA- 03/2023- 2.20 Recent H. A1C- 10/28/23- 7.6 Last PVR: 34 Todays PVR: 37 Machine Engineer Required: No Accompanied by: Self / Same As Patient Allergies abacavir [From ZIAGEN] Allergy (Intermediate, Verified 12/31/23 11:00) MOVES FAT IN BODY nevirapine [From Viramune] Allergy (Intermediate, Verified 12/31/23 11:00) HIGH TEMP-WILLA JOHNSONS SYNDROME HPI Comments Details: Juan is a pleasant male. He is a patient of Dr. Calloway. He is seen for the following urologic conditions. 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 Social History Are you a primary women's health care nurse practitioner to a significant other at home: No Do you presently have visiting nurse or other home services: No Patient Tobacco Use Status: Former Tobacco user Tobacco use type: Cigarette Second Hand Smoke Exposure: No Advance Directives Date on File: 01/26/20 Review of Systems Const Denies chills and Denies fever(s) Card Reports no additional complaints and Denies syncope Resp Denies cough GI Denies abdominal pain and Denies heartburn Reports as per HPI and Denies change in libido Neuro Denies syncope Psych Denies change in libido Endo Denies change in libido Physical Exam Const General: cooperative, healthy appearing, comfortable and no acute distress Orientation/consciousness: patient oriented x3 HEENT Face and sinus: Yes normal facial exam Mouth: moist mucous membranes Neck Neck: Yes normal visual inspection, Yes full ROM and Yes trachea midline Chest Chest palpation & inspection: normal inspection of the chest Resp Effort & Inspection: normal respiratory effort, able to speak in complete sentences and no respiratory distress GI Inspection: Yes normal to inspection Back/Spine/Pelvis Cervical Spine: normal cervical lordosis Thoracic/Lumbar Spine: thoracic and lumbar spine normal to inspection Skin General skin exam: no rashes or lesions noted Neuro General: patient oriented x3, gait normal, tone normal and moves all extremities Extrem General: Yes normal to inspection and Yes capillary refill normal Office Procedures Post Void Residual Post Residual Void Post Void Residual (PVR): 37 [id number] Void Residual by ultrasound Results AMB Urinalysis, Automated UA Leukoctes 0 Yosvany/uL Last Edit by Salud Chavarria [facility] on 12/31/23 11:10 UA Nitrite Negative Last Edit by Salud Chavarria [facility] on 12/31/23 11:10 UA Urobilinogen 0.2 mg/dL Last Edit by Salud Chavarria [facility] on 12/31/23 11:1 0 UA Protein 15 mg/dL Last Edit by Salud Chavarria [facility] on 12/31/23 11:10 UA pH 6.5 Last Edit by aSlud Chavarria [facility] on 12/31/23 11:10 UA Blood 0 Jarvis/uL Last Edit by Salud Chavarria [facility] on 12/31/23 11:10 UA Specific [place] 1.015 Last Edit by Salud Chavarria [facility] on 12/31/23 11: 10 UA Ketone Negative Last Edit by Salud Chavarria [facility] on 12/31/23 11:10 UA Bilirubin 0 mg/dL Last Edit by Salud Chavarria [facility] on 12/31/23 11:10 UA Glucose 0 mg/dL Last Edit by Salud Chavarria [facility] on 12/31/23 11:10 Results Reviewed Results Reviewed: Laboratory Last Values Urine pH (Auto) 6.5 12/31/23 11:07 Specific [place] (Auto) 1.015 12/31/23 11:07 Urine Protein (Auto) 15 mg/dL 12/31/23 11:07 Glucose (UA)(Auto) 0 mg/dL 12/31/23 11:07 Urine Ketones (Auto) Negative 12/31/23 11:07 Urine Blood (Auto) 0 Jarvis/uL 12/31/23 11:07 Urine Nitrite (Auto) Negative 12/31/23 11:07 Urine Bilirubin (Auto) 0 mg/dL 12/31/23 11:07 Urine Urobilinogen (Auto) 0.2 mg/dL 12/31/23 11:07 Leukocyte Esterase (Auto) 0 Yosvany/uL 12/31/23 11:07 Assessment & Plan Assessment & Plan (1) Chronic cystitis: Comment: 09/10 one cystoscopy Code(s): N30.20 - Other chronic cystitis without hematuria Category: Medical (2) Overactive bladder: Code(s): N32.81 - Overactive bladder Category: Medical (3) BPH w urinary obs/LUTS: Code(s): N40.1 - Benign prostatic hyperplasia with lower urinary tract symptoms; N13.8 - Other obstructive and reflux uropathy Category: Medical Plan Six-month follow-up lab work Orders: Orders AMB Urinalysis Automated Today C67.9 - Malignant neoplasm of bladder, unspecified, Z13.9 - Encounter for screening, unspecified AMB Post Void Residual by ultrasound Today N13.8 - Other obstructive and reflux uropathy, N40.1 - Benign prostatic hyperplasia with lower urinary tract symptoms Urine Cytology Today C67.9 - Malignant neoplasm of bladder, unspecified Prostate Specific Antigen 6 Months N13.8 - Other obstructive and reflux uropathy, N40.1 - Benign prostatic hyperplasia with lower urinary tract symptoms Patient Instructions: Imaging studies, laboratory and physical exam results were discussed and reviewed in detail. No major barriers to patient understanding were identified. An opportunity to ask questions regarding the treatment plan was provided. All questions were answered. The patient expressed understanding and agreement with the above treatment plan. The patient is aware they should contact our office by phone for worsening of their current condition or the appearance of new urologic symptoms. Compliance is encouraged with any medications and followup testing that is ordered. It is a privilege to participate in the urologic care of your patient. If you have any questions or concerns regarding treatment for the above conditions, or other urologic issues, please do not hesitate to contact me. The office telephon e contact is [phone]. This note is constructed using voice recognition software. While every effort has been made to ensure accuracy federal court of appeals law clerk errors may have been included. Yours sincerely, Dr Ric Beaulieu MD, [facility] - Urology Providers of Expert, Compassionate Care for the Genitourinary System Coding Level of Care Code Est Pt Level 3 (57199) Diagnoses Chronic cystitis N30.20 Overactive bladder N32.81 BPH w urinary obs/LUTS N40.1; N13.8 CPT Codes Post Residual Void - PVR CPT Code: 33651-Vkfo Void Residual by ultrasound ([id number])
== END 2023-12-31 11:45 | disposition home or self-care (01) ==
PROVIDERS: PCP Internal Medicine; Visit Provider Urology
DX: N30.20 Other chronic cystitis without hematuria (principal); N32.81 Overactive bladder; N40.1 Benign prostatic hyperplasia with lower urinary tract symptoms; N13.8 Other obstructive and reflux uropathy; Z13.9 Encounter for screening, unspecified; C67.9 Malignant neoplasm of bladder, unspecified
CPT/HCPCS: 99213

== ENCOUNTER 2023-12-31 10:35 | Outpatient (REF) | payer MEDICARE, SELFPAY ==
[2023-12-31 16:51] LABS: Urine Cytology See Pathology rpt
== END 2023-12-31 10:36 | disposition home or self-care (01) ==
LOC: HO.LAB 10:35
PROVIDERS: PCP Internal Medicine; Visit Provider Urology
DX: C67.9 Malignant neoplasm of bladder, unspecified (principal); N40.1 Benign prostatic hyperplasia with lower urinary tract symptoms; N13.8 Other obstructive and reflux uropathy; N32.81 Overactive bladder; N30.20 Other chronic cystitis without hematuria; Z79.899 Other long term (current) drug therapy
CPT/HCPCS: 51798; 81003; 88112; 99212

== ENCOUNTER 2024-01-28 10:06 | Outpatient (AMB) | payer MEDICARE, SELFPAY ==
--- NOTE | 2024-01-28 10:10 | AM.OFFVISNUR ---
Intake Visit Reasons: ekg Allergies abacavir [From ZIAGEN] Allergy (Intermediate, Verified 12/31/23 11:00) MOVES FAT IN BODY nevirapine [From Viramune] Allergy (Intermediate, Verified 12/31/23 11:00) HIGH TEMP-WILLA JOHNSONS SYNDROME Nursing Note pt is here for nurse visit with ekg pt is on multaq 400 mg PO BID ekg left on Dr SANCHEZ for review Office Procedures EKG [id number], Complete
== END 2024-01-28 10:22 | disposition home or self-care (01) ==
PROVIDERS: PCP Internal Medicine; Visit Provider Internal Medicine Cardiovascular Disease
DX: I44.0 Atrioventricular block, first degree (principal)
CPT/HCPCS: 93010

== ENCOUNTER 2024-01-28 10:06 | Outpatient (REF) | payer MEDICARE, SELFPAY ==
[2024-01-28 11:04] LABS: MANUAL DIFF FLAG NO
[2024-01-28 11:53] LABS: Eosinophils Absolute Auto 0.1 X10*3/uL (0.0-0.4); Eosinophils Percent Auto 2.8 % (0-4); Imm Gran Abs Auto 0.01 X10*3/uL (0.00-0.03); Imm Gran Pct Auto 0.3 % (0.0-0.4); Lymphocytes Absolute Auto 1.1 X10*3/uL (1.2-4.9); Lymphocytes Percent Auto 28.1 % (20-40); Mean Corpuscular HGB Conc 34.3 g/dl (31.0-36.0); Mean Corpuscular Volume 90.4 fL (80.0-98.0); Mean Platelet Volume 10.7 fL (9.4-12.4); Monocytes Absolute Auto 0.4 X10*3/uL (0.1-1.2); Neutrophils Absolute Auto 2.3 x10*3/uL (2.0-8.3); Neutrophils Percent Auto 58.8 % (45-73); Platelet Count 178 X10*3/uL (160-400); Red Blood Count 3.87 X10*6/uL (4.60-5.80); Red Cell Distribution Width 12.5 % (11.0-16.0); White Blood Count 3.9 X10*3/uL (4.8-10.8)
[2024-01-28 12:22] LABS: Alanine Aminotransferase 36 U/L (0-40); Albumin Level 4.2 g/dL (3.5-5.0); Alkaline Phosphatase 70 U/L (39-117); Anion Gap 9 (12-20); Aspartate Amino Transferase 40 U/L (5-37); Bilirubin Total 0.3 mg/dL (0.0-1.0); Blood Urea Nitrogen 18 mg/dL (9-16); Calcium 8.9 mg/dL (8.4-10.2); Carbon Dioxide 23 mmol/L (22-29); Chloride 111 mmol/L (96-108); Estimated Glomerular Filt Rate > 60; Glucose Random 143 mg/dL (60-115); Potassium 4.3 mmol/L (3.3-5.1); Sodium 139 mmol/L (135-145); Total Protein 6.7 g/dL (6.5-8.0)
[2024-01-30 05:14] LABS: HIV RNA PCR Qn Copies 21 copies/mL (NOT DETECTED); HIV RNA PCR Qn Log Copies 1.32 (NOT DETECTED)
[2024-02-01 02:14] LABS: Absolute CD4 Count 558 cells/uL (490-1740); Absolute CD8 Count 392 cells/uL (180-1170); Absolute Lymphocytes 1238 cells/uL (850-3900); CD4 CD8 Ratio 1.42 (0.86-5.00); Percent CD4 Cells 45 % (30-61); Percent CD8 Cells 32 % (12-42)
== END 2024-01-28 10:07 | disposition home or self-care (01) ==
LOC: HO.LAB 10:06
PROVIDERS: Nurse Practitioner; PCP Internal Medicine; Visit Provider Internal Medicine Cardiovascular Disease
DX: B20 Human immunodeficiency virus [HIV] disease (principal); Z79.899 Other long term (current) drug therapy; I44.0 Atrioventricular block, first degree
CPT/HCPCS: 36415; 80053; 85025; 86360; 87536; 93005

== ENCOUNTER 2024-05-06 09:48 | Outpatient (AMB) | payer MEDICARE, SELFPAY ==
--- NOTE | 2024-05-06 10:12 | AM.OFFVISNUR ---
Intake Visit Reasons: r/s 05/05/24 ekg Allergies abacavir [From ZIAGEN] Allergy (Intermediate, Verified 12/31/23 11:00) MOVES FAT IN BODY nevirapine [From Viramune] Allergy (Intermediate, Verified 12/31/23 11:00) HIGH TEMP-WILLA JOHNSONS SYNDROME Nursing Note pt is here for nurse visit with ekg ekg reviewed by Dr Bustamante pt is on Dronedarone 400 mg PO BID pt feels some dizziness while changing positions Office Procedures EKG [id number], Complete
== END 2024-05-06 10:37 | disposition home or self-care (01) ==
PROVIDERS: PCP Internal Medicine; Visit Provider Internal Medicine Cardiovascular Disease
DX: R94.31 Abnormal electrocardiogram [ECG] [EKG] (principal)
CPT/HCPCS: 93010

== ENCOUNTER → 2024-05-06 09:48 | Outpatient (BNVA) | payer MEDICARE, SELFPAY | PROVIDERS: PCP Internal Medicine; Visit Provider Internal Medicine Cardiovascular Disease | DX: R94.31 Abnormal electrocardiogram [ECG] [EKG] (principal); Z79.899 Other long term (current) drug therapy | CPT/HCPCS: 93005 ==

== ENCOUNTER 2024-05-17 10:25 | Outpatient (REF) | payer MEDICARE, SELFPAY ==
[2024-05-17 10:47] LABS: MANUAL DIFF FLAG NO
[2024-05-17 11:44] LABS: Basophils Percent Auto 0.9 % (0-2); Eosinophils Absolute Auto 0.2 X10*3/uL (0.0-0.4); Hematocrit 36.6 % (42.0-52.0); Hemoglobin 12.3 g/dl (14.0-18.0); Imm Gran Abs Auto 0.02 X10*3/uL (0.00-0.03); Imm Gran Pct Auto 0.5 % (0.0-0.4); Lymphocytes Absolute Auto 1.8 X10*3/uL (1.2-4.9); Lymphocytes Percent Auto 43.3 % (20-40); Mean Corpuscular HGB Conc 33.6 g/dl (31.0-36.0); Mean Corpuscular Hemoglobin 30.8 pg (27.0-33.0); Mean Corpuscular Volume 91.7 fL (80.0-98.0); Mean Platelet Volume 10.6 fL (9.4-12.4); Monocytes Absolute Auto 0.4 X10*3/uL (0.1-1.2); Monocytes Percent Auto 9.2 % (2-11); Neutrophils Absolute Auto 1.8 x10*3/uL (2.0-8.3); Neutrophils Percent Auto 42.1 % (45-73); Platelet Count 205 X10*3/uL (160-400); Red Blood Count 3.99 X10*6/uL (4.60-5.80); Red Cell Distribution Width 12.6 % (11.0-16.0); White Blood Count 4.2 X10*3/uL (4.8-10.8)
[2024-05-17 12:28] LABS: Alanine Aminotransferase 29 U/L (0-40); Albumin Level 4.1 g/dL (3.5-5.0); Alkaline Phosphatase 85 U/L (39-117); Anion Gap 10 (12-20); Aspartate Amino Transferase 29 U/L (5-37); Bilirubin Total 0.3 mg/dL (0.0-1.0); Blood Urea Nitrogen 10 mg/dL (9-16); Calcium 9.2 mg/dL (8.4-10.2); Carbon Dioxide 26 mmol/L (22-29); Chloride 110 mmol/L (96-108); Cholesterol 128 mg/dL (<200); Estimated Glomerular Filt Rate > 60; Glucose Fasting 145 mg/dL (60-99); HDL Cholesterol 40 mg/dL (>40); LDL Cholesterol Calculated 66 mg/dL (<100); Potassium 4.7 mmol/L (3.3-5.1); Sodium 141 mmol/L (135-145); Total Protein 7.2 g/dL (6.5-8.0); Triglycerides 113 mg/dL (<150)
[2024-05-17 12:38] LABS: Prostate Specific Antigen 2.77 ng/mL (<0.05-4.0)
--- OUTSIDE RECORDS SUMMARY | 2024-05-17 15:09 | XMS_ITS | Patient Health Record ---
Author Organization [facility] Address [address] [place] [address] Care Team Providers Care Orthotic/Prosthetic Clinician Name Role Phone Ankur Calloway MD Primary Care Provider Unavaila Mike Abdul Jr Unavailable Lindsay Blas Unavailable Unavailable ALLERGIES Allergen (clinical drug ingredient) Drug/Non Drug Allergy documented on EMR Reaction Allergy Type Onset Date Status abacavir Ziagen Unknown Drug Allergy Active Neveripine (uncoded) Unknown Allergy Active REASON FOR REFERRAL No Information MEDICATIONS Medication SIG (Take, Route, Frequency, Duration) Notes Start Date End Date Status levOCARNitine 330 MG 3 tablets Orally Tw ice a day Active Multi Vitamin/Minerals 1 1 Orally qd Active CoQ-10 100 MG as directed Orally Active Daily Vitamin - 1 tablet Orally Once a day for 30 day(s) Active Vitamin B Complex 1 1 Orally qd Active Citracal Calcium Gummies 250-115-250 MG-MG-UNIT as directed Orally Active Atorvastatin Calcium 40 MG 1 tablet Oral ly Once a day Active Gabapentin 300 MG 2 capsule Orally qd Active Benadryl 25 MG 1 capsule as needed Orally prn Active Loperamide HCl 2 MG 1 capsule Orally 3 time(s) a day Active Omeprazole 20 MG 1 capsule Orally Onc e a day Active Ibuprofen 400 MG 1 tablet Orally Thre e times a day Active Fish Oil 1000 MG 1 capsule Orally Onc e a day Active Aspir-81 81 MG 1 tablet Orally Once a day Active Doxazosin Mesylate 2 MG 1 tablet Orally twice a day Active ALPRAZolam 0.25 MG 1 tablet Orally prn Active Viread 300 MG 1 tablet Orally Once a day Active Hyoscyamine Sulfate 0.125 MG 1 tablet as needed Orally every 4 hrs Active Tamsulosin HCl 0.4 MG 1 capsule Orally O nce a day Active valACYclovir HCl 500 MG 1 tablet Orally Once a day for 10 day(s) Active Tums 500 MG 1 tablet Orally prn Active ProAir HFA 108 (90 Base) MCG/ACT 1 puff as needed Inhalation every 4 hrs Active Xarelto 20 MG 1 tablet with food Orally Once a day Active Ipratropium [place] 0.03 % 2 sprays in e ach nostril Nasally Twice a day for 30 day(s) Active Multaq 400 MG 1 tablet with meals Orally Twice a day Active Albuterol Sulfate 108 (90 Base) MCG/ACT 1 puff as needed Inhalation every 4 hrs Active MiraLax (colon prep) 17 GM/SCOOP mixed with Gatorade or Crystal Light Orally begin at 5:00 p.m. the day before the procedure for 1 day 01/02/2022 Active Metoprolol Succinate ER 50 MG 1 tablet Orally Once a day for 30 day(s) Active Colyte with Flavor Packs 240 GM As directed Orally Over the specified time. 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 (Z79.01) Active confirmed 739456381 Problem Personal history of colonic polyps (Z86.010) Active confirmed 275541556 Problem Irritable bowel syndrome with diarrhea (K58.0) Active confirmed 295704662 Problem FDC (current) use of aspirin (Z79.82) Active confirmed 765670564 Problem Diverticulosis of colon (K57.30) Active confirmed Diverticulosi s of colon (230995060) PLAN OF TREATMENT Future Test Test Name Order Date COLONOSCOPY 06/19/2016 COLONOSCOPY 01/02/2022 Insurance Providers Payer Name Payer Address Payer Phone Subscriber Number Group Number Insured Name Patient Relationship to Insured Coverage Start Date Coverage End Date MEDICARE OF [place] [address] [place] [address] [id number] DILMA FENTON Self - patient is the insured MED[employer] ATTN CLAIMS [address] [place] [address] [id number] DILMA FENTON Self - patient is the insured MEDICAL (GENERAL) HISTORY Medical History History ICD Code HIV infection Seizure disorder neuropathy depression hypercholesterolemia hypogonadism Irritable bowel syndrome hypertension BPH Atrial fibrillation Colonoscopy 08/05, tubular adenoma, five- year followup Surgical History Surgery Date(Month/Year) cholecystectomy ganglion cyst removed on wrist and neck tonsillectomy
== END 2024-05-17 10:26 | disposition home or self-care (01) ==
LOC: HO.LAB 10:25
PROVIDERS: PCP Internal Medicine; Visit Provider Internal Medicine
DX: I48.91 Unspecified atrial fibrillation (principal); E11.9 Type 2 diabetes mellitus without complications; N40.0 Benign prostatic hyperplasia without lower urinary tract symptoms; E78.00 Pure hypercholesterolemia, unspecified; N18.9 Chronic kidney disease, unspecified; Z12.5 Encounter for screening for malignant neoplasm of prostate
CPT/HCPCS: 36415; 80053; 80061; 84153; 85025

== ENCOUNTER 2024-06-02 08:24 | Day surgery (SDC) | payer MEDICARE, SELFPAY ==
--- NOTE | 2024-06-01 10:01 | P.CONAN_ITS ---
Documented by User: Anisha Magallon NP 06/01/24 10:04 HPI - Anesthesia Eval Consult details Narrative: 79yo M for Cardioversion Afib xarelto PMFSH Active Problems Active Problems: All Active Problems Chronic cystitis (Acute) Overactive bladder (Acute) BPH w urinary obs/LUTS (Acute) Paroxysmal atrial fibrillation (Acute) HTN (hypertension) (Acute) Bilateral carotid artery disease (Acute) Past Medical History Medical History History of seizure HIV positive Paroxysmal atrial fibrillation History of cardioversion HTN (hypertension) Bilateral carotid artery disease Persistent atrial fibrillation Family History Family History Father Stroke Mother No problems noted. Family history of problems with anesthesia: No Surgical History Surgical History Hx of tonsillectomy History of surgical removal of ganglion cyst Hx of colonoscopy History of carotid endarterectomy (08/17/18) Hx of cholecystectomy History of Problems with Anesthesia: No Social History Social History Are you a primary behavioral health care manager to a significant other at home: No Do you presently have visiting nurse or other home services: No Patient Tobacco Use Status: Former Tobacco user Tobacco use type: Cigarette Second Hand Smoke Exposure: No Use of substances other than those prescribed or required for medical reasons: No Have you been hit, kicked, punched, or otherwise hurt by someone within the past year? If so, by whom?: No Are you DNR?: No Advance Directives: No Advance Directives Information Provided: Yes Advance Directives Date on File: 01/26/20 Recently lost weight without trying: No Meds Allergies Allergy/AdvReac Type Severity Reaction Status Date / Time abacavir [From ZIAGEN] Allergy Intermediate MOVES FAT Verified 12/31/23 11:00 IN BODY nevirapine [From Viramune] Allergy Intermediate HIGH Verified 12/31/23 11:00 TEMP-WILLA JOHNSONS SYNDROME Home Medications ?Medication ?Instructions ?Recorded ?Confirmed ?Last Taken ?Type albuterol sulfate 90 mcg/actuation 2 puff inhalation Q4-6H PRN 03/28/20 10/28/23 Unknown History aerosol inhaler Shortness Of Breath Or Wheezing alprazolam 0.25 mg tablet 0.25 mg PO BID PRN Anxiety 03/28/20 10/28/23 Unknown History atorvastatin 40 mg tablet 40 mg PO DAILY 03/28/20 10/28/23 Unknown History cholecalciferol (vitamin D3) 50 50 mcg PO DAILY 03/28/20 10/28/23 03/29/20 History mcg (2,000 unit) capsule efavirenz 600 mg tablet 600 mg PO BEDTIME 03/28/20 10/28/23 06/01/24 History emtricitabine 200 mg-tenofovir 1 tab PO DAILY 03/28/20 10/28/23 06/01/24 History alafenamide fumarate 25 mg tablet gabapentin 300 mg capsule 300 mg PO BID 03/28/20 10/28/23 01/16/22 History loperamide 2 mg capsule 2 mg PO Q6H PRN Diarrhea 03/28/20 10/28/23 Unknown History multivitamin,mj-vkqn-qlivmqwp 1 tab PO DAILY 03/28/20 10/28/23 04/13/20 History (Complete Multivitamin tablet) raltegravir 400 mg tablet 400 mg PO BID 03/28/20 10/28/23 01/16/22 History vitamin B complex (B 1 tab PO DAILY 03/28/20 10/28/23 04/13/20 History Complex-Vitamin B12 tablet) ergocalciferol (vitamin D2) 1,000 2,000 unit PO DAILY 04/13/20 10/28/23 04/13/20 History unit capsule omeprazole 20 mg capsule,delayed 20 mg PO BID 01/11/22 10/28/23 06/01/24 History release Exam Pertinent Lab Results Pertinent Lab Results: Laboratory Tests 05/17/24 10:44 WBC 4.2 L Hgb 12.3 L Hct 36.6 L Plt Count 205 Sodium 141 Potassium 4.7 Chloride 110 H Carbon Dioxide 26 BUN 10 Creatinine 1.11 Narrative Narrative: US carotid duplex BI 2023 IMPRESSION: 1. RIGHT: Moderate, hemodynamically significant stenosis of the proximal right internal carotid artery corresponding to a 50-79% stenosis by velocity criteria. 2. LEFT: Moderate, hemodynamically significant stenosis of the proximal left internal carotid artery corresponding to a 50-79% stenosis by velocity criteria. 3. There is no change in the category severity of disease when compared to the previous study dated 05/22/2022. Assessment and Plan Assessment Anesthesia Assessment: Chart Reviewed Final Anesthetic Review Family History of Problems with Anesthesia: No History of Problems with Anesthesia: No Documented by User: Blanca Alvarado MD 06/02/24 11:34 PMFSH Past Medical History Medical History History of seizure HIV positive Paroxysmal atrial fibrillation History of cardioversion HTN (hypertension) Bilateral carotid artery disease Persistent atrial fibrillation Family History Family History Father Stroke Mother No problems noted. Surgical History Surgical History Hx of tonsillectomy History of surgical removal of ganglion cyst Hx of colonoscopy History of carotid endarterectomy (08/17/18) Hx of cholecystectomy Social History Social History Are you a primary behavioral health care manager to a significant other at home: No Do you presently have visiting nurse or other home services: No Patient Tobacco Use Status: Former Tobacco user Tobacco use type: Cigarette Second Hand Smoke Exposure: No Use of substances other than those prescribed or required for medical reasons: No Have you been hit, kicked, punched, or otherwise hurt by someone within the past year? If so, by whom?: No Are you DNR?: No Advance Directives: No Advance Directives Information Provided: Yes Advance Directives Date on File: 01/26/20 Recently lost weight without trying: No Meds Allergies Allergy/AdvReac Type Severity Reaction Status Date / Time abacavir [From ZIAGEN] Allergy Intermediate MOVES FAT Verified 12/31/23 11:00 IN BODY nevirapine [From Viramune] Allergy Intermediate HIGH Verified 12/31/23 11:00 TEMP-WILLA JOHNSONS SYNDROME Home Medications ?Medication ?Instructions ?Recorded ?Confirmed ?Last Taken ?Type albuterol sulfate 90 mcg/actuation 2 puff inhalation Q4-6H PRN 03/28/20 10/28/23 Unknown History aerosol inhaler Shortness Of Breath Or Wheezing alprazolam 0.25 mg tablet 0.25 mg PO BID PRN Anxiety 03/28/20 10/28/23 Unknown History atorvastatin 40 mg tablet 40 mg PO DAILY 03/28/20 10/28/23 Unknown History cholecalciferol (vitamin D3) 50 50 mcg PO DAILY 03/28/20 10/28/23 03/29/20 History mcg (2,000 unit) capsule efavirenz 600 mg tablet 600 mg PO BEDTIME 03/28/20 10/28/23 06/01/24 History emtricitabine 200 mg-tenofovir 1 tab PO DAILY 03/28/20 10/28/23 06/01/24 History alafenamide fumarate 25 mg tablet gabapentin 300 mg capsule 300 mg PO BID 03/28/20 10/28/23 01/16/22 History loperamide 2 mg capsule 2 mg PO Q6H PRN Diarrhea 03/28/20 10/28/23 Unknown History multivitamin,ma-uspm-febltkto 1 tab PO DAILY 03/28/20 10/28/23 04/13/20 History (Complete Multivitamin tablet) raltegravir 400 mg tablet 400 mg PO BID 03/28/20 10/28/23 01/16/22 History vitamin B complex (B 1 tab PO DAILY 03/28/20 10/28/23 04/13/20 History Complex-Vitamin B12 tablet) ergocalciferol (vitamin D2) 1,000 2,000 unit PO DAILY 04/13/20 10/28/23 04/13/20 History unit capsule omeprazole 20 mg capsule,delayed 20 mg PO BID 01/11/22 10/28/23 06/01/24 History release Exam Airway Mallampati Class: II TM Dist: >3cm Neck ROM: Full Heart: rrr Lungs: cta Assessment and Plan Assessment Anesthesia Assessment: Anesthesia Plan Discussed Final Anesthetic Review NPO: Yes ASA Class: III Final Preanesthetic Review: No Changes in Pt Med Stat, Meds/Allgs Chart Reviewed, Consent Obtained/Reviewed and Anes Risks/Benef Reviewed Patient Risk: Intermediate Procedure Risk: Low Anesthetic Plan Anesthetic Plan: MAC: Disposition: Standard PACU
[2024-06-02 08:34] VITALS: BMI 31.3
[2024-06-02 08:41] VITALS: BP 112/59; PULSE 78; RESP 16; TEMP 36.8; O2SAT 96
--- OUTSIDE RECORDS SUMMARY | 2024-06-02 09:03 | XMS_ITS | Patient Health Record ---
Author Organization [facility] Address [address] [place] [address] Care Team Providers Care Pet Food Deboner Name Role Phone Ankur Calloway MD Primary [...] food Orally Once a day Active Ipratropium [place] 0.03 % 2 sprays in e ach [...] Problem Colon cancer screening (Z12.11) Active confirmed 048169447 Problem halfway (current) use of anticoagulants (Z79.01) Active confirmed 300710224 Problem Personal history of colonic polyps (Z86.010) Active confirmed 845185644 Problem Irritable bowel syndrome with diarrhea (K58.0) Active confirmed 521950213 Problem halfway (current) use of aspirin (Z79.82) Active confirmed 051196260 Problem Diverticulosis of colon (K57.30) Active confirmed Diverticulosi s of colon (851712057) PLAN OF TREATMENT Future Test Test Name Order Date COLONOSCOPY 06/19/2016 COLONOSCOPY 01/02/2022 Insurance Providers Payer Name Payer Address Payer Phone Subscriber Number Group Number Insured Name Patient Relationship to Insured Coverage Start Date Coverage End Date MEDICARE OF [place] [address] [place] [address] [phone] [id number] DILMA FENTON Self - patient is the insured MED[employer] ATTN CLAIMS [address] [place] [address] [id number] DILMA FENTON Self - patient is the insured MEDICAL (GENERAL) HISTORY Medical History History ICD Code HIV infection Seizure disorder neuropathy depression hypercholesterolemia hypogonadism Irritable bowel syndrome hypertension BPH Atrial fibrillation Colonoscopy 08/05, tubular adenoma, five- year followup Surgical History Surgery Date(Month/Year) cholecystectomy ganglion cyst removed on wrist and neck tonsillectomy
--- NOTE | 2024-06-02 09:54 | MHC.SHP ---
Pre-Procedural Eval Section A - 24 Hr Update-Section A only Date of Service: 06/02/24 The patient is an INPATIENT: No Changes since office visit: Yes Changes in Medication and Yes Patient answered all questions; No Cold of Flu in the past 2 weeks and No New Medical Problems The patient has been examined within 24 hours of the surgical procedure. The History & Physical has been completed within 30 days and I have reviewed it.: No Section B - Complete if H&P > 30 days Chief Complaint: Paroxysmal atrial fibrillation Allergies: Allergies Allergy/AdvReac Type Severity Reaction Status Date / Time abacavir [From ZIAGEN] Allergy Intermediate MOVES FAT Verified 12/31/23 11:00 IN BODY nevirapine [From Viramune] Allergy Intermediate HIGH Verified 12/31/23 11:00 TEMP-WILLA JOHNSONS SYNDROME Plan I have reviewed the history and physical and performed a pertinent physical examination on my patient. No changes have occurred unless specified. Time Spent With Patient Time: Total time managing care of this patient today ____ minutes.
--- NOTE | 2024-06-02 10:44 | MHC.SHP ---
Pre-Procedural Eval Section A - 24 Hr Update-Section A only Date of Service: 06/02/24 Section B - Complete if H&P > 30 days Chief Complaint: Paroxysmal atrial fibrillation Details of Present Illness: Patient came for a routine EKG on dronedarone therapy and was noted to be in atrial fibrillation. Rate was adequately controlled. This due to failure of dronedarone therapy he was switch to amiodarone therapy with loading and scheduled for synchronized cardioversion given his prior history of persistent atrial fibrillation with symptoms. He has had prior history of ablation. He is currently on oral anticoagulation therapy with Xarelto which she has been taking Relevant Family History (Specify if Yes): No Relevant Social History: None Present Medications: see Short Stay Collaborative assessment Medical History: Significant History Allergies: Allergies Allergy/AdvReac Type Severity Reaction Status Date / Time abacavir [From ZIAGEN] Allergy Intermediate MOVES FAT Verified 12/31/23 11:00 IN BODY nevirapine [From Viramune] Allergy Intermediate HIGH Verified 12/31/23 11:00 TEMP-WILLA JOHNSONS SYNDROME Review of Systems Sugical H&P ROS: Negative: Constitution, Respiratory, Neurological, Psychiatric, Hem-Onc, Allergic/Immunologic, Gastrointestinal, Genitourinary and Musculoskeletal and Yes, Specify: Cardiovascular (Irregular heartbeat) Exam Surgical H&P Exam: Normal: HEENT, Normal: Lungs, Normal: Extremities, Normal: Abdomen, Normal: Skin and Normal: Neurological and Significant Findings: Heart (Irregularly irregular rhythm) Plan Diagnosis/Plan: Unchanged Patient with persistent atrial fibrillation loaded with amiodarone therapy and brought in for synchronized cardioversion. Plan was discussed with him including risks and benefits. He understands agrees. Patient has been taking his oral anticoagulation therapy. I have reviewed the history and physical and performed a pertinent physical examination on my patient. No changes have occurred unless specified. Time Spent With Patient Time: Total time managing care of this patient today ____ minutes.
[2024-06-02 11:29] VITALS: BP 117/64; PULSE 60; RESP 18; TEMP 36.3; O2SAT 98
--- NOTE | 2024-06-02 11:35 | ECG_ITS ---
Test Reason : post cardioversion Blood Pressure : */* mmHG Vent. Rate : 54 BPM Atrial Rate : * BPM P-R Int : * ms QRS Dur : 90 ms QT Int : 456 ms P-R-T Axes : * 32 64 degrees QTcB Int : 432 ms Atrial fibrillation with slow ventricular response Abnormal ECG When compared with ECG of 13-Apr-2020 12:48, Atrial fibrillation has replaced Sinus rhythm Referred By: Louie Bustamante Electronically Signed By: LOUIE BUSTAMANTE MD
--- NOTE | 2024-06-02 11:39 | HO.CARDIVERS ---
Cardioversion Procedure Note Cardioversion Date of Procedure: 06/02/2024 Ordering Provider: Holly Thomas Performing Provider: Lisa Bustamante Indication for Procedure: Recurrent persistent atrial fibrillation Pre-Op Diagnosis: Same Post-Op Diagnosis: Same Performed with Transesophageal Echo: No Consent: Verbal and Written consent was obtained from the patient before starting and after confirming amiodarone and oral anticoagulation use. The patient was made aware of the risk of synchronized cardioversion including benefits and alternatives Procedure: After consent obtained, cardioversion pads were attached in anteroposterior configuration and the patient was sedated by the anesthesia team. Once adequate sedation achieved, patient was delivered 200 joules of biphasic synchronized energy in anteroposterior configuration x2 Complications: None Impression: Unsuccessful conversion Recommendations: 1. Will discontinue amiodarone therapy due to unsuccessful attempt at maintaining rhythm 2. Increase Toprol-XL to 100 mg daily 3. Continue with Xarelto 4. Follow up in the clinic after Holter monitor
[2024-06-02 11:45] VITALS: BP 105/64; PULSE 58; RESP 16; O2SAT 99
[2024-06-02 12:00] VITALS: BP 128/59; PULSE 63; RESP 16; TEMP 36.2; O2SAT 97
== END 2024-06-02 12:30 | disposition home or self-care (01) ==
PROVIDERS: PCP Internal Medicine; Visit Provider Internal Medicine Cardiovascular Disease
PROC: 5A2204Z Restoration of Cardiac Rhythm, Single (ICD-10-PCS; principal; 2024-06-02 10:00)
DX: I48.19 Other persistent atrial fibrillation (principal); I48.0 Paroxysmal atrial fibrillation; Z79.01 Long term (current) use of anticoagulants; I25.10 Atherosclerotic heart disease of native coronary artery without angina pectoris; I10 Essential (primary) hypertension; Z21 Asymptomatic human immunodeficiency virus [HIV] infection status; Z86.79 Personal history of other diseases of the circulatory system; Z87.891 Personal history of nicotine dependence; Z79.899 Other long term (current) drug therapy; Z88.8 Allergy status to other drugs, medicaments and biological substances; Z98.890 Other specified postprocedural states
CPT/HCPCS: 92960; 93005; J2003; J2704

== ENCOUNTER → 2024-06-02 08:24 | Outpatient (BNV) | payer MEDICARE, SELFPAY | PROVIDERS: PCP Internal Medicine; Visit Provider Internal Medicine Cardiovascular Disease | DX: I48.19 Other persistent atrial fibrillation (principal) | CPT/HCPCS: 92960; 93010 ==

== ENCOUNTER 2024-06-10 15:16 | Outpatient (REF) | payer MEDICARE, SELFPAY ==
--- NOTE | ~2024-06-10 | US_ITS ---
EXAMINATION: US EXTRACRANIAL CAROTID DUPLEX, BILATERAL CLINICAL INFORMATION: Occlusion and stenosis, bilateral carotid arteries. Status post left carotid endarterectomy. COMPARISON: May 21, 2023 demonstrated bilateral plaques with 50-79% stenosis. TECHNIQUE: Real-time ultrasound and Doppler techniques (integrating B-mode 2-D vascular images, Doppler spectral analysis and color-flow Doppler imaging) were utilized to interrogate the extracranial carotid arteries, the vertebral arteries and proximal subclavian arteries bilaterally. The degree of stenosis is determined by criteria similar to NASCET. FINDINGS: Right Side: 1. There is irregular shaped calcified atherosclerotic plaque seen in the bifurcation/proximal ICA region. 2. The common carotid artery PSV proximally is 90 cm/s and distally 65 cm/s. 3. The proximal internal carotid artery velocities are 110 cm/s systolic and 40 cm/s diastolic. 4. The proximal external carotid artery PSV is 110 cm/s. 5. The vertebral artery shows antegrade flow. 6. The subclavian artery waveforms are triphasic. Left Side: 1. There is no atherosclerotic plaque seen in the bifurcation/proximal ICA region. 2. The common carotid artery PSV proximally is 98 cm/s and distally 81 cm/s. 3. The proximal internal carotid artery velocities are 102 cm/s systolic and 38 cm/s diastolic. 4. The proximal external carotid artery PSV is 121 cm/s. 5. The vertebral artery shows antegrade flow. 6. The subclavian artery waveforms are triphasic. US/US carotid duplex BI IMPRESSION: 1. RIGHT: Irregular shaped calcified plaque representing 0-49% stenosis by ultrasound criteria. 2. LEFT: No plaque. 0-49% stenosis by ultrasound criteria. 3. There is slight improvement in the category severity of disease when compared to the previous study dated May 21, 2023.. Electronically signed by: Vishal Carey MD 06/11/2024 07:56 AM EST
--- OUTSIDE RECORDS SUMMARY | 2024-06-10 16:19 | XMS_ITS | Patient Health Record ---
Author Organization [facility] Address [address] [place] [address] Care Team Providers Care Grapple Crew Leader Name Role Phone Ankur Calloway MD Primary [...] food Orally Once a day Active Ipratropium [place] 0.03 % 2 sprays in e ach [...] Problem Colon cancer screening (Z12.11) Active confirmed 442546130 Problem [facility] (current) use of anticoagulants (Z79.01) Active confirmed 506606703 Problem Personal history of colonic polyps (Z86.010) Active confirmed 489634331 Problem Irritable bowel syndrome with diarrhea (K58.0) Active confirmed 007749997 Problem [facility] (current) use of aspirin (Z79.82) Active confirmed 515026050 Problem Diverticulosis of colon (K57.30) Active confirmed Diverticulosi s of colon (023684758) PLAN OF TREATMENT Future Test Test Name Order Date COLONOSCOPY 06/19/2016 COLONOSCOPY 01/02/2022 Insurance Providers Payer Name Payer Address Payer Phone Subscriber Number Group Number Insured Name Patient Relationship to Insured Coverage Start Date Coverage End Date MEDICARE OF [place] [address] [place] [address] [id number] DILMA FENTON Self - patient is the insured MED[employer] ATTN CLAIMS [address] [place] [address] [phone] [id number] DILMA FENTON Self - patient is the insured MEDICAL (GENERAL) HISTORY Medical History History ICD Code HIV infection Seizure disorder neuropathy depression hypercholesterolemia hypogonadism Irritable bowel syndrome hypertension BPH Atrial fibrillation Colonoscopy 08/05, tubular adenoma, five- year followup Surgical History Surgery Date(Month/Year) cholecystectomy ganglion cyst removed on wrist and neck tonsillectomy
== END 2024-06-10 15:17 | disposition home or self-care (01) ==
LOC: HO.US 15:16
PROVIDERS: PCP Internal Medicine; Visit Provider Surgery Vascular Surgery
DX: I65.23 Occlusion and stenosis of bilateral carotid arteries (principal)
CPT/HCPCS: 93880

== ENCOUNTER → 2024-06-10 15:18 | Outpatient (BNV) | payer MEDICARE, SELFPAY | PROVIDERS: PCP Internal Medicine; Visit Provider Radiology Diagnostic Radiology | DX: I65.21 Occlusion and stenosis of right carotid artery (principal) | CPT/HCPCS: 93880 ==

== ENCOUNTER → 2024-06-17 11:19 | Outpatient (REF) | payer MEDICARE, SELFPAY ==
--- OUTSIDE RECORDS SUMMARY | 2024-06-17 13:43 | XMS_ITS | Patient Health Record ---
Author Organization [facility] Address [address] [place] [address] Care Team Providers Care Zinc Skimmer Name Role Phone Ankur Calloway MD Primary [...] food Orally Once a day Active Ipratropium [place] 0.03 % 2 sprays in e ach [...] Problem Colon cancer screening (Z12.11) Active confirmed 465843050 Problem [facility] (current) use of anticoagulants (Z79.01) Active confirmed 441035042 Problem Personal history of colonic polyps (Z86.010) Active confirmed 820224343 Problem Irritable bowel syndrome with diarrhea (K58.0) Active confirmed 701980871 Problem [facility] (current) use of aspirin (Z79.82) Active confirmed 699486321 Problem Diverticulosis of colon (K57.30) Active confirmed Diverticulosi s of colon (994676392) PLAN OF TREATMENT Future Test Test Name Order Date COLONOSCOPY 06/19/2016 COLONOSCOPY 01/02/2022 Insurance Providers Payer Name Payer Address Payer Phone Subscriber Number Group Number Insured Name Patient Relationship to Insured Coverage Start Date Coverage End Date MEDICARE OF [place] [address] [place] [address] [phone] [id number] DILMA FENTON Self - patient is the insured MED[employer] ATTN CLAIMS [address] [place] [address] [id number] DILMA FENTON Self - patient is the insured MEDICAL (GENERAL) HISTORY Medical History History ICD Code HIV infection Seizure disorder neuropathy depression hypercholesterolemia hypogonadism Irritable bowel syndrome hypertension BPH Atrial fibrillation Colonoscopy 08/05, tubular adenoma, five- year followup Surgical History Surgery Date(Month/Year) cholecystectomy ganglion cyst removed on wrist and neck tonsillectomy
== END ==
LOC: HO.CARD 11:19
PROVIDERS: PCP Internal Medicine; Visit Provider Internal Medicine Cardiovascular Disease
DX: I48.0 Paroxysmal atrial fibrillation (principal)
CPT/HCPCS: 93242

== ENCOUNTER → 2024-06-17 11:24 | Outpatient (BNV) | payer MEDICARE, SELFPAY | PROVIDERS: PCP Internal Medicine; Visit Provider Internal Medicine Cardiovascular Disease | DX: I49.3 Ventricular premature depolarization (principal) | CPT/HCPCS: 93244 ==

== ENCOUNTER 2024-06-24 10:45 | Outpatient (AMB) | payer MEDICARE, SELFPAY ==
--- NOTE | 2024-06-24 10:50 | A.OFFVIS_ITS ---
Vital Signs 06/24/24 10:52 06/24/24 10:58 Height 5 ft 10 in BP 144/76 H 142/68 H Blood Pressure Location Rt brachial Lt brachial Position Sitting Sitting Intake Visit Reasons: 1yr follow up s/p Carotid US 06/10/24 Intake Note: 1 yr follow up Carotid US 06/10/24 w/ Hx of Left CEA 08/17/24. Pt states he is doing well, has had some cataract surgeries. Accompanied by: Self / Same As Patient Allergies abacavir [From ZIAGEN] Allergy (Intermediate, Verified 06/24/24 10:55) MOVES FAT IN BODY nevirapine [From Viramune] Allergy (Intermediate, Verified 06/24/24 10:55) HIGH TEMP-WILLA JOHNSONS SYNDROME HPI HPI 1yr follow up s/p Carotid US 06/10/24: Details: The patient is a 79-year-old male presenting with a primary reason for routine carotid surveillance followup. He underwent a left carotid endarterectomy on August 17, 2018, and is currently on Xarelto and a statin. His history of carotid artery disease remains stable with carotid surveillance follow-up. The patient also has a history of atrial fibrillation, which has worsened in recent months despite ongoing treatment with Xarelto and a failed cardioversion attempt. His medication was changed from metoprolol to amiodarone to manage this condition. There was discussion regarding the possibility of undergoing an additional electrophysiology ablation procedure after prior ablation approximately two and a half years ago yielded incomplete results. The patient has undergone recent cataract surgery in April with ocular implant placement. He reports improved brightness in colors but experiences issues with distance and close-up vision, leading to a probable need for corrective glasses. [facility] Medical History History of seizure HIV positive Paroxysmal atrial fibrillation History of cardioversion HTN (hypertension) Bilateral carotid artery disease Persistent atrial fibrillation Surgical History Hx of tonsillectomy History of surgical removal of ganglion cyst Hx of colonoscopy History of carotid endarterectomy (08/17/18) Hx of cholecystectomy Family History Father Stroke Mother No problems noted. Social History Are you a primary animal caretaker to a significant other at home: No Do you presently have visiting nurse or other home services: No Patient Tobacco Use Status: Former Tobacco user Tobacco use type: Cigarette Second Hand Smoke Exposure: No Advance Directives Date on File: 01/26/20 Review of Systems Const All systems reviewed & are unremarkable except as noted in HPI and below Reports no additional complaints ENT Reports Normal hearing present Card Denies chest pain, Denies chest pain at rest, Denies chest pain with activity and Denies pedal edema Resp Denies cough GI Denies abdominal pain Musc Denies abnormal gait, Denies muscle cramps and Denies radiating pain into limb Skin/Breast Denies skin ulcer and Denies wounds Neuro Reports Normal hearing present and Denies abnormal gait Psych Reports no additional complaints Physical Exam Vital Signs: Last Vital Signs BP 142/68 H 06/24/24 10:58 Const General: cooperative, healthy appearing and comfortable Orientation/consciousness: oriented to person, oriented to place and oriented to time HEENT Head: Yes normal to inspection Neck Neck: Yes normal visual inspection Carotids: no bruits Chest Chest palpation & inspection: normal inspection of the chest Resp Effort & Inspection: normal respiratory effort and able to speak in complete sentences Auscultation: clear to auscultation bilaterally, no crackles, no rales, no rhonchi and no wheezes Cardio Rate: regular rate Rhythm: regular rhythm Heart sounds: S1 normal heart sound present and S2 normal heart sound present Bruits: no carotid bruits Peripheral pulses: Peripheral pulses 2+ throughout GI Inspection: Yes normal to inspection Skin Wounds: no wounds Hair: normal Neuro General: oriented to person, oriented to place and oriented to time Cranial nerves: Yes CN's II-XII intact bilaterally and Yes Normal hearing present Cognition (Neuro): normal cognition Motor exam (neuro): 5/5 motor strength present throughout Extrem Other: venous exam: No significant superficial varicosities or spider telangiectasias, minimal edema General: No clubbing, No cyanosis and No edema Psych Appearance: grossly normal Mental Status: mental status grossly normal Speech and movement: Normal speech and movement present Results Reviewed Results Reviewed: Noninvasive carotid testing dated 06/10/2024 demonstrates bilateral 0-49% stenosis with right-sided peak systolic of 110 and left side peak systolic of 102. Written report and images were reviewed. Assessment & Plan Assessment & Plan (1) Bilateral carotid artery disease: Comment: Left carotid endarterectomy - 08/17/2018 Code(s): I77.9 - Disorder of arteries and arterioles, unspecified Category: Medical Qualifiers: Carotid artery disease type: stenosis Qualified Code(s): I65.23 - Occlusion and stenosis of bilateral carotid arteries Plan: In short patient has asymptomatic carotid disease and is stable status post carotid endarterectomy. We have reviewed signs and symptoms of a stroke. We also discussed risk factor modification inclusive a healthy diet low in cholesterol. The patient will follow up with us with surveillance ultrasound of the carotids 1 year. Should there be any changes or signs or symptoms of a stroke we will be happy to see them back sooner. Thank you for allowing us to participate in this patient's care. If there are any questions or concerns please do not hesitate to contact us. Plan Patient was informed and verbally consented to the use of an ambient scribe for clinic note documentation during this visit. Orders: Orders US carotid duplex BI 1 Year I65.23 - Occlusion and stenosis of bilateral carotid arteries Patient Instructions: - Continue taking prescribed medications (Xarelto and a statin) as directed. - Monitor and report any new or worsening symptoms relating to atrial fibrillation. - Follow up as scheduled for routine carotid surveillance and consideration of further electrophysiology interventions if required. - Maintain any usual activities and incorporate a healthy lifestyle. Coding Level of Care Code Est Pt Level 4 (70979) Complex EM visit Add On G2211 Diagnoses Bilateral carotid artery stenosis I65.23 Carotid artery disease type: stenosis
[2024-06-24 10:52] VITALS: BP 144/76
[2024-06-24 10:58] VITALS: BP 142/68
--- OUTSIDE RECORDS SUMMARY | 2024-06-24 12:58 | XMS_ITS | Patient Health Record ---
Author Organization [facility] Address [address] [place] [address] Care Team Providers Care Wet Cleaner Machine Name Role Phone Ankur Calloway MD Primary Care Provider Unavaila Mike Abdul Jr Unavailable Lindsay Blas Unavailable Unavailable Allergies Allergen (clinical drug ingredient) Drug/Non Drug Allergy documented on EMR Reaction Allergy Type Onset Date Status abacavir Ziagen Unknown Drug Allergy Active Neveripine (uncoded) Unknown Allergy Active Reason For Referral No Information Medications Medication SIG (Take, Route, Frequency, Duration) Notes [...] food Orally Once a day Active Ipratropium [place] 0.03 % 2 sprays in e ach [...] tablet Orally Twic e a day Active Immunizations Vaccine Route Administration Date Status Comme nts Flu vaccine no Preserv 3 and > Unknown 01/30/2016 Admin istered Influenza Unknown 03/13/2021 Administered Problems Problem Type SNOMED Code ICD Code Onset Dates Problem Status W/U Status Risk Notes Problem 806359652 Colon cancer screening (Z12.11) Active confirmed 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 (Z79.01) Active confirmed Problem 991733917 Personal history of colonic polyps (Z86.010) Active confirmed Problem 158132002 Irritable bowel syndrome with diarrhea (K58.0) Active confirmed Problem 424987885 long-term (current) use of aspirin (Z79.82) Active confirmed Problem Diverticulosis of colon (041838496) Diverticulosis of colon (K57.30) Active confirmed Plan Of Treatment Future Test Test Name Order Date COLONOSCOPY 06/19/2016 COLONOSCOPY 01/02/2022 Insurance Providers Payer Name Payer Address Payer Phone Subscriber Number Group Number Insured Name Patient Relationship to Insured Coverage Start Date Coverage End Date MEDICARE OF [place] [address] [place] [address] [id number] DILMA FENTON Self - patient is the insured MEDEX ATTN CLAIMS [address] [place] [address] [id number] DILMA FENTON Self - patient is the insured Medical (General) History Medical History History ICD Code HIV infection Seizure disorder neuropathy depression hypercholesterolemia hypogonadism Irritable bowel syndrome hypertension BPH Atrial fibrillation Colonoscopy 08/05, tubular adenoma, five- year followup Surgical History Surgery Date(Month/Year) cholecystectomy ganglion cyst removed on wrist and neck tonsillectomy
== END 2024-06-24 11:15 | disposition home or self-care (01) ==
PROVIDERS: PCP Internal Medicine; Visit Provider Surgery Vascular Surgery
DX: I65.23 Occlusion and stenosis of bilateral carotid arteries (principal)
CPT/HCPCS: 99214; G2211

== ENCOUNTER → 2024-06-24 10:45 | Outpatient (BNVA) | payer MEDICARE, SELFPAY | PROVIDERS: PCP Internal Medicine; Visit Provider Surgery Vascular Surgery | DX: I65.23 Occlusion and stenosis of bilateral carotid arteries (principal) | CPT/HCPCS: 99212 ==

== ENCOUNTER 2024-07-05 12:11 | Outpatient (REF) | payer MEDICARE, SELFPAY ==
[2024-07-05 13:32] LABS: Prostate Specific Antigen 3.14 ng/mL (<0.05-4.0)
== END 2024-07-05 12:12 | disposition home or self-care (01) ==
LOC: HO.LAB 12:11
PROVIDERS: PCP Internal Medicine; Visit Provider Urology
DX: N40.1 Benign prostatic hyperplasia with lower urinary tract symptoms (principal); N13.8 Other obstructive and reflux uropathy; Z12.5 Encounter for screening for malignant neoplasm of prostate
CPT/HCPCS: 36415; 84153

== ENCOUNTER 2024-07-15 10:30 | Outpatient (AMB) | payer MEDICARE, SELFPAY ==
--- NOTE | 2024-07-15 10:30 | MHC.OFFVIS ---
Intake Visit Reasons: 6m/PSA Intake Note: Patient is present for 6M/PSA Urology Medication:TERAZOSIN,VITAMIN B12 Antibiotic Allergy:NONE Blood Thinner:NONE Package Handler Required: No Allergies abacavir [From ZIAGEN] Allergy (Intermediate, Verified 08/05/24 13:35) MOVES FAT IN BODY nevirapine [From Viramune] Allergy (Intermediate, Verified 08/05/24 13:35) HIGH TEMP-WILLA JOHNSONS SYNDROME HPI Comments Details: Juan is a pleasant male. He is a patient of Dr. Calloway. He is seen for the following urologic conditions. - lower urinary tract symptoms Telemedicine Evaluation 15 min Consultation DoxJobdoh Carolyn Video Doing well Discussed adequate voiding parameters PSA remains low Twelve month follow-up Lower urinary tract symptoms Mildly increased urgency and frequency Current therapy terazosin 5 mg Current symptoms mild urgency, nocturia x1 PSA 12/08 2.0, 11/08 1.9, 03/12 4.1, 04/12 2.2, 07/13 3.2 Interventions - 05/13 TUR prostate polyp - chronic inflammation HBA1c - 10/10 6.6 Long-term HIV since 1989 with triple therapy PFSH Medical History (Updated 08/05/24 @ 15:12 by Holly Thomas NP-C) Persistent atrial fibrillation History of seizure HIV positive Paroxysmal atrial fibrillation History of cardioversion HTN (hypertension) Bilateral carotid artery disease Surgical History Hx of tonsillectomy History of surgical removal of ganglion cyst Hx of colonoscopy History of carotid endarterectomy (08/17/18) Hx of cholecystectomy Family History Father Stroke Mother No problems noted. Social History Are you a primary child care education coordinator to a significant other at home: No Do you presently have visiting nurse or other home services: No Patient Tobacco Use Status: Former Tobacco user Tobacco use type: Cigarette Second Hand Smoke Exposure: No Advance Directives Date on File: 01/26/20 Review of Systems Const All systems reviewed & are unremarkable except as noted in HPI and below Reports no additional complaints Resp Reports no additional complaints GI Reports no additional complaints Reports as per HPI Musc Reports no additional complaints Physical Exam Telemedicine evaluation Appropriate responses Regular breathing rate and rhythm HEENT Head: Yes normal to inspection Ears: hearing grossly normal bilaterally Eyes General: appearance normal, both eyes and all related structures Neck Neck: Yes normal visual inspection Chest Chest palpation & inspection: normal inspection of the chest Resp Effort & Inspection: normal respiratory effort and able to speak in complete sentences Telehealth Telehealth Location of provider rendering services: practice address Location of patient: address on file Patient Identification confirmed using: Name, : Yes Telehealth method: voice only Patient verbally consented to treatment: Yes Patient verbally consented to billing insurance company: Yes Patient informed of any privacy concerns related to visit: Yes Assessment & Plan Assessment & Plan (1) Chronic cystitis: Comment: 09/10 one cystoscopy Code(s): N30.20 - Other chronic cystitis without hematuria Category: Medical (2) BPH w urinary obs/LUTS: Code(s): N40.1 - Benign prostatic hyperplasia with lower urinary tract symptoms; N13.8 - Other obstructive and reflux uropathy Category: Medical Plan Refill terazosin Twelve month follow-up Medications: Refilled terazosin 5 mg PO BEDTIME 90 caps 3RF 90 days N40.1 - Benign prostatic hyperplasia with lower urinary tract symptoms, N13.8 - Other obstructive and reflux uropathy, R35.0 - Frequency of micturition Patient Instructions: This note is constructed using voice recognition software. While every effort has been made to ensure accuracy hardware installer errors may have been included. Imaging studies, laboratory and physical exam results were discussed and reviewed in detail. No major barriers to patient understanding were identified. An opportunity to ask questions regarding the treatment plan was provided. All questions were answered. The patient expressed understanding and agreement with the above treatment plan. The patient is aware they should contact our office by phone for worsening of their current condition or the appearance of new urologic symptoms. Compliance is encouraged with any medications and followup testing that is ordered. It is a privilege to participate in the urologic care of your patient. If you have any questions or concerns regarding treatment for the above conditions, or other urologic issues, please do not hesitate to contact me. The office telephone contact is [phone]. Sincerely, Dr Ric Beaulieu MD, [facility] - Urology Compassionate Specialist Care for the Genitourinary System Coding Level of Care Code Tele Est Pt Level 3 (45052) Complex EM visit Add On G2211 Diagnoses Chronic cystitis N30.20 BPH w urinary obs/LUTS N40.1; N13.8
== END 2024-07-15 11:41 | disposition home or self-care (01) ==
LOC: HO.HUSH 10:30
PROVIDERS: PCP Internal Medicine; Visit Provider Urology
DX: N30.20 Other chronic cystitis without hematuria (principal); N40.1 Benign prostatic hyperplasia with lower urinary tract symptoms; N13.8 Other obstructive and reflux uropathy
CPT/HCPCS: 99213; G2211

== ENCOUNTER → 2024-08-04 09:54 | Outpatient (BNVA) | payer MEDICARE, SELFPAY | PROVIDERS: PCP Internal Medicine; Visit Provider Internal Medicine Cardiovascular Disease | DX: Z13.89 Encounter for screening for other disorder (principal) ==

== ENCOUNTER 2024-08-05 13:20 | Outpatient (AMB) | payer MEDICARE, SELFPAY ==
[2024-08-05 13:34] VITALS: BP 138/72; PULSE 68; BMI 32.3
--- NOTE | 2024-08-05 13:34 | A.OFFVIS_ITS ---
Vital Signs 08/05/24 13:34 Height 5 ft 10 in Weight 225 lb 4.999 oz BMI 32.3 BP 138/72 Blood Pressure Location Lt brachial Position Sitting Pulse 68 Pulse Source Monitor Intake Visit Reasons: follow-up per Dr Bustamante Organisational Psychologist Required: No Allergies abacavir [From ZIAGEN] Allergy (Intermediate, Verified 08/05/24 13:35) MOVES FAT IN BODY nevirapine [From Viramune] Allergy (Intermediate, Verified 08/05/24 13:35) HIGH TEMP-WILLA JOHNSONS SYNDROME Medication List - Last Reconciled 08/05/24 by TEENA Blankenship albuterol sulfate 90 mcg/actuation 2 puffs inhalation Q4-6H PRN alprazolam 0.25 mg PO BID PRN amiodarone mg PO DAILY atorvastatin 40 mg PO DAILY cholecalciferol (vitamin D3) 50 mcg PO DAILY efavirenz 600 mg PO BEDTIME emtricitabine-tenofovir alafen 200-25 mg 1 tab PO DAILY ergocalciferol (vitamin D2) 2,000 units PO DAILY gabapentin 300 mg PO BID loperamide 2 mg PO Q6H PRN metoprolol succinate ER 100 mg (2 x 50 mg) PO DAILY multivitamin,[id number] (Complete Multivitamin tablet) 1 tab PO DAILY omeprazole 20 mg PO BID raltegravir 400 mg PO BID rivaroxaban 20 mg PO DAILY terazosin 5 mg PO BEDTIME 90 days tramadol 50 mg PO Q6H PRN trimethoprim 100 mg PO DAILY 90 days vitamin B complex (B Complex-Vitamin B12 tablet) 1 tab PO DAILY HPI HPI follow-up per Dr Bustamante: Details: Toney is a 79-year-old male with past medical history of hypertension, carotid stenosis status post endarterectomy, paroxysmal now persistent atrial fibrillation who presents for follow-up after recent Holter monitor. Today he reports he has been taking the amiodarone still. He was not aware that he was supposed to stop it. He has been taking metoprolol as well. He denies any heart palpitations. He has no chest discomfort at rest or during activity. He denies shortness of breath, PND, orthopnea or edema. No lightheadedness, presyncope, syncope. He reports good activity tolerance. He is active with house and [employer] work. He did not do much during the winter as the cold weather bothers his arthritis. No bleeding issues reported. Compliant with his meds. [facility] Medical History (Updated 08/05/24 @ 15:12 by TEENA Blankenship) Persistent atrial fibrillation History of seizure HIV positive Paroxysmal atrial fibrillation History of cardioversion HTN (hypertension) Bilateral carotid artery disease Surgical History Hx of tonsillectomy History of surgical removal of ganglion cyst Hx of colonoscopy History of carotid endarterectomy (08/17/18) Hx of cholecystectomy Family History Father Stroke Mother No problems noted. Social History Are you a primary pulmonary care nurse to a significant other at home: No Do you presently have visiting nurse or other home services: No Patient Tobacco Use Status: Former Tobacco user Tobacco use type: Cigarette Second Hand Smoke Exposure: No Advance Directives Date on File: 01/26/20 Review of Systems Const All systems reviewed & are unremarkable except as noted in HPI and below ENT Denies dizziness Card Denies chest pain, Denies chest pain at rest, Denies chest pain with activity, Denies rapid heart rate, Denies pedal edema, Denies edema, Denies leg edema, Denies lightheadedness, Denies palpitations, Denies dyspnea, Denies dyspnea on exertion and Denies orthopnea Resp Denies cough, Denies dyspnea and Denies dyspnea on exertion GI Denies hematochezia and Denies change in stool character Musc Denies abnormal gait, Denies limited range of motion, Denies muscle cramps, Denies muscle weakness, Denies numbness, Denies radiating pain into limb, Denies stiffness and Denies tingling Neuro Denies abnormal gait, Denies dizziness, Denies numbness and Denies tingling Endo Denies palpitations Physical Exam Vital Signs: Last Vital Signs Pulse 68 08/05/24 13:34 BP 138/72 08/05/24 13:34 BMI result Body Mass Index 32.3 Const General: cooperative, healthy appearing, comfortable and no acute distress Orientation/consciousness: patient oriented x3 Neck Neck: Yes normal visual inspection and Yes no JVD Resp Effort & Inspection: normal respiratory effort Auscultation: clear to auscultation bilaterally, no rales, no rhonchi and no wheezes Cardio Rate: regular rate Rhythm: abnormal rhythm Heart sounds: S1 normal heart sound present, S2 normal heart sound present, no gallops, no murmurs and no rubs Neuro General: patient oriented x3 Extrem General: Yes normal to inspection, No no pedal edema and No calf tenderness Psych Appearance: grossly normal Mental Status: mental status grossly normal Speech and movement: Normal speech and movement present Assessment & Plan Assessment & Plan (1) Persistent atrial fibrillation: Comment: has done well with a rhythm control approach on amiodarone therapy. Has required cardioversion. Underwent ablation, 1 week ago, March 2020. Code(s): I48.19 - Other persistent atrial fibrillation Category: Medical Plan: History of paroxysmal atrial fibrillation, which has recently become persistent. He was changed from Multaq to amiodarone then had attempted cardioversion on 06/02/2024 which was unsuccessful. The plan was to stop amiodarone and continue metoprolol. Patient states he did not understand that he was to stop the amiodarone. His EKG done yesterday shows atrial fibrillation with nonspecific T-wave abnormality, rate 75. He is currently asymptomatic. A Holter monitor done 06/17/2024 for 3 days shows atrial fibrillation with average heart rate 66, rare PVC. Will have him stop amiodarone. We will now treat him with rate control. Continue metoprolol XL 100 mg daily for heart rate control. Continue Xarelto for anticoagulation. Bi annual renal function test recommended. Cardiology follow-up 6 months, sooner if needed. (2) HTN (hypertension): Code(s): I10 - Essential (primary) hypertension Category: Medical Plan: Adequately controlled. No med changes made beyond stopping amiodarone. (3) Bilateral carotid artery disease: Comment: Left carotid endarterectomy - 08/17/2018 Code(s): I77.9 - Disorder of arteries and arterioles, unspecified Category: Medical Qualifiers: Carotid artery disease type: stenosis Qualified Code(s): I65.23 - Occlusion and stenosis of bilateral carotid arteries Plan: He follows with Dr. Sanders. He is not on aspirin as he is on Xarelto. He is on atorvastatin. Plan Time spent on chart review, documentation, interview and assessment Medications: New metoprolol succinate ER 100 mg PO DAILY 90 tabs 3RF Coding Level of Care Code Est Pt Level 4 (22920) Complex EM visit Add On G2211 Diagnoses Persistent atrial fibrillation I48.19 HTN (hypertension) I10 Bilateral carotid artery stenosis I65.23 Carotid artery disease type: stenosis Time Spent (min) 28
--- OUTSIDE RECORDS SUMMARY | 2024-08-05 16:18 | XMS_ITS | Patient Health Record ---
Author Organization [facility] Address [address] [place] [address] Care Team Providers Care Sustainability Specialist Name Role Phone Ankur Calloway MD Primary [...] food Orally Once a day Active Ipratropium [place] 0.03 % 2 sprays in e ach [...] Problem Status W/U Status Risk Notes Problem 872456022 Colon cancer screening (Z12.11) Active confirmed Problem 152824121 [facility]PC (current) use of anticoagulants (Z79.01) Active confirmed Problem 161259876 Personal history of colonic polyps (Z86.010) Active confirmed Problem 511341697 Irritable bowel syndrome with diarrhea (K58.0) Active confirmed Problem 178216636 [facility]PC (current) use of aspirin (Z79.82) Active confirmed Problem Diverticulosis of colon (118553475) Diverticulosis of colon (K57.30) Active confirmed Plan Of Treatment Future Test Test Name Order Date COLONOSCOPY 06/19/2016 COLONOSCOPY 01/02/2022 Insurance Providers Payer Name Payer Address Payer Phone Subscriber Number Group Number Insured Name Patient Relationship to Insured Coverage Start Date Coverage End Date MEDICARE OF [place] [address] [place] [id number] [phone] [id number] DILMA FENTON Self - patient is the insured MED[employer] ATTN CLAIMS [address] [place] [address] [id number] DILMA FENTON Self - patient is the insured Medical (General) History Medical History History ICD Code HIV infection Seizure disorder neuropathy depression hypercholesterolemia hypogonadism Irritable bowel syndrome hypertension BPH Atrial fibrillation Colonoscopy 08/05, tubular adenoma, five- year followup Surgical History Surgery Date(Month/Year) cholecystectomy ganglion cyst removed on wrist and neck tonsillectomy
== END 2024-08-05 14:08 | disposition home or self-care (01) ==
PROVIDERS: PCP Internal Medicine; Visit Provider Nurse Practitioner Family
DX: I48.19 Other persistent atrial fibrillation (principal); I10 Essential (primary) hypertension; I65.23 Occlusion and stenosis of bilateral carotid arteries
CPT/HCPCS: 99214; G2211

== ENCOUNTER → 2024-08-05 13:20 | Outpatient (BNVA) | payer MEDICARE, SELFPAY | PROVIDERS: PCP Internal Medicine; Visit Provider Nurse Practitioner Family | DX: I10 Essential (primary) hypertension (principal); I48.19 Other persistent atrial fibrillation; I65.23 Occlusion and stenosis of bilateral carotid arteries; Z87.891 Personal history of nicotine dependence | CPT/HCPCS: 99212 ==

== ENCOUNTER 2024-08-18 13:40 | Outpatient (REF) | payer MEDICARE, SELFPAY ==
[2024-08-18 14:04] LABS: MANUAL DIFF FLAG NO
[2024-08-18 14:51] LABS: Basophils Percent Auto 0.6 % (0-2); Eosinophils Absolute Auto 0.1 X10*3/uL (0.0-0.4); Eosinophils Percent Auto 1.3 % (0-4); Hematocrit 37.4 % (42.0-52.0); Hemoglobin 12.6 g/dl (14.0-18.0); Imm Gran Abs Auto 0.02 X10*3/uL (0.00-0.03); Imm Gran Pct Auto 0.4 % (0.0-0.4); Lymphocytes Absolute Auto 1.5 X10*3/uL (1.2-4.9); Lymphocytes Percent Auto 28.1 % (20-40); Mean Corpuscular HGB Conc 33.7 g/dl (31.0-36.0); Mean Corpuscular Hemoglobin 30.7 pg (27.0-33.0); Monocytes Absolute Auto 0.4 X10*3/uL (0.1-1.2); Monocytes Percent Auto 7.2 % (2-11); Neutrophils Absolute Auto 3.3 x10*3/uL (2.0-8.3); Neutrophils Percent Auto 62.4 % (45-73); Platelet Count 161 X10*3/uL (160-400); Red Blood Count 4.11 X10*6/uL (4.60-5.80); Red Cell Distribution Width 12.5 % (11.0-16.0); White Blood Count 5.3 X10*3/uL (4.8-10.8)
[2024-08-18 14:55] LABS: Estimated Average Glucose 157 mg/dL; Hemoglobin A1C 173.6461 umol/L; Hemoglobin A1c % 7.1 % (<6.0); Total Hemoglobin (HGBA1C) 3211.3027 umol/L
[2024-08-18 15:13] LABS: Alanine Aminotransferase 39 U/L (0-40); Albumin Level 4.1 g/dL (3.5-5.0); Alkaline Phosphatase 78 U/L (39-117); Anion Gap 11 (12-20); Aspartate Amino Transferase 34 U/L (5-37); Bilirubin Total 0.3 mg/dL (0.0-1.0); Blood Urea Nitrogen 21 mg/dL (9-16); Calcium 9.1 mg/dL (8.4-10.2); Carbon Dioxide 25 mmol/L (22-29); Chloride 108 mmol/L (96-108); Estimated Glomerular Filt Rate > 60; Glucose Random 145 mg/dL (60-115); Potassium 4.7 mmol/L (3.3-5.1); Sodium 139 mmol/L (135-145); Total Protein 6.7 g/dL (6.5-8.0)
[2024-08-18 15:22] LABS: Anion Gap 12 (12-20); Blood Urea Nitrogen 21 mg/dL (9-16); Calcium 9.1 mg/dL (8.4-10.2); Carbon Dioxide 25 mmol/L (22-29); Chloride 106 mmol/L (96-108); Estimated Glomerular Filt Rate > 60; Glucose Random 145 mg/dL (60-115); Iron 55 mcg/dL (45-160); Percent Iron Saturation 19 % (15-50); Potassium 4.7 mmol/L (3.3-5.1); Sodium 138 mmol/L (135-145); Total Iron Binding Capacity 294 mcg/dL (228-428); Unsaturated Iron Binding 239 ug/dL
[2024-08-18 15:39] LABS: Creatinine Urine 156.58 mg/dL; Microalbum/Creatinine Ratio Ur 15.3 ug/mg cr (<30)
[2024-08-18 16:11] LABS: Free T4 (Free Thyroxine) 0.87 ng/dL (0.71-1.85); Thyroid Stimulating Hormone 2.35 uIU/mL (0.32-4.0)
[2024-08-18 16:37] LABS: CT PCR NOT DETECTED (Not Detect.); NG PCR NOT DETECTED (Not Detect.)
[2024-08-19 08:02] LABS: Syphilis Screen Nonreactive (Nonreactive)
[2024-08-20 09:05] LABS: HIV RNA PCR Qn Copies NOT DETECTED copies/mL (NOT DETECTED); HIV RNA PCR Qn Log Copies NOT DETECTED (NOT DETECTED)
[2024-08-24 16:49] LABS: Absolute CD4 Count 657 cells/uL (490-1740); Absolute CD8 Count 631 cells/uL (180-1170); Absolute Lymphocytes 1616 cells/uL (850-3900); CD4 CD8 Ratio 1.04 (0.86-5.00); Percent CD4 Cells 41 % (30-61); Percent CD8 Cells 39 % (12-42)
== END 2024-08-18 13:41 | disposition home or self-care (01) ==
LOC: HO.LAB 13:40
PROVIDERS: Absent Provider Internal Medicine Infectious Disease; PCP Internal Medicine; Visit Provider Internal Medicine
DX: B20 Human immunodeficiency virus [HIV] disease (principal); E66.811 Obesity, class 1; E66.09 Other obesity due to excess calories; Z68.32 Body mass index [BMI] 32.0-32.9, adult; E11.9 Type 2 diabetes mellitus without complications; D64.9 Anemia, unspecified
CPT/HCPCS: 36415; 80048; 80053; 82043; 82570; 83036; 83540; 84439; 84443; 85025; 86360; 86780; 87491; 87536; 87591

== ENCOUNTER 2024-09-08 10:39 | Outpatient (AMB) | payer MEDICARE, SELFPAY ==
--- NOTE | 2024-08-31 15:29 | MHC.PC.OV ---
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: No Accompanied by: Self / Same As Patient Allergies abacavir [From ZIAGEN] Allergy (Intermediate, Verified 08/05/24 13:35) MOVES FAT IN BODY nevirapine [From Viramune] Allergy (Intermediate, Verified 08/05/24 13:35) HIGH TEMP-WILLA JOHNSONS SYNDROME Tobacco use date assessed: 09/01/24 Fall risk assessment: No Falls in past year Last assessed Fall Risk: 09/01/24 Dental Screening Dental Screen Date: 08/31/24 Did you have a dental visit in the last 12 months?: Yes Did you have a dental problem in the last 6 months where you did not have access to dental care?: No [facility] Medical History (Updated 08/05/24 @ 15:12 by Holly Thomas NP-C) Persistent atrial fibrillation History of seizure HIV positive Paroxysmal atrial fibrillation History of cardioversion HTN (hypertension) Bilateral carotid artery disease Surgical History Hx of tonsillectomy History of surgical removal of ganglion cyst Hx of colonoscopy History of carotid endarterectomy (08/17/18) Hx of cholecystectomy Family History Father Stroke Mother No problems noted. Social History Are you a primary behavioral health care coordinator to a significant other at home: No Do you presently have visiting nurse or other home services: No Patient Tobacco Use Status: Former Tobacco user Tobacco use type: Cigarette Second Hand Smoke Exposure: No Advance Directives Date on File: 01/26/20 Questionnaire PHQ-9 Over the last 2 weeks, how often have you been bothered by any of the following problems? 1. Little interest or pleasure in doing things: not at all 2. Feeling down, depressed, or hopeless: not at all 3. Trouble falling or staying asleep, or sleeping too much: not at all 4. Feeling tired or having little energy: not at all 5. Poor appetite or overeating: not at all 6. Feeling bad about yourself - or that you are a failure or have let yourself or your family down: not at all 7. Trouble concentrating on things, such as reading the newspaper or watching television: not at all 8. Moving or speaking so slowly that other people could have noticed. Or the opposite - being so fidgety or restless that you have been moving around a lot more than usual: not at all 9. Thoughts that you would be better off or of hurting yourself in some way: not at all Total score: 0 Source: Developed by Drs. Iglesia Zarate, Jolanta Blackburn, Errol Lee and colleagues, with an educational kye from [employer]. Thrive Questionnaire Date Thrive assessed: 09/08/24 I am a: Patient Within the past 12 months, did the food you bought not last and you didn't have the money to get more?: Never true Within the past 12 months, did you worry whether your food would run out before you got money to buy more?: Never true Do you have trouble paying for medicines?: No Do you have trouble getting transportation to medical appointments?: No Do you have trouble paying your heating and electricity bill?: No Do you have trouble taking care of your child, family member or friend?: No Do you have trouble with day-to-day activities such as bathing, preparing meals, shopping, managing finances, etc.?: No Are you currently unemployed and looking for a job?: No Are you interested in more education?: No THRIVE Score: 0 AUDIT C Alcohol Use Questionnaire (AUDIT-C) 1. How often do you have a drink containing alcohol?: Never 3. How often do you have six or more drinks on one occasion?: Never Total Score: 0 NÉSTOR-7 AMB Questionnaire NÉSTOR-7 Date NÉSTOR - 7 assessed: 09/01/24 Feeling nervous, anxious, or on edge: 0 = Not at all Not being able to stop or control worryin = Not at all Worrying too much about different things: 0 = Not at all Trouble relaxin = Not at all Being so restless that it is hard to sit still: 0 = Not at all Becoming easily annoyed or irritable: 0 = Not at all Feeling afraid as if something awful might happen: 0 = Not at all Total NÉSTOR-7 score (0-4 normal; 5-9 mild; 10-14 moderate; 15-21 severe): 0 Source: Developed by Drs. Iglesia Zarate, Jolanta Blackburn, Errol Lee and colleagues, with an educational kye from [employer]. Physical exam (Primary Care) Tobacco/Smoking Status: Tobacco use Status Patient Tobacco Use Status Former Tobacco user 06/02/24 11:36 Tobacco use type Cigarette 01/11/22 12:18 Coding
[2024-09-08 09:58] VITALS: BP 134/76; PULSE 85; TEMP 36.1; O2SAT 99; BMI 32.9
--- NOTE | 2024-09-08 09:58 | MHC.PC.OV ---
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 Accompanied by: Self / Same As Patient Allergies abacavir [From ZIAGEN] Allergy (Intermediate, Verified 09/08/24 11:20) MOVES FAT IN BODY nevirapine [From Viramune] Allergy (Intermediate, Verified 09/08/24 11:20) HIGH TEMP-WILLA JOHNSONS SYNDROME Medication List - Last Reconciled 09/08/24 by Josh Carranza MD albuterol sulfate 90 mcg/actuation 2 puffs inhalation Q4-6H PRN alprazolam 0.25 mg PO BID PRN amiodarone mg PO atorvastatin 40 mg PO DAILY cholecalciferol (vitamin D3) 50 mcg PO DAILY efavirenz 600 mg PO DAILY emtricitabine-tenofovir alafen 200-25 mg (Descovy) 1 tab PO DAILY gabapentin 300 mg PO BID loperamide 2 mg PO Q6H PRN metoprolol succinate ER 100 mg PO DAILY multivitamin,[id number] (Complete Multivitamin tablet) 1 tab PO DAILY omeprazole 20 mg PO BID raltegravir (Isentress) 400 mg PO BID rivaroxaban 20 mg PO DAILY terazosin 5 mg PO BEDTIME 90 days trimethoprim 100 mg PO DAILY 90 days valacyclovir 500 mg PO TID PRN vitamin B complex (B Complex-Vitamin B12 tablet) 1 tab PO DAILY Tobacco use date assessed: 09/08/24 Fall risk assessment: No Falls in past year Last assessed Fall Risk: 09/08/24 Dental Screening Dental Screen Date: 09/08/24 Did you have a dental visit in the last 12 months?: Yes Did you have a dental problem in the last 6 months where you did not have access to dental care?: No PFSH Medical History (Updated 09/08/24 @ 11:18 by Josh Carranza MD) Persistent atrial fibrillation History of seizure HIV positive Paroxysmal atrial fibrillation History of cardioversion HTN (hypertension) Bilateral carotid artery disease Surgical History Hx of tonsillectomy History of surgical removal of ganglion cyst Hx of colonoscopy (~01/17/22) History of carotid endarterectomy (08/17/18) Hx of cholecystectomy Family History Father Stroke Mother No problems noted. Social History Housing: House Are you a primary patient care specialist to a significant other at home: No Do you presently have visiting nurse or other home services: No Patient Tobacco Use Status: Former Tobacco user Tobacco use type: Cigarette e-Cigarette/Vaping Use: Former Use Second Hand Smoke Exposure: No Advance Directives Date on File: 01/26/20 service: No Current occupational status: retired Cognitive needs: No Hearing needs: No Vision needs: No Questionnaire PHQ-9 Over the last 2 weeks, how often have you been bothered by any of the following problems? 1. Little interest or pleasure in doing things: not at all 2. Feeling down, depressed, or hopeless: not at all 3. Trouble falling or staying asleep, or sleeping too much: not at all 4. Feeling tired or having little energy: not at all 5. Poor appetite or overeating: not at all 6. Feeling bad about yourself - or that you are a failure or have let yourself or your family down: not at all 7. Trouble concentrating on things, such as reading the newspaper or watching television: not at all 8. Moving or speaking so slowly that other people could have noticed. Or the opposite - being so fidgety or restless that you have been moving around a lot more than usual: not at all 9. Thoughts that you would be better off or of hurting yourself in some way: not at all Total score: 0 Depression Screening Interpretation: Negative Depression Screening Done: Yes Source: Developed by Drs. Iglesia Zarate, Jolanta Blackburn, Errol Lee and colleagues, with an educational kye from [employer]. Thrive Questionnaire Date Thrive assessed: 09/08/24 I am a: Patient Within the past 12 months, did the food you bought not last and you didn't have the money to get more?: Never true Within the past 12 months, did you worry whether your food would run out before you got money to buy more?: Never true Do you have trouble paying for medicines?: No Do you have trouble getting transportation to medical appointments?: No Do you have trouble paying your heating and electricity bill?: No Do you have trouble taking care of your child, family member or friend?: No Do you have trouble with day-to-day activities such as bathing, preparing meals, shopping, managing finances, etc.?: No Are you currently unemployed and looking for a job?: No Are you interested in more education?: No Currently or been in a relationship where the following occur: No concerns reported THRIVE Score: 0 AUDIT C Alcohol Use Questionnaire (AUDIT-C) 1. How often do you have a drink containing alcohol?: Never 3. How often do you have six or more drinks on one occasion?: Never Total Score: 0 NÉSTOR-7 AMB Questionnaire NÉSTOR-7 Date NÉSTOR - 7 assessed: 09/08/24 Feeling nervous, anxious, or on edge: 0 = Not at all Not being able to stop or control worryin = Not at all Worrying too much about different things: 0 = Not at all Trouble relaxin = Not at all Being so restless that it is hard to sit still: 0 = Not at all Becoming easily annoyed or irritable: 0 = Not at all Feeling afraid as if something awful might happen: 0 = Not at all Total NÉSTOR-7 score (0-4 normal; 5-9 mild; 10-14 moderate; 15-21 severe): 0 Source: Developed by Drs. Iglesia Zarate, Jolanta Blackburn, Errol Lee and colleagues, with an educational kye from [employer]. Physical exam (Primary Care) Vital Signs: Last Vital Signs Temp 97 F 09/08/24 09:58 Pulse 85 09/08/24 09:58 BP 134/76 09/08/24 09:58 Pulse Ox 99 09/08/24 09:58 Oxygen Delivery Method Room Air 09/08/24 09:58 Care Plan Goal for BP management: BP in range BMI result Body Mass Index 32.9 BMI Assessment/Plan discussion: High Tobacco/Smoking Status: Tobacco use Status Tobacco use date assessed 09/08/24 09/08/24 10:00 Patient Tobacco Use Status Former Tobacco user 09/08/24 10:00 Tobacco use type Cigarette 09/08/24 10:00 e-Cigarette/Vaping Use Former Use 09/08/24 10:00 PHQ-9: PHQ-9 Score PHQ-9: Total score 0 09/08/24 10:57 Depression Screening Interpretation: Negative Thrive Assessment: Date of Thrive Assessment Date Thrive assessed 09/08/24 09/08/24 10:00 Currently or been in a relationship where the following occur: No concerns reported Advance Care Planning discussion: Exists, not on file Date of discussion: 09/08/24 Who was present: Patient Forms completed: MOLST Coding Level of Care Code New Pt Level 4 (15758) Complex EM visit Add On G2211 Diagnoses HTN (hypertension) I10 Paroxysmal atrial fibrillation I48.0 HIV positive Z21 Additional Codes Vital Signs *Quality* - Advance Care Planning discussion: Exists, not on file ([id number]) Assessment & Plan Assessment & Plan (1) HTN (hypertension): Code(s): I10 - Essential (primary) hypertension Category: Medical Plan: BP in range (2) Paroxysmal atrial fibrillation: Code(s): I48.0 - Paroxysmal atrial fibrillation Category: Medical Plan: Attempted cardioversion was not succesful. Continue rate control and anticoagulation (3) HIV positive: Comment: Dx 1990 Code(s): Z21 - Asymptomatic human immunodeficiency virus [HIV] infection status Category: Medical Plan: Continue current medications Plan History of Present Illness The patient is a 79-year-old male presenting for a follow-up visit focused on the management of his chronic health conditions. His medical history includes Type 2 diabetes mellitus, for which his most recent HbA1c was 7.1. He attributes the elevated glucose levels partly to his HIV treatment. The patient has been managing his HIV since 1990, with antiretroviral medication and regular monitoring, reporting a stable health status under the care of an HIV specialist. Atrial fibrillation has been a concern, with recent attempts at cardioversion proving ineffective, resulting in medication adjustments. He is also dealing with arthritis and chronic back pain, addressing these issues with knpz-fjf-vktrqtt analgesics as needed. The patient reports balance issues, though he has not experienced any falls, and he has had cataract surgery with subsequent good visual outcomes. 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 - Lives independently, owns an electric car, reporting limited driving. - Enjoys working with cars and has interests in [employer] automobiles. 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 - Experiences minor balance issues that limit certain activities but adapts by being cautious. Review of Systems - Constitutional: Reports stable health with no recent acute illnesses. - Ophthalmologic: Denies issues; status post cataract surgery with intraocular lens implants. - Cardiovascular: Reports atrial fibrillation; denies falls associated with dizziness. - Respiratory: Denies any respiratory complaints. - Gastrointestinal: Denies gastrointestinal symptoms. - Musculoskeletal: Reports chronic back pain and arthritis. - Neurological: Reports balance issues with sudden head movements. - Psychiatric: Reports anxiety under control; denies recent exacerbations. - Endocrine: Reports slight elevation in glucose levels. Physical Exam General: Cooperative and healthy appearing Nutritional Appearance: Well nourished Orientation/consciousness: Patient oriented x3 Limitations: No limitations Head: Normal to inspection General: Appearance normal, both eyes and all related structures Neck: Normal visual inspection Chest: Normal palpation of entire chest wall Respiratory: N ormal respiratory effort Neurology: Patient oriented x3, reports balance issues when turning head quickly, no falls reported. Results - Labs: HbA1c of 7.1 - Tests and Diagnostics: CD4 count approximately 680, recent cystoscopy showing bladder inflammation. Plan 1. Type 2 Diabetes Mellitus - Monitor HbA1c semi-annually and continue lifestyle modifications. 2. Human Immunodeficiency Virus Hiv Infection - Maintain current antiretroviral therapy and regular specialist follow-ups. 3. Atrial Fibrillation - Continue Xarelto; monitor symptoms and educate patient. 4. Back Pain - Use ibuprofen as needed, encourage activity. 5. Anxiety - Prescribe alprazolam as needed, monitor symptoms. 6. Arthritis - Manage symptoms with ibuprofen. 7. Balance Issues - Advise on fall prevention strategies. 8. Status Post Cataract Surgery - Routine monitoring post lens implant. Discussion Notes During the visit, we discussed the management of Type 2 diabetes, with recent HbA1c at 7.1. Encouraged continuation of lifestyle and dietary adjustments, acknowledging the potential impact of HIV therapy on blood glucose. We also reviewed his antiretroviral regimen, highlighting its importance in stabilizing his HIV infection, with regular CD4 monitoring essential for managing his health. For atrial fibrillation, ongoing use of Xarelto was emphasized for stroke prevention, and previous attempts at cardioversion were noted as ineffective, leading to medication adjustments. Anxiety management with alprazolam remains stable, and chronic back pain and arthritis are being addressed with ibuprofen as needed. Balance issues were acknowledged, advising caution and strategic movement to prevent falls. Caitaract surgery completed previously showed successful outcomes with intraocular implants, requiring no additional interventions. Follow-up appointment has been scheduled for six months later to reassess these conditions and update management strategies accordingly. Ensured understanding and agreement with the proposed management plans and necessary lifestyle adaptations. Patient Instructions - Continue following your dietary and lifestyle plans to help control your blood sugar levels. - Remember to take all your medications as prescribed, including your HIV medications and Xarelto. - Take ibuprofen only as needed for any pain, and use it sparingly. - Try to move slowly if you need to turn your head or change directions to help with balance. - Keep being cautious to prevent falls since you've had some balance issues. - Call if any new or worsening symptoms appear, especially regarding your heart rhythm or dizziness. - Bring forms that need signing to your next visit, and ensure your healthcare proxy documents are in a visible location at home. Orders: Orders Hemoglobin A1c Today I10 - Essential (primary) hypertension, I48.0 - Paroxysmal atrial fibrillation, Z21 - Asymptomatic human immunodeficiency virus [HIV] infection status Varicella IgG Antibody Today I10 - Essential (primary) hypertension, I48.0 - Paroxysmal atrial fibrillation, Z11.9 - Encounter for screening for infectious and parasitic diseases, unspecified, Z21 - Asymptomatic human immunodeficiency virus [HIV] infection status Complete Blood Count no Diff Today I10 - Essential (primary) hypertension, I48.0 - Paroxysmal atrial fibrillation, Z21 - Asymptomatic human immunodeficiency virus [HIV] infection status Basic Metabolic Panel Today I10 - Essential (primary) hypertension, I48.0 - Paroxysmal atrial fibrillation, Z21 - Asymptomatic human immunodeficiency virus [HIV] infection status Lipid Panel Today I10 - Essential (primary) hypertension, I48.0 - Paroxysmal atrial fibrillation, Z21 - Asymptomatic human immunodeficiency virus [HIV] infection status Liver Panel Today I10 - Essential (primary) hypertension, I48.0 - Paroxysmal atrial fibrillation, Z21 - Asymptomatic human immunodeficiency virus [HIV] infection status UA and rflx microscopic Today I10 - Essential (primary) hypertension, I48.0 - Paroxysmal atrial fibrillation, Z21 - Asymptomatic human immunodeficiency virus [HIV] infection status Microalbumin, Random (w Creat) Today I10 - Essential (primary) hypertension, I48.0 - Paroxysmal atrial fibrillation, Z21 - Asymptomatic human immunodeficiency virus [HIV] infection status Medications: New atorvastatin 40 mg PO DAILY 90 tabs 1RF
--- OUTSIDE RECORDS SUMMARY | 2024-09-08 12:07 | XMS_ITS | Patient Health Record ---
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 (Z79.01) Active confirmed Problem 829575859 Personal history of colonic polyps (Z86.010) Active confirmed Problem 469570238 Irritable bowel syndrome with diarrhea (K58.0) Active confirmed Problem [id number] halfway (current) use of aspirin (Z79.82) Active confirmed Problem Diverticulosis of colon (018732599) Diverticulosis of colon (K57.30) Active confirmed Plan Of Treatment Future Test Test Name Order Date COLONOSCOPY 06/19/2016 COLONOSCOPY 01/02/2022 Insurance Providers Payer Name Payer Address Payer Phone Subscriber Number Group Number Insured Name Patient Relationship to Insured Coverage Start Date Coverage End Date MEDICARE OF [place] [address] [place] [address] [phone] [id number] DILMA FENTON Self - patient is the insured MED[employer] ATTN CLAIMS [address] [place] [phone] [id number] DILMA FENTON Self - patient is the insured Medical (General) History Medical History History ICD Code HIV infection Seizure disorder neuropathy depression hypercholesterolemia hypogonadism Irritable bowel syndrome hypertension BPH Atrial fibrillation Colonoscopy 08/05, tubular adenoma, five- year followup Surgical History Surgery Date(Month/Year) cholecystectomy ganglion cyst removed on wrist and neck tonsillectomy
== END 2024-09-08 11:15 | disposition home or self-care (01) ==
LOC: HO.HMCHD 10:40
PROVIDERS: PCP Internal Medicine; Visit Provider Internal Medicine
DX: I10 Essential (primary) hypertension (principal); I48.0 Paroxysmal atrial fibrillation; Z21 Asymptomatic human immunodeficiency virus [HIV] infection status; Z00.00 Encounter for general adult medical examination without abnormal findings

== ENCOUNTER → 2024-09-08 10:39 | Outpatient (BNVA) | payer MEDICARE, SELFPAY | PROVIDERS: PCP Internal Medicine; Visit Provider Internal Medicine | DX: I10 Essential (primary) hypertension (principal); I48.0 Paroxysmal atrial fibrillation; Z21 Asymptomatic human immunodeficiency virus [HIV] infection status | CPT/HCPCS: 99202 ==

== ENCOUNTER → 2024-10-27 13:36 | Outpatient (REF) | payer MEDICARE, SELFPAY ==
--- NOTE | 2024-10-27 13:39 | CA_ITS ---
Transthoracic Echocardiogram Patient (Last, First, Middle): Toney Martinez, Gender: Male Date of : 1945 Age: 79 Procedure Date: 10/27/2024 Procedure Type: Transthoracic Echocardiogram Location: OP Height: 177.8 cm Weight: 100.7 kg BSA: 2.18 m2 Heart Rate: 57 bpm BP: 132 / 68 mmHg Commissary Superintendent: TO Referring MD: Louie Bustamante MD Bar Turner: Louie Bustamante MD Symptoms: I48.0 - Paroxysmal atrial fibrillation Study Quality: Adequate w contrast ECG Rhythm: Atrial Fibrillation Conclusions: - 1. Low normal LV ejection fraction of 50-55% 2. Mild biatrial enlargement 3. Calcific aortic valve changes noted with normal cardiac valvular Dopplers 4. Normal RV systolic pressure 5. Mildly dilated ascending aorta at 3.9 cm 6. No gross pericardial effusion Findings Procedure Information Contrast agent, definity, is being given per protocol without apparent complications. Left Ventricle Normal left ventricular cavity size. There is normal left ventricular wall thickness. The left ventricular systolic function is low normal. The visually estimated ejection fraction is between 50-55%. Diastolic function is indeterminate on the basis of available data. Right Ventricle Normal right ventricular cavity size. There is moderately decreased right ventricular systolic function. Atria The left atrium is mildly dilated. There is no evidence of interatrial shunt. The right atrium is mildly dilated. Aortic Valve There is mild calcification of the aortic valve. There is no aortic valve stenosis. There is no aortic valve regurgitation. Mitral Valve There is mild anterior and posterior mitral leaflet thickening. There is mild mitral valve regurgitation. There is no mitral valve stenosis. Pulmonic Valve The pulmonic valve was not well visualized. Tricuspid Valve Likely normal tricuspid valve structure and function. There is trace tricuspid valve regurgitation. The right ventricular systolic pressure is normal. The right ventricular systolic pressure is 24 mmHg. Normal right atrial pressure. There is no evidence of pulmonary hypertension. Great Vessels The pulmonary artery was not well visualized. There is mild dilatation of the ascending aorta measuring 3.90 cm. Venous The inferior vena cava is normal in size and collapses greater than 50% with inspiration. Pericardium/Pleural There is no evidence of pericardial effusion. Prior Study Comparison Changes noted compared to prior study dated: 05/02/2023. LV ejection fraction is marginally reduced Measurements 2D Linear Measurements IVSd: 1.01 0.6-0.9/0.6-1.0 cm LVIDd: 4.76 3.9-5.3/4.2-5.9 cm LVIDd Index: 2.18 2.4-3.2/2.2-3.1 cm/m2 LVIDs: 2.93 2.0-3.6 cm LVPWd: 0.90 0.7-1.1 cm LA Diam: 3.60 2.7-3.8/3.0-4.0 cm LAIDs Index: 1.65 1.5-2.3 cm/m2 LV Mass: 197.00 67-162/88-224 g LV Mass Index: 90.37 43-95/49-115 g/m2 LVOT Diam: 2.10 3.0+(-)1.3 cm 2D Systolic Function EF 4C: 56.00 >55% EF 2C: 51.60 >55% EF BiP: 52.60 >55% Mitral Valve MV Pk E: 1.03 MV Decel Time: 170.00 E'Lateral: 6.49 E'Medial: 7.33 E/E' Med: 14.10 E/E' Lat: 15.90 PHT: 50.00 MVA PHT: 4.40 Decel [place]: 6.17 Aortic Valve AoV Pk Eric: 0.75 AoV Pk Grad: 2.00 KATELIN: 3.25 LVOT LVOT Pk Eric: 0.70 LVOT Mn Eric: 0.44 LVOT VTI: 0.13 LVOT Pk Grad: 2.00 LVOT Mn Grad: 1.00 LVOT Diam: 2.10 LVOT Area: 3.46 Diastolic Function MV Pk E: 1.03 E'Medial: 7.33 E/E' Med: 14.10 E' Laterial: 6.49 E/E' Lat: 15.90 Right Ventricle TAPSE (mm): 12.70 TVS' Eric: 8.40 Tricuspid Valve TR Pk Eric: 1.98 TR Pk Grad: 16.00 RA Press: 8.00 RVSP: 24.00 Great Vessels Aorta Sinus of Valsalva: 3.99 2.0-3.5 cm Ao Asc: 3.90 2.1-3.4 cm Updated in Other Vendor System with Status of Final Louie Bustamante MD electronically signed on 10/27/2024 3:54:30 PM with status of Final
--- OUTSIDE RECORDS SUMMARY | 2024-10-27 14:26 | XMS_ITS | Patient Health Record ---
[facility] Address [address] [place] [address] Care Team Providers Care Vibrating Screen Operator Name Role Phone Ankur Calloway MD Primary Care Provider Jesse Simpson Unavailable [phone] Allergies Allergen (clinical drug ingredient) Drug/Non Drug Allergy documented on EMR Reaction Allergy Type Onset Date Status Neveripine Unknown Drug Allergy Active abacavir Ziagen Unknown Drug Allergy Active Reason For Referral No Information Medications Medication SIG (Take, Route, Frequency, Duration) Notes Start Date End Date Status Fish Oil Active Vitamin B Complex Ac tive ALPRAZolam Active Symbicort Active Aspirin Active Tums Active Physical Therapy . . . 2-3x/week; Durat ion: 3-4 weeks Active Vitamin D Active Daily Multivitamin A ctive Physical Therapy . . . 2-3x/week; Durat ion: 3-4 weeks 10/16/2015 Not-Taking Gabapentin Active Atorvastatin Calcium Active Flomax Active Aleve Active levOCARNitine Active Loperamide HCl Activ e Sustiva Active Omeprazole Active Viread Active ProAir HFA Active lamiVUDine-Zidovudine Active Benadryl Active Isentress Active Ibuprofen Active Problems Problem Type SNOMED Code ICD Code Onset Dates Problem Status W/U Status Risk Notes Problem Pain in left foot (029110189871 107) Pain in left foot (M79.672) Active confirmed Plan Of Treatment Pending Test Test Name Order Date [id number] TENDON SHEATH/LIGAMENT 0 11/20/2015 Insurance Providers Payer Name Payer Address Payer Phone Subscriber Number Group Number Insured Name Patient Relationship to Insured Coverage Start Date Coverage End Date Medicare National Govt Svcs Inc [address] [place] [address] [id number] Toney Martinez Self - patient is the insured 6 [facility] [address] [place] [address] [id number] Toney Martinez Self - patient is the insured Medical (General) History Medical History History ICD Code Anxiety Back,Hip,and Knee pain Cholesterol Epilepsy Seizures Gall bladder problems Headaches Human immunodeficiency virus (HIV), posi tive Neuropathy Reflux Sciatica chronic sinusitis Measles Chicken pox Surgical History Surgery Date(Month/Year) gall bladder 1995 ganglion cyst 1979
--- OUTSIDE RECORDS SUMMARY | 2024-10-27 14:26 | XMS_ITS | Patient Health Record ---
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 (Z79.01) Active confirmed Problem 082626621 Personal history of colonic polyps (Z86.010) Active confirmed Problem 487862077 Irritable bowel syndrome with diarrhea (K58.0) Active confirmed Problem 118179135 [facility] (current) use of aspirin (Z79.82) Active confirmed Problem Diverticulosis of colon (515717706) Diverticulosis of colon (K57.30) Active confirmed Plan Of Treatment Future Test Test Name Order Date COLONOSCOPY 06/19/2016 COLONOSCOPY 01/02/2022 Insurance Providers Payer Name Payer Address Payer Phone Subscriber Number Group Number Insured Name Patient Relationship to Insured Coverage Start Date Coverage End Date MEDICARE OF [place] [address] [place] [address] [phone] [id number] DILMA FENTON Self - patient is the insured MED[employer] ATTN CLAIMS [address] [place] [address] [id number] DILMA FENTON Self - patient is the insured Medical (General) History Medical History History ICD Code HIV infection Seizure disorder neuropathy depression hypercholesterolemia hypogonadism Irritable bowel syndrome hypertension BPH Atrial fibrillation Colonoscopy 08/05, tubular adenoma, five- year followup Surgical History Surgery Date(Month/Year) cholecystectomy ganglion cyst removed on wrist and neck tonsillectomy
== END ==
LOC: HO.CARD 13:36
PROVIDERS: PCP Internal Medicine; Visit Provider Internal Medicine Cardiovascular Disease
DX: I48.0 Paroxysmal atrial fibrillation (principal)
CPT/HCPCS: 93306; Q9957

== ENCOUNTER → 2024-10-27 13:39 | Outpatient (BNV) | payer MEDICARE, SELFPAY | PROVIDERS: PCP Internal Medicine; Visit Provider Internal Medicine Cardiovascular Disease | DX: I34.0 Nonrheumatic mitral (valve) insufficiency (principal); I35.8 Other nonrheumatic aortic valve disorders; I51.7 Cardiomegaly | CPT/HCPCS: 93306 ==

== ENCOUNTER 2025-02-15 09:52 | Outpatient (AMB) | payer MEDICARE, SELFPAY ==
--- NOTE | 2025-02-15 09:59 | MHC.OFFVIS ---
Vital Signs 02/15/25 10:00 Height 5 ft 10 in Weight 227 lb 1.218 oz BMI 32.6 BP 150/80 H Blood Pressure Location Lt brachial Position Sitting Pulse 60 Intake Visit Reasons: 6m follow up Intake Note: 6 month follow-up with ekg feelng good Senior Oracle Soa Developer Required: No Allergies abacavir (From ZIAGEN) Allergy (Intermediate, Verified 09/08/24 11:20) MOVES FAT IN BODY nevirapine (From Viramune) Allergy (Intermediate, Verified 09/08/24 11:20) HIGH TEMP-WILLA JOHNSONS SYNDROME Medication List - Last Reconciled 02/15/25 by Louie Bustamante MD albuterol sulfate 90 mcg/actuation 2 puffs inhalation Q4-6H PRN alprazolam 0.25 mg PO BID PRN atorvastatin 40 mg PO DAILY cholecalciferol (vitamin D3) 50 mcg PO DAILY efavirenz 600 mg PO DAILY emtricitabine-tenofovir alafen 200-25 mg (Descovy) 1 tab PO DAILY gabapentin 300 mg PO BID loperamide 2 mg PO Q6H PRN metoprolol succinate ER 100 mg PO DAILY multivitamin,vy-iccr-qwiuvsah (Complete Multivitamin tablet) 1 tab PO DAILY omeprazole 20 mg PO BID raltegravir (Isentress) 400 mg PO BID rivaroxaban 20 mg PO DAILY terazosin 5 mg PO BEDTIME 90 days trimethoprim 100 mg PO DAILY 90 days valacyclovir 500 mg PO TID PRN vitamin B complex (B Complex-Vitamin B12 tablet) 1 tab PO DAILY HPI Comments Details: Toney comes for follow-up. Patient denies any worsening symptoms. He does complain of exertional shortness of breath when he goes up and down a flight of stairs although he said he has also gained some weight. He denies any orthopnea, PND, leg edema. Taking all his medications. There was some confusion about his medication but seems like he has not been taking amiodarone since July when it was discontinued. He is taking higher dose of metoprolol. No bleeding issues or neurologic events. Denies any palpitations, lightheadedness, syncope. Denies any exertional chest pain. [facility] Medical History Persistent atrial fibrillation Paroxysmal atrial fibrillation Chronic atrial fibrillation History of seizure HIV positive History of cardioversion HTN (hypertension) Bilateral carotid artery disease Surgical History Hx of tonsillectomy History of surgical removal of ganglion cyst Hx of colonoscopy (~01/17/22) History of carotid endarterectomy (08/17/18) Hx of cholecystectomy Family History Father Stroke Mother No problems noted. Social History Housing: House Are you a primary group care worker to a significant other at home: No Do you presently have visiting nurse or other home services: No Patient Tobacco Use Status: Former Tobacco user Tobacco use type: Cigarette e-Cigarette/Vaping Use: Former Use Second Hand Smoke Exposure: No Advance Directives Date on File: 01/26/20 service: No Current occupational status: retired Cognitive needs: No Hearing needs: No Vision needs: No Review of Systems Const Denies chills, Denies fatigue, Denies fever(s), Denies frequent falls, Denies weakness, Denies weight gain and Denies weight loss ENT Denies dizziness Card Denies chest pain, Denies leg edema, Denies lightheadedness, Denies palpitations, Denies dyspnea, Denies dyspnea on exertion, Denies orthopnea and Denies other (loss of consciousness) Resp Denies cough, Denies dyspnea and Denies dyspnea on exertion GI Denies hematochezia and Denies change in stool character Musc Denies abnormal gait, Denies muscle weakness, Denies numbness, Denies radiating pain into limb and Denies tingling Neuro Denies abnormal gait, Denies dizziness, Denies frequent falls, Denies numbness, Denies tingling and Denies weakness Endo Denies fatigue and Denies palpitations Physical Exam Vital Signs: Last Vital Signs Pulse 60 02/15/25 10:00 BP 150/80 H 02/15/25 10:00 BMI result Body Mass Index 32.6 Const General: cooperative, healthy appearing, comfortable and no acute distress Orientation/consciousness: patient oriented x3 Neck Neck: Yes normal visual inspection and Yes no JVD Resp Effort & Inspection: normal respiratory effort Auscultation: clear to auscultation bilaterally, no rales, no rhonchi and no wheezes Cardio Rate: regular rate Rhythm: abnormal rhythm Heart sounds: S1 normal heart sound present, S2 normal heart sound present, no gallops, no murmurs and no rubs Neuro General: patient oriented x3 Extrem General: Yes normal to inspection, No no pedal edema and No calf tenderness Psych Appearance: grossly normal Mental Status: mental status grossly normal Speech and movement: Normal speech and movement present Office Procedures EKG Details: EKGs shows atrial fibrillation at 60 beats per minute 50913-[id number], Complete Assessment & Plan Assessment & Plan (1) Chronic atrial fibrillation: Comment: Has failed rhythm control approach. Plan to maintain rate control approach, July 2024 Code(s): I48.20 - Chronic atrial fibrillation, unspecified Category: Medical Plan: Chronic atrial fibrillation, plan for maintain rate control approach since July as he has failed rhythm control approach despite amiodarone therapy. He has not developed any significant worsening symptoms at this point time. Although discussed complications related to chronic atrial fibrillation including development of heart failure syndromes. These were discussed with him. Continue current metoprolol dose. Follow-up Holter monitor in 6 months time. Continue full oral anticoagulation, currently on Xarelto 20 mg daily. Semi annual renal function test and annual CBC should be checked. Advised to call me with any new symptoms. (2) HTN (hypertension): Code(s): I10 - Essential (primary) hypertension Category: Medical Plan: Hypertension which is currently well optimized on metoprolol as well as terazosin therapy. He is currently doing well from that perspective. Advised to monitor blood pressure at home maintain a log. Advised to participate in regular activity and participate in aggressive weight loss program. Will follow up in the clinic in 6 months time after an echocardiogram. Thank you for allowing me to partake in his care Orders: Orders CA echo transthoracic complete 6 Months I48.20 - Chronic atrial fibrillation, unspecified ECG 3 day holter monitor 6 Months I48.20 - Chronic atrial fibrillation, unspecified Coding Level of Care Code Est Pt Level 4 (41917) Complex EM visit Add On G2211 Diagnoses Chronic atrial fibrillation I48.20 HTN (hypertension) I10 CPT Codes EKG - CPT: 57518-[id number], Complete ([id number])
[2025-02-15 10:00] VITALS: BP 150/80; PULSE 60; BMI 32.6
--- OUTSIDE RECORDS SUMMARY | 2025-02-15 11:36 | XMS_ITS | Patient Health Record ---
Author Organization [facility] Address [address] [place] [address] Care Team Providers Care Mayonnaise Mixer Name Role Phone Brodie (RETIRED) Ankur MEMBRENO Primary Care Provide r Unavailable Mike Aquino Jr Unavailable Lindsay Blas Unavailable Unavailable Allergies [...] Vitamin - 1 tablet Orally Once a day; Duration: 30 day(s) Active Vitamin B Complex 1 [...] 500 MG 1 tablet Orally Once a day; Duration: 10 day(s) Active Tums 500 MG 1 tablet Orally prn Active ProAir HFA 108 (90 Base) MCG/ACT 1 puff as needed Inhalation every 4 hrs Active Xarelto 20 MG 1 tablet with food Orally Once a day Active Ipratropium [place] 0.03 % 2 sprays in e ach nostril Nasally Twice a day; Duration: 30 day(s) Active Multaq 400 MG 1 tablet with meals Orally Twice a day Active Albuterol Sulfate 108 (90 Base) MCG/ACT 1 puff as needed Inhalation every 4 hrs Active MiraLax (colon prep) 17 GM/SCOOP mixed with Gatorade or Crystal Light Orally begin at 5:00 p.m. the day before the procedure; Duration: 1 day 01/02/2022 Active Metoprolol Succinate ER 50 MG 1 tablet Orally Once a day; Duration: 30 day(s) Active Colyte with Flavor Packs 240 GM As directed Orally Over the specified time.; Duration: 1 day(s) 06/19/2016 Active Sustiva 600 MG 1 Orally qd Act viri Isentress 400 MG 1 tablet Orally Twic e a day Active Immunizations Vaccine Route Administration Date Status Comme nts Flu vaccine no Preserv 3 and > Unknown 01/30/2016 Admin istered Influenza Unknown 03/13/2021 Administered Problems Problem Type SNOMED Code ICD Code Onset Dates Problem Status W/U Status Risk Notes Problem Colon cancer screening (857161859) Colon cancer screening (Z12.11) Active confirmed Problem Long-term current use of anticoagulant (663645552) 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 (Z79.01) Active confirmed Problem History of polyp of colon (situation) (784531924) Personal history of colonic polyps (Z86.010) Active confirmed Problem Irritable bowel syndrome with diarrhea (369189854) Irritable bowel syndrome with diarrhea (K58.0) Active confirmed Problem Long-term current use of antiplatelet drug (605500633744219) 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) use of aspirin (Z79.82) Active confirmed Problem Diverticulosis of colon (709201661) Diverticulosis of colon (K57.30) Active confirmed Plan Of Treatment Future Test Test Name Order Date COLONOSCOPY 06/19/2016 COLONOSCOPY 01/02/2022 Insurance Providers Payer Name Payer Address Payer Phone Subscriber Number Group Number Insured Name Patient Relationship to Insured Coverage Start Date Coverage End Date MED[place]ARE OF [place] [address] [place] [address] [id number] DILMA FENTON Self - patient is the insured MEDEX ATTN CLAIMS [address] [place] [address] [phone] [id number] DILMA FENTON Self - patient is the insured Medical (General) History Medical History History ICD Code HIV infection Seizure disorder neuropathy depression hypercholesterolemia hypogonadism Irritable bowel syndrome hypertension BPH Atrial fibrillation Colonoscopy 08/05, tubular adenoma, five- year followup Surgical History Surgery Date(Month/Year) cholecystectomy ganglion cyst removed on wrist and neck tonsillectomy
--- OUTSIDE RECORDS SUMMARY | 2025-02-15 11:36 | XMS_ITS | Patient Health Record ---
[facility] Address [address] [place] [address] Care Team Providers Care Irrigation Technician Name Role Phone Ankur Calloway MD Primary Care Provider Jesse Vernon Unavailable [phone] Allergies Allergen (clinical drug ingredient) Drug/Non Drug [...] Risk Notes Problem Pain in left foot (546408057645 107) Pain in left foot (M79.672) Active confirmed Plan Of Treatment Pending Test Test Name Order Date ,[id number] TENDON SHEATH/LIGAMENT 0 11/20/2015 Insurance Providers Payer Name Payer Address Payer Phone Subscriber Number Group Number Insured Name Patient Relationship to Insured Coverage Start Date Coverage End Date Medicare National Govt Svcs Inc [address] [place] [address] [phone] [id number] Toney Martinez Self - patient is the insured 6 [facility] [address] [place] [address] [phone] [id number] Toney Martinez Self - patient is the insured Medical (General) History Medical History History ICD Code Anxiety Back,Hip,and Knee pain Cholesterol Epilepsy Seizures Gall bladder problems Headaches Human immunodeficiency virus (HIV), posi tive Neuropathy Reflux Sciatica chronic sinusitis Measles Chicken pox Surgical History Surgery Date(Month/Year) gall bladder 1995 ganglion cyst 1980
== END 2025-02-15 10:23 | disposition home or self-care (01) ==
LOC: HO.HCS 09:53
PROVIDERS: PCP Internal Medicine; Visit Provider Internal Medicine Cardiovascular Disease
DX: I48.20 Chronic atrial fibrillation, unspecified (principal); I10 Essential (primary) hypertension
CPT/HCPCS: 93010; 99214; G2211

== ENCOUNTER → 2025-02-15 09:52 | Outpatient (BNVA) | payer MEDICARE, SELFPAY | PROVIDERS: PCP Internal Medicine; Visit Provider Internal Medicine Cardiovascular Disease | DX: I48.20 Chronic atrial fibrillation, unspecified (principal); I10 Essential (primary) hypertension; R94.31 Abnormal electrocardiogram [ECG] [EKG] | CPT/HCPCS: 93005; 99212 ==

== ENCOUNTER 2025-02-21 12:48 | Outpatient (REF) | payer MEDICARE, SELFPAY ==
[2025-02-21 13:05] LABS: MANUAL DIFF FLAG NO
[2025-02-21 13:13] LABS: Hematocrit 39.9 % (42.0-52.0); Hemoglobin 13.4 g/dl (14.0-18.0); Imm Gran Pct Auto 0.2 % (0.0-0.4); Mean Corpuscular HGB Conc 33.6 g/dl (31.0-36.0); Mean Corpuscular Hemoglobin 30.7 pg (27.0-33.0); Mean Corpuscular Volume 91.3 fL (80.0-98.0); Platelet Count 193 X10*3/uL (160-400); Red Blood Count 4.37 X10*6/uL (4.60-5.80); White Blood Count 5.2 X10*3/uL (4.8-10.8)
[2025-02-21 13:14] LABS: Imm Gran Abs Auto 0.01 X10*3/uL (0.00-0.03); Lymphocytes Absolute Auto 1.5 X10*3/uL (1.2-4.9); NRBC Abs Auto 0.000 X10*3/uL (0.0-0.012); NRBC Pct Auto 0.0 /100WBC (0.0-0.2)
[2025-02-21 13:28] LABS: Alanine Aminotransferase 44 U/L (0-40); Albumin Level 4.6 g/dL (3.5-5.0); Alkaline Phosphatase 85 U/L (39-117); Anion Gap 10 (12-20); Aspartate Amino Transferase 47 U/L (5-37); Blood Urea Nitrogen 16 mg/dL (9-16); Calcium 9.2 mg/dL (8.4-10.2); Carbon Dioxide 28 mmol/L (22-29); Chloride 106 mmol/L (96-108); Estimated Glomerular Filt Rate > 60; Potassium 4.8 mmol/L (3.3-5.1); Sodium 139 mmol/L (135-145); Total Protein 7.2 g/dL (6.5-8.0)
--- OUTSIDE RECORDS SUMMARY | 2025-02-21 16:15 | XMS_ITS | Patient Health Record ---
Author Organization [facility] Address [address] [place] [address] Care Team Providers Care Design Supervisor Name Role Phone Ankur Calloway MD Primary Care Provider Jesse Vernon Unavailable [phone] Allergies Allergen (clinical drug ingredient) Drug/Non Drug [...] Risk Notes Problem Pain in left foot (893788127080 107) Pain in left foot (M79.672) Active confirmed Plan Of Treatment Pending Test Test Name Order Date ,[id number] TENDON SHEATH/LIGAMENT 0 11/20/2015 Insurance Providers Payer Name Payer Address Payer Phone Subscriber Number Group Number Insured Name Patient Relationship to Insured Coverage Start Date Coverage End Date Medicare National Govt Svcs Inc [address] [place] [address] [phone] [id number] Toeny Martinez Self - patient is the insured 6 [facility] [address] [place] [address] [phone] [id number] Toney Martinez Self - patient is the insured Medical (General) History Medical History History ICD Code Anxiety Back,Hip,and Knee pain Cholesterol Epilepsy Seizures Gall bladder problems Headaches Human immunodeficiency virus (HIV), posi tive Neuropathy Reflux Sciatica chronic sinusitis Measles Chicken pox Surgical History Surgery Date(Month/Year) gall bladder 1995 ganglion cyst 1980
--- OUTSIDE RECORDS SUMMARY | 2025-02-21 16:15 | XMS_ITS | Patient Health Record ---
Author Organization [facility] Address [address] [place] [address] Care Team Providers Care Home Visit Field Care Manager Name Role Phone Brodie (RETIRED) Ankur MEMBRENO Primary Care Provide r Unavailable Mike Aquino Jr Unavailable [phone] Lindsay Blas Unavailable Unavailable Allergies Allergen (clinical [...] food Orally Once a day Active Ipratropium [place] 0.03 % 2 sprays in e ach [...] Status Risk Notes Problem Colon cancer screening (098820510) Colon cancer screening (Z12.11) Active confirmed Problem Long-term current use of anticoagulant (933691834) 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.01) Active confirmed Problem History of polyp of colon (situation) (334094168) Personal history of colonic polyps (Z86.010) Active confirmed Problem Irritable bowel syndrome with diarrhea (333306299) Irritable bowel syndrome with diarrhea (K58.0) Active confirmed Problem Long-term current use of antiplatelet drug (029968706057403) 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 (Z79.82) Active confirmed Problem Diverticulosis of colon (092871324) Diverticulosis of colon (K57.30) Active confirmed Plan Of Treatment Future Test Test Name Order Date COLONOSCOPY 06/19/2016 COLONOSCOPY 01/02/2022 Insurance Providers Payer Name Payer Address Payer Phone Subscriber Number Group Number Insured Name Patient Relationship to Insured Coverage Start Date Coverage End Date MED[place]ARE OF [place] [address] [place] [address] [id number] DILMA FENTON Self - patient is the insured MED[employer] ATTN CLAIMS [address] [place] [address] [id number] DILMA FENTON Self - patient is the insured Medical (General) History Medical History History ICD Code HIV infection Seizure disorder neuropathy depression hypercholesterolemia hypogonadism Irritable bowel syndrome hypertension BPH Atrial fibrillation Colonoscopy 08/05, tubular adenoma, five- year followup Surgical History Surgery Date(Month/Year) cholecystectomy ganglion cyst removed on wrist and neck tonsillectomy
[2025-02-22 15:08] LABS: HIV RNA PCR Qn Copies 48 copies/mL (NOT DETECTED); HIV RNA PCR Qn Log Copies 1.68 (NOT DETECTED)
[2025-02-25 17:59] LABS: Absolute CD8 Count 521 cells/uL (180-1170); Percent CD8 Cells 35 % (12-42)
== END 2025-02-21 12:49 | disposition home or self-care (01) ==
LOC: HO.LAB 12:48
PROVIDERS: PCP Student in an Organized Health Care Education/Training Program; Visit Provider Nurse Practitioner
DX: B20 Human immunodeficiency virus [HIV] disease (principal)
CPT/HCPCS: 36415; 80053; 85025; 86360; 87536

== ENCOUNTER 2025-03-09 10:11 | Outpatient (REF) | payer MEDICARE, SELFPAY ==
--- NOTE | ~2025-03-09 | XR_ITS ---
EXAMINATION: XR THORACIC SPINE CLINICAL INFORMATION: M54.9 - Dorsalgia, unspecified COMPARISON: Correlated to chest x-ray dated July 31, 2020 TECHNIQUE: AP lateral and swimmer's projection. FINDINGS: Multilevel marginal osteophyte formation and endplate sclerosis decreased intervertebral disc height and volume loss of the vertebral bodies throughout the axial skeleton. Mild S-shaped curvature of the thoracolumbar spine. No acute cortical disruption or gross malalignment. Calcified plaques throughout the aorta. XR/XR thoracic spine 3V IMPRESSION: Multilevel cervical thoracic spondylosis and mild scoliosis. Electronically signed by: Vishal Carey MD 03/09/2025 11:47 AM EST
--- OUTSIDE RECORDS SUMMARY | 2025-03-09 21:58 | XMS_ITS | Patient Health Record ---
Author Organization [facility] Address [address] [place] [address] Care Team Providers Care Business Services Clerk Name Role Phone Ankur Calloway MD Primary Care Provider Jesse Vernon Unavailable [phone] Allergies Allergen (clinical drug ingredient) Drug/Non Drug [...] Risk Notes Problem Pain in left foot (839747320081 107) Pain in left foot (M79.672) Active confirmed Plan Of Treatment Pending Test Test Name Order Date ,[id number] TENDON SHEATH/LIGAMENT 0 11/20/2015 Insurance Providers Payer Name Payer Address Payer Phone Subscriber Number Group Number Insured Name Patient Relationship to Insured Coverage Start Date Coverage End Date Medicare National [employer] [address] [facility] [place] [address] [phone] [id number] Toney Martinez Self - patient is the insured [address] [facility] [address] [place] [address] [id number] Toney Martinez Self - patient is the insured Medical (General) History Medical History History ICD Code Anxiety Back,Hip,and Knee pain Cholesterol Epilepsy Seizures Gall bladder problems Headaches Human immunodeficiency virus (HIV), posi tive Neuropathy Reflux Sciatica chronic sinusitis Measles Chicken pox Surgical History Surgery Date(Month/Year) gall bladder 1995 ganglion cyst 1980
== END 2025-03-09 10:12 | disposition home or self-care (01) ==
LOC: HO.XRAY 10:11
PROVIDERS: PCP Student in an Organized Health Care Education/Training Program; Visit Provider Student in an Organized Health Care Education/Training Program
DX: I10 Essential (primary) hypertension (principal); I48.20 Chronic atrial fibrillation, unspecified; Z21 Asymptomatic human immunodeficiency virus [HIV] infection status; N40.1 Benign prostatic hyperplasia with lower urinary tract symptoms; N13.8 Other obstructive and reflux uropathy; M54.6 Pain in thoracic spine; R05.8 Other specified cough; E11.42 Type 2 diabetes mellitus with diabetic polyneuropathy; E88.10 Lipodystrophy, unspecified; Z79.01 Long term (current) use of anticoagulants; Z79.899 Other long term (current) drug therapy; Z87.898 Personal history of other specified conditions
CPT/HCPCS: 72072; 99212

== ENCOUNTER 2025-03-09 10:11 | Outpatient (AMB) | payer MEDICARE, SELFPAY ==
--- NOTE | 2025-03-09 10:21 | A.OFFPC_ITS ---
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: No Accompanied by: Self / Same As Patient Allergies abacavir (From ZIAGEN) Allergy (Intermediate, Verified 03/09/25 10:21) MOVES FAT IN BODY nevirapine (From Viramune) Allergy (Intermediate, Verified 03/09/25 10:21) HIGH TEMP-WILLA JOHNSONS SYNDROME Medication List - Last Reconciled 03/09/25 by Magno Manning MD albuterol sulfate 90 mcg/actuation 2 puffs inhalation Q4-6H PRN atorvastatin 40 mg PO DAILY cholecalciferol (vitamin D3) 50 mcg PO DAILY [collagen 6,000 multiple units PO] efavirenz 600 mg PO DAILY emtricitabine-tenofovir alafen 200-25 mg (Descovy) 1 tab PO DAILY gabapentin 300 mg PO BID loperamide 2 mg PO Q6H PRN metoprolol succinate ER 100 mg PO DAILY multivitamin,su-fzte-latspejy (Complete Multivitamin tablet) 1 tab PO DAILY omeprazole 20 mg PO BID raltegravir (Isentress) 400 mg PO BID rivaroxaban (Xarelto) 20 mg PO DAILY terazosin 5 mg PO BEDTIME 90 days trimethoprim 100 mg PO DAILY 90 days valacyclovir 500 mg PO TID PRN vitamin B complex (B Complex-Vitamin B12 tablet) 1 tab PO DAILY Tobacco use date assessed: 09/08/24 Fall risk assessment: No Falls in past year Last assessed Fall Risk: 03/09/25 Dental Screening Dental Screen Date: 09/08/24 HPI HPI Comments History of Present Illness Details History of Present Illness The patient is a 80-year-old male presenting for chronic condition management. He has a history of HIV infection and is followed by Shanda Lantigua in [place]. 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 His current antiretroviral regimen includes Efavirenz, Isentress (raltegravir), and Descovy (emtricitabine/tenof ovir). His last labs on February 21 showed a slightly elevated viral load and a CD4 count of 42%. The patient's HbA1c was 7.1% in July, consistent with diabetes mellitus, though he states he is not actively being treated for it. He has a history of fluctuating glucose levels over many years with his previous physician. He has a history of atrial fibrillation, for which he takes metoprolol and Xarelto. He also has hypercholesterolemia, which is managed with atorvastatin. The patient underwent a left carotid endarterectomy by Dr. Toledo approximately three to four years ago. The patient has a history of two seizures in close proximity around 1998, for which he was treated with high-dose gabapentin and subsequently weaned off. He later developed peripheral neuropathy in his calves and now takes gabapentin 300 mg twice daily, with an occasional extra dose as needed. For nearly two years, he has had nagging upper back pain between his shoulder blades that limits his physical activity, including walking. He has a history of lower back pain, which improved with housekeeper caregiver. He reports a chronic productive cough with sticky, deep green phlegm for about 1.5 to 2 years. He notes the onset of this phlegm and the loss of his singing voice occurred after his carotid endarterectomy. Other history includes benign prostatic hyperplasia treated with terazosin and a history of severe bladder inflammation, for which he underwent an endoscopy with scraping and has since been on prophylactic trimethoprim. He is up to date on his colonoscopy and has received his COVID, flu, and RSV vaccinations. Medical History: - HIV infection - Lipodystrophy - Type 2 Diabetes Mellitus - Hypertension - Atrial fibrillation - Hypercholesterolemia - Peripheral neuropathy - Benign Prostatic Hyperplasia (BPH) - History of cystitis/bladder inflammati on - History of seizures (c. 1998) - Chronic upper back pain - Chronic productive cough Surgical History: - Left carotid endarterectomy (approxima sumit 3-4 years ago) - Bladder endoscopy with scraping Medications: - Efavirenz 600 mg once daily for HIV - Isentress (raltegravir) 400 mg twice d aily for HIV - Descovy 225 mg (emtricitabine/tenofovi r) for HIV - Atorvastatin for cholesterol - Gabapentin 300 mg twice daily for neur opathy, with an occasional third dose as needed - Metoprolol 100 mg for atrial fibrillat ion - Xarelto 20 mg daily for atrial fibrill ation - Terazosin for prostate - Trimethoprim for prophylaxis Diagnostic Results: - Labs (from July): HbA1c 7.1%. - Labs (from February 21): - Anion gap: Low (noted to be not clinic ally significant). - Liver enzymes: ALT 44 (cutoff 40), AST 47 (cutoff 37). - CD4 count: 42%. - Viral load: Slightly elevated. Social History - Functional Status: Physical activity i s limited due to chronic back pain, which prevents him from walking longer distances. 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 - Diet: Advised to moderate food intake, avoid sweet foods, and have an early dinner to help manage blood sugar. [facility] Medical History (Updated 03/09/25 @ 11:10 by Magno Manning MD) Diabetes Productive cough Persistent atrial fibrillation Upper back pain Paroxysmal atrial fibrillation Chronic atrial fibrillation History of seizure HIV positive History of cardioversion HTN (hypertension) Bilateral carotid artery disease Surgical History Hx of tonsillectomy History of surgical removal of ganglion cyst Hx of colonoscopy (~01/17/22) History of carotid endarterectomy (08/17/18) Hx of cholecystectomy Family History Father Stroke Mother No problems noted. Social History Housing: House Are you a primary caretaker to a significant other at home: No Do you presently have visiting nurse or other home services: No Patient Tobacco Use Status: Former Tobacco user Tobacco use type: Cigarette e-Cigarette/Vaping Use: Never Used Second Hand Smoke Exposure: No Advance Directives Date on File: 01/26/20 service: No Current occupational status: retired Cognitive needs: No Hearing needs: No Vision needs: No Questionnaire Thrive Questionnaire Date Thrive assessed: 09/08/24 AUDIT C Alcohol Use Questionnaire (AUDIT-C) 2. How many drinks containing alcohol do you have on a typical day when you are drinking?: 1 or 2 3. How often do you have six or more drinks on one occasion?: Never Total Score: 0 NÉSTOR-7 AMB Questionnaire NÉSTOR-7 Date NÉSTOR - 7 assessed: 09/08/24 Source: Developed by Drs. Iglesia Zarate, Jolanta Blackburn, Errol Lee and colleagues, with an educational kye from [employer]. Review of Systems Narrative Review of Systems - Constitutional: Reports concerns about body composition changes (lipodystrophy) but denies other constitutional symptoms. - Respiratory: Reports a chronic productive cough for 1.5-2 years with sticky, deep green phlegm that he needs to actively expectorate. - Genitourinary: History of urinary frequency, which has since resolved. - Musculoskeletal: Reports chronic nagging pain for almost two years, located between the shoulder blades. - Neurological: Reports symptoms of peripheral neuropathy in his legs and feet, particularly after activity. All systems reviewed & are unremarkable except as reviewed in HPI and above Physical exam (Primary Care) Vital Signs: Last Vital Signs Temp 98.5 F 03/09/25 10:31 Pulse 71 03/09/25 10:31 Resp 2 L 03/09/25 10:31 BP 148/78 H 03/09/25 10:31 Pulse Ox 98 03/09/25 10:31 Oxygen Delivery Method Room Air 03/09/25 10:31 BMI result Body Mass Index 33.4 Tobacco/Smoking Status: Tobacco use Status Tobacco use date assessed 09/08/24 03/09/25 10:23 Patient Tobacco Use Status Former Tobacco user 03/09/25 10:23 Tobacco use type Cigarette 03/09/25 10:23 e-Cigarette/Vaping Use Never Used 03/09/25 10:33 Thrive Assessment: Date of Thrive Assessment Date Thrive assessed 09/08/24 03/09/25 10:23 Narrative Physical Exam General: +Alert and oriented, Well nourished, No acute distress. Eye: Pupils are equal, round and reactive to light, Intact accommodation, Extraocular movements are intact, Normal conjunctiva, Vision unchanged. HENT: Normocephalic, Atraumatic, Tympanic membranes are clear, Normal hearing, Oral mucosa is moist, No pharyngeal erythema, Ear canals patent. Respiratory: Lungs CTA bilaterally, No wheeze, Respirations are non-labored, Persistent sticky phlegm, dark green in color. Cardiovascular: Regular rate, Regular rhythm, S1 auscultated, S2 auscultated, No murmur, Good pulses equal in all extremities, Normal peripheral perfusion, No edema, Blood pressure elevated. Gastrointestinal: Soft, Non-tender, Non-distended, Normal bowel sounds, No organomegaly. Musculoskeletal: Normal range of motion, Normal strength, No tenderness, No swelling, No deformity, Normal gait, Back pain between shoulder blades. Integumentary: Warm, Dry, [place], Intact. Neurologic: Alert, Oriented, Normal sensory, Normal motor function, No focal defects, Cranial Nerves II-XII are grossly intact, Normal deep tendon reflexes. Psychiatric: Cooperative, Appropriate mood & affect, Normal judgment. This encounter meets criteria for a Level 5 established patient visit due to the high complexity of medical decision-making. The patient presents with multiple chronic conditions requiring intensive management, including severely uncontrolled hypertension with systolic readings in the 180s requiring immediate medication initiation, longstanding HIV on multidrug antiretroviral therapy with a recently elevated viral load and CD4 count monitoring, type 2 diabetes requiring individualized glycemic goal-setting, chronic thoracic back pain needing diagnostic imaging, and chronic productive cough of unclear etiology. The patient's regimen includes high-risk medications such as Xarelto, metoprolol, multiple antiretroviral agents, and gabapentin, all of which require careful review and ongoing risk mitigation. Extensive counseling and coordination of care were provided regarding blood pressure risk, ART continuation, diet, activity limitations, and need for thoracic spine imaging. The visit involved addressing multiple interconnected conditions with potential for significant morbidity, meeting high-complexity MDM. Coding Level of Care Code Est Pt Level 5 (30429) Complex EM visit Add On G2211 Diagnoses HTN (hypertension) I10 Chronic atrial fibrillation I48.20 HIV positive Z21 BPH w urinary obs/LUTS N40.1; N13.8 History of seizure Z87.898 Upper back pain M54.9 Productive cough R05.8 Type 2 diabetes mellitus without complication, without long-term current use of insulin E11.9 Diabetes mellitus type: type 2 Diabetes mellitus senior living insulin use: without senior living use Diabetes mellitus complication status: without complication Assessment & Plan Assessment & Plan (1) HTN (hypertension): Comment: - The patient has severely elevated blood pressure, with in-office readings in the 180s systolic, which is considered unsafe. - This is not fully explained by recent activity. - The plan is to start amlodipine 5 mg once daily. - It was noted that his metoprolol is for rate control for atrial fibrillation and not primarily for blood pressure. Code(s): I10 - Essential (primary) hypertension Category: Medical (2) Chronic atrial fibrillation: Comment: - Currently on Metoprolol Succinate 100mg Daily & Xarelto Code(s): I48.20 - Chronic atrial fibrillation, unspecified Category: Medical (3) HIV positive: Comment: - The patient is stable on his current antiretroviral therapy and is managed by his specialist. - Plan is to continue current management under his HIV provider. Code(s): Z21 - Asymptomatic human immunodeficiency virus [HIV] infection status Category: Medical (4) BPH w urinary obs/LUTS: Comment: - Stable currently on terazosin and follows with Dr. Beaulieu Code(s): N40.1 - Benign prostatic hyperplasia with lower urinary tract symptoms; N13.8 - Other obstructive and reflux uropathy Category: Medical (5) History of seizure: Comment: - Previously on gabapentin but been seizure free since the Code(s): Z87.898 - Personal history of other specified conditions Category: Medical (6) Upper back pain: Comment: - The patient has chronic pain between his shoulder blades that has persisted for almost two years and limits his physical activity. - The etiology is unclear. - An x-ray of the thoracic spine will be ordered to rule out underlying pathology. Code(s): M54.9 - Dorsalgia, unspecified Category: Medical (7) Productive cough: Comment: - The patient reports a chronic cough with sticky, green phlegm that began after his carotid surgery. - The cause is unclear. - No new interventions were initiated at this visit. Code(s): R05.8 - Other specified cough Category: Medical (8) Diabetes: Comment: - The patient's last HbA1c was 7.1%, which is in the diabetic range. - Given his age, a target of up to 7.5% is acceptable, so no pharmacologic treatment will be started at this time. - The plan is to continue monitoring and focus on dietary modifications, including sugar reduction and meal timing. 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 - Cancer Screening: Colonoscopy is up-to-date. - Lifestyle: Advised to maintain physical activity and stay moving. - Diet: Counseled on dietary modifications for blood sugar control, including avoiding sugary foods, practicing moderation, and having an early dinner without late-night snacking. - Follow-up: Plan to return in six months for an annual physical with lab work to be completed one week prior. Patient was informed and verbally consented to the use of an ambient scribe for clinic note documentation during this visit. Plan I discussed my concern about the patient's severely elevated blood pressure, which was measured in the 180s systolic range during the visit. I explained that these levels are unsafe and not simply a result of recent movement, and therefore I am starting him on amlodipine 5 mg daily. I clarified that his current metoprolol is for his atrial fibrillation and does not adequately control blood pressure. We discussed his chronic upper back pain, and I recommended an x-ray of his thoracic spine to rule out any underlying issues, which he agreed to. Regarding his blood sugar, I explained that while his HbA1c of 7.1% meets the definition of diabetes, his level is acceptable for his age, and we will focus on diet rather than starting new medication for now. I advised him to schedule a follow-up visit in six months for his annual physical and to have his blood work done one week before that appointment. Orders: Orders Complete Blood Count Auto Diff 6 Months Z00.00 - Encounter for general adult medical examination without abnormal findings Comprehensive Met. Panel 6 Months Z00.00 - Encounter for general adult medical examination without abnormal findings Microalbumin, Random (w Creat) 6 Months Z00.00 - Encounter for general adult medical examination without abnormal findings TSH reflex Free T4 6 Months Z00.00 - Encounter for general adult medical examination without abnormal findings Hemoglobin A1c 6 Months Z00.00 - Encounter for general adult medical examinat ion without abnormal findings Lipid Panel 6 Months Z00.00 - Encounter for general adult medical examination without abnormal findings Vitamin D 25-OH Total 6 Months Z00.00 - Encounter for general adult medical examination without abnormal findings XR thoracic spine 3V Today M54.9 - Dorsalgia, unspecified Medications: New amlodipine 5 mg PO DAILY 90 tabs 2RF Patient Instructions: - Please start taking amlodipine 5 mg, one pill by mouth once a day, for high blood pressure. - Continue all your current medications as prescribed, including those for HIV, atrial fibrillation (metoprolol and Xarelto), cholesterol (atorvastatin), and nerve pain (gabapentin). - Please go for an x-ray of your upper back. The order has been placed, and you can go to the imaging department today. - To help manage your blood sugar, try to avoid sugary foods, eat meals in moderation, and have an early dinner with no snacks at night. - Try to stay as active as your back pain comfortably allows. - Please schedule a follow-up appointment in six months for your annual physical. - We will need you to get blood work done one week before your next appointment.
[2025-03-09 10:31] VITALS: BP 148/78; PULSE 71; RESP 2; TEMP 36.9; O2SAT 98; BMI 33.4
--- OUTSIDE RECORDS SUMMARY | 2025-03-09 19:25 | XMS_ITS | Patient Health Record ---
Author Organization [facility] Address [address] [place] [address] Care Team Providers Care Screw Machine Hand Name Role Phone Brodie (RETIRED) Ankur MEMBRENO Primary Care Provide r Unavailable Mike Aquino Jr Unavailable Lindsay Blas Unavailable Unavailable Allergies Allergen (clinical drug ingredient) Drug/Non Drug Allergy documented on EMR Reaction Allergy Type Onset Date Status Neveripine (uncoded) Unknown Allergy Active abacavir Ziagen Unknown Drug Allergy Active Reason For Referral No Information Medications Medication SIG (Take, Route, Frequency, Duration) Notes Start Date End Date Status levOCARNitine 330 MG Tablet 3 tablets Or ally Twice a day Active Multi Vitamin/Minerals 1 Tablet 1 Orally qd Active CoQ-10 100 MG Capsule as directed Orally Active Daily Vitamin - Tablet 1 tablet Orally O nce a day; Duration: 30 day(s) Active Vitamin B Complex 1 Tablet 1 Orally qd Active Citracal Calcium Gummies 250-115-250 MG-MG-UNIT Tablet Chewable as directed Orally Active Atorvastatin Calcium 40 MG Tablet 1 tablet Orally Once a day Active Gabapentin 300 MG Capsule 2 capsule Orally qd Active Benadryl 25 MG Capsule 1 capsule as need ed Orally prn Active Loperamide HCl 2 MG Capsule 1 capsule Or ally 3 time(s) a day Active Omeprazole 20 MG Capsule Delayed Release 1 capsule Orally Once a day Active Ibuprofen 400 MG Tablet 1 tablet Orally Three times a day Active Fish Oil 1000 MG Capsule Delayed Release 1 capsule Orally Once a day Active Aspir-81 81 MG Tablet Delayed Release 1 tablet Orally Once a day Active Doxazosin Mesylate 2 MG Tablet 1 tablet Orally twice a day Active ALPRAZolam 0.25 MG Tablet 1 tablet Orally prn Active Viread 300 MG Tablet 1 tablet Orally Onc e a day Active Hyoscyamine Sulfate 0.125 MG Tablet 1 tablet as needed Orally every 4 hrs Active Tamsulosin HCl 0.4 MG Capsule 1 capsule Orally Once a day Active valACYclovir HCl 500 MG Tablet 1 tablet Orally Once a day; Duration: 10 day(s) Active Tums 500 MG Tablet Chewable 1 tablet Orally prn Active ProAir HFA 108 (90 Base) MCG/ACT Aerosol Solution 1 puff as needed Inhalation every 4 hrs Active Xarelto 20 MG Tablet 1 tablet with food Orally Once a day Active Ipratropium [employer] 0.03 % Solution 2 sprays in each nostril Nasally Twice a day; Duration: 30 day(s) Active Multaq 400 MG Tablet 1 tablet with meals Orally Twice a day Active Albuterol Sulfate 108 (90 Base) MCG/ACT Aerosol Powder Breath Activated 1 puff as needed Inhalation every 4 hrs Active MiraLax (colon prep) 17 GM/SCOOP Powder mixed with Gatorade or Crystal Light Orally begin at 5:00 p.m. the day before the procedure; Duration: 1 day 01/02/2022 Active Metoprolol Succinate ER 50 MG Tablet Extended Release 24 Hour 1 tablet Orally Once a day; Duration: 30 day(s) Active Colyte with Flavor Packs 240 GM Solution Reconstituted As directed Orally Over the specified time.; Duration: 1 day(s) 06/19/2016 Active Sustiva 600 MG Tablet 1 Orally qd Active Isentress 400 MG Tablet 1 tablet Orally Twice a day Active Immunizations Vaccine Route Administration Date Status Comme nts Flu vaccine no Preserv 3 and > Unknown 01/30/2016 Admin istered Influenza Unknown 03/13/2021 Administered Social History Social History Additional Details Category Social Info Options Details Miscellaneous: Marital status: Occupation: retired Section Notes: only smoked for 3 years only smoked for 3 years only smoked for 3 years Problems Problem Type SNOMED Code ICD Code Onset Dates Problem Status W/U Status Risk Notes Problem Colon cancer screening (830541889) Colon cancer screening (Z12.11) Active confirmed Problem Long-term current use of anticoagulant (388651655) 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 (Z79.01) Active confirmed Problem History of polyp of colon (situation) (622945143) Personal history of colonic polyps (Z86.010) Active confirmed Problem Irritable bowel syndrome with diarrhea (025103398) Irritable bowel syndrome with diarrhea (K58.0) Active confirmed Problem Long-term current use of antiplatelet drug (392377854565875) USP (current) use of aspirin (Z79.82) Active confirmed Problem Diverticulosis of colon (131187447) Diverticulosis of colon (K57.30) Active confirmed Plan Of Treatment Future Test Test Name Order Date COLONOSCOPY 06/19/2016 COLONOSCOPY 01/02/2022 Insurance Providers Payer Name Payer Address Payer Phone Subscriber Number Group Number Insured Name Patient Relationship to Insured Coverage Start Date Coverage End Date MEDICARE OF [place] [address] [place] [address] [id number] DILMA FENTON Self - patient is the insured [employer] ATT[employer] CLAIMS [address] [place] [address] [id number] DILMA FENTON Self - patient is the insured Medical (General) History Medical History History ICD Code HIV infection Seizure disorder neuropathy depression hypercholesterolemia hypogonadism Irritable bowel syndrome hypertension BPH Atrial fibrillation Colonoscopy 08/05, tubular adenoma, five- year followup Surgical History Surgery Date(Month/Year) cholecystectomy ganglion cyst removed on wrist and neck tonsillectomy
== END 2025-03-09 10:59 | disposition home or self-care (01) ==
PROVIDERS: PCP Student in an Organized Health Care Education/Training Program; Visit Provider Student in an Organized Health Care Education/Training Program
DX: I10 Essential (primary) hypertension (principal); I48.20 Chronic atrial fibrillation, unspecified; Z21 Asymptomatic human immunodeficiency virus [HIV] infection status; N40.1 Benign prostatic hyperplasia with lower urinary tract symptoms; N13.8 Other obstructive and reflux uropathy; Z87.898 Personal history of other specified conditions; M54.9 Dorsalgia, unspecified; R05.8 Other specified cough; E11.9 Type 2 diabetes mellitus without complications

== ENCOUNTER → 2025-03-09 11:14 | Outpatient (BNV) | payer MEDICARE, SELFPAY | PROVIDERS: PCP Student in an Organized Health Care Education/Training Program; Visit Provider Radiology Diagnostic Radiology | DX: M47.813 Spondylosis without myelopathy or radiculopathy, cervicothoracic region (principal); M41.84 Other forms of scoliosis, thoracic region | CPT/HCPCS: 72072 ==